=== PATIENT | male | born 1965 | race Caucasian/White ===

== ENCOUNTER 2019-03-25 23:20 | Inpatient (IN) | payer OTHER ==
--- OUTSIDE RECORDS SUMMARY | 2019-03-25 23:23 | XMS REPORT ---
:1965 [facility] Address [address] [place] [address] Care Team Providers Name Role Phone NIKITABRETTTO Unavailable Unavailable Problems This patient has no known problems. Allergies, Adverse Reactions, Alerts This patient has no known allergies or adverse reactions. Medications This patient has no known medications. Results Test Description Test Time Test Comments Text Results Atomic Results Result Comments BASIC METABOLIC PANEL 2019-03-04 06:15:00 Test Item Value Reference Range Comments SODIUM (BEAKER) (test 139 meq/L 136-145 mbna=944) POTASSIUM (BEAKER) (test 4.0 meq/L 3.5-5.1 idla=873) CHLORIDE (BEAKER) (test 107 meq/L 98-107 uigu=370) CO2 (BEAKER) (test afpk=569) 27 meq/L 22-29 BLOOD UREA NITROGEN (BEAKER) 16 mg/dL 7-21 (test jwnd=754) CREATININE (BEAKER) (test 1.06 mg/dL 0.57-1.25 jgjf=661) GLUCOSE RANDOM (BEAKER) 106 mg/dL 70-105 (test yzfc=329) CALCIUM (BEAKER) (test 8.8 mg/dL 8.4-10.2 wpfa=970) EGFR (BEAKER) (test 73 mL/min/1.73 sq m ESTIMATED GFR IS NOT dbsg=4644) ACCURATE CREATININE CLEARANCE IN PREDICTING GLOMERULAR FILTRATION RATE. ESTIMATED GFR IS NOT APPLICABLE FOR DIALYSIS PATIENTS. CBC (HEMOGRAM ONLY)2019-03-04 05:59:00 Test Item Value Reference Range Comments WHITE BLOOD CELL COUNT (BEAKER) (test hirh=461) 5.8 K/ L 3.5-10.5 RED BLOOD CELL COUNT (BEAKER) (test ruur=304) 4.18 M/ L 4.63-6.08 HEMOGLOBIN (BEAKER) (test mmgg=520) 13.3 GM/DL 13.7-17.5 HEMATOCRIT (BEAKER) (test mwbt=609) 40.3 % 40.1-51.0 MEAN CORPUSCULAR VOLUME (BEAKER) (test ksja=333) 96.4 fL 79.0-92.2 MEAN CORPUSCULAR HEMOGLOBIN (BEAKER) (test 31.8 pg 25.7-32.2 rlaa=148) MEAN CORPUSCULAR HEMOGLOBIN CONC (BEAKER) (test 33.0 GM/DL 32.3-36.5 pqen=928) RED CELL DISTRIBUTION WIDTH (BEAKER) (test 13.4 % 11.6-14.4 zxxy=018) PLATELET COUNT (BEAKER) (test bihh=079) 157 K/CU MM 150-450 MEAN PLATELET VOLUME (BEAKER) (test wljt=163) 11.6 fL 9.4-12.4 NUCLEATED RED BLOOD CELLS (BEAKER) (test 0 /100 WBC 0-0 vpqm=158)
[2019-03-26] MEDS ORDERED: MORPHINE 2 MG/ML SYR ONE (00:08)
[2019-03-26] MEDS ORDERED: FAMOTIDINE 20 MG/2 ML VIAL IV ONE (00:08)
[2019-03-26] MEDS ORDERED: ONDANSETRON 4 MG/2 ML VIAL ONE (00:08)
[2019-03-26 00:30] LABS: Basophils % 0.4 % (0-1.3); Hematocrit 46.6 % (39.6-49.0); Lymphocytes % 9.4 % (15.3-44.8); MPV 10.8 fL (7.6-11.3); Protime INR 1.06; RBC Red Blood Cell Count 4.97 M/uL (4.33-5.43)
[2019-03-26 00:35] LABS: ALT/SGPT 40 U/L (12-78); AST/SGOT 29 U/L (15-37); Albumin 4.6 g/dL (3.4-5.0); Alkaline Phosphatase 70 U/L (45-117); BUN Blood Urea Nitrogen 19 mg/dL (7-18); Bicarbonate 26 mmol/L (21-32); Bilirubin Direct 0.3 mg/dL (0-0.2); Bilirubin Total 1.1 mg/dL (0.2-1.0); Glucose Level 189 mg/dL (74-106); Lipase 69 U/L (73-393); Magnesium 1.9 mg/dL (1.8-2.4); NT PRO-BNP 503 pg/mL (<125); Potassium 3.7 mmol/L (3.5-5.1); Protein, Total 7.9 g/dL (6.4-8.2); Sodium Level 139 mmol/L (136-145); Troponin (Emerg Dept Use Only) < 0.02 ng/mL (0.0-0.045)
[2019-03-26] MEDS ORDERED: METRONIDAZOLE 500mg IVPB 500 MG/100 ML BAG IV ONE (01:08)
[2019-03-26] MEDS ORDERED: CEFTRIAXONE/SWI 1gm 1 GM/10 ML SYR ONE (01:08)
--- NOTE | 2019-03-26 01:25 | ER ---
Nurse's Notes [facility] Name: Terry Burns Age: 54 yrs Sex: Male : 1965 Arrival Date: 03/25/2019 Time: 23:25 Bed 8 Private MD: Diagnosis: Other intestinal obstruction-small bowel obstruction;Abdominal tenderness;Vomiting;Type 2 diabetes mellitus Presentation: 03/25 23:25 Presenting complaint: Patient states: N/V 2 hours after eating at [employer]. pt is the ak1 only one ill, pt is the only one who ate there. pt c/o lower left abd. pt was given 4 zofran IV in route. Transition of care: patient was not received from another setting of care. Onset of symptoms was March 25, 2019. Risk Assessment: Do you want to hurt yourself or someone else? Patient reports no desire to harm self or others. Initial Sepsis Screen: Does the patient meet any 2 criteria? No. Patient's initial sepsis screen is negative. Does the patient have a suspected source of infection? No. Patient's initial sepsis screen is negative. Care prior to arrival: None. 23:25 Method Of Arrival: EMS: [facility] 23:25 Acuity: NIRAJ 3 ak1 Triage Assessment: 23:28 General: Appears in no apparent distress. uncomfortable, well groomed, Behavior is ak1 calm, cooperative. Pain: Complains of pain in left lower quadrant. EENT: No signs and/or symptoms were reported regarding the EENT system. Neuro: Level of Consciousness is awake, alert, obeys commands, Oriented to person, place, time, situation, Moves all extremities. Speech is normal. Cardiovascular: Heart tones S1 S2 present. Respiratory: Airway is patent Respiratory effort is even, unlabored. GI: Abdomen is round Bowel sounds present X 4 quads. Reports lower abdominal pain, nausea, vomiting. : No signs and/or symptoms were reported regarding the genitourinary system. Derm: No signs and/or symptoms reported regarding the dermatologic system. Musculoskeletal: No signs and/or symptoms reported regarding the musculoskeletal system. Historical: - Allergies: 23:28 NKDA; ak1 - Home Meds: 23:37 allopurinol 100 mg Oral tab 1 tab once daily [Active]; [place] 10-325 mg Oral tab every 6 ak1 hours [Active]; Entresto 49-51 mg Oral tab 1 tab 2 times per day [Active]; carvedilol 25 mg oral tab 1 tab 2 times per day [Active]; amiodarone 200 mg Oral tab 1 tab once daily [Active]; levothyroxine 25 mcg tab 1 tab once daily [Active]; atorvastatin 10 mg oral tab 1 tab once daily [Active]; venlafaxine 150 mg oral tr24 1 tab twice daily [Active]; Lyrica 150mg Oral 1 cap 2 times per day [Active]; - PMHx: 23:28 arthralgias; CAD; CHF; CONSTIPATION - CHRONIC; Diabetes - NIDDM; Depression; Chronic ak1 pain; fatigue; Gout; Hyperlipidemia; Hypertension; Irregular heart rate; insomnia; muscle spasms; Pacemaker; wrist sprain; PERIPHERAL NEUROPATHY; low back pain; - PSHx: 23:28 Vasectomy; VSD repair; pacemaker/defibtrilator; back; neck; ak1 - Immunization history:: Adult Immunizations unknown. - Social history:: Smoking status: Patient/guardian denies using tobacco. - Ebola Screening: : No symptoms or risks identified at this time. - Family history:: not pertinent. Screenin:38 Abuse screen: Denies threats or abuse. Denies injuries from another. Nutritional ak1 screening: No deficits noted. Tuberculosis screening: No symptoms or risk factors identified. Fall Risk None identified. Assessment: 23:30 Reassessment: Patient appears in no apparent distress at this time. No changes from ak1 previously documented assessment. see triage assessment. no vomiting noted at this time. Vital Signs: 23:28 BP 164 / 86; Pulse 70; Resp 20; Temp 98.1; Pulse Ox 98% on R/A; Weight 95.25 kg (R); ak1 Height 6 ft. 0 in. (182.88 cm) (R); Pain 4/10; 03/26 01:22 BP 113 / 86; Pulse 69; Resp 18; Temp 98.1; Pulse Ox 96% on R/A; ak1 02:20 BP 119 / 57; Pulse 67; Resp 14; Temp 98.1; Pulse Ox 95% on R/A; ak1 03/25 23:28 Body Mass Index 28.48 (95.25 kg, 182.88 cm) ak1 ED Course: 03/25 23:25 Patient arrived in ED. ak1 23:26 Dov Gloria MD is Attending Physician. [facility] [place] 23:26 Triage completed. ak1 23:28 Arm band placed on Patient placed in an exam room, on a stretcher, on pulse oximetry, ak1 Patient notified of wait time. 23:30 Maintain EMS IV. Dressing intact. Site clean \T\ dry. Gauge \T\ site: 22g right AC. ak 1 23:34 Rose Bernardo, RN is Primary Nurse. ak1 23:38 Patient has correct armband on for positive identification. Bed in low position. Call ak1 light in reach. Side rails up X2. Pulse ox on. NIBP on. 03/26 00:16 CT Abd/Pelvis - Without Contrast In Process Unspecified. EDMS 00:34 XRAY Chest (1 view) In Process Unspecified. EDMS 01:21 NGT: inserted 12 Fr. via right nare. verified placement of air over stomach, verified ak1 return of gastric contents, to intermittent suction. Returned gastric contents. Patient tolerated well. 01:23 Augustin Arnold MD is Hospitalizing Provider. [facility] [place] 02:30 No provider procedures requiring assistance completed. Patient admitted, IV remains in ak1 place. Administered Medications: 00:18 Drug: NS 0.9% 250 ml Route: IV; Rate: bolus; Site: right antecubital; ak1 02:33 Follow up: IV Status: Completed infusion; IV Intake: 250ml ak1 00:18 Drug: NS 0.9% 1000 ml Route: IV; Rate: 125 ml/hr; Site: right antecubital; ak1 02:33 Follow up: IV Status: Infusion continued upon admission ak1 00:18 Drug: Zofran 4 mg Route: IVP; Site: right antecubital; ak1 00:57 Follow up: Response: No adverse reaction ak1 00:18 Drug: Pepcid 20 mg Route: IVP; Site: right antecubital; ak1 00:57 Follow up: Response: No adverse reaction ak1 00:19 Drug: morphine 2 mg Route: IVP; Site: right antecubital; ak1 02:36 Follow up: Response: No adverse reaction ak1 01:21 Drug: Rocephin 1 grams Route: IV; Rate: per protocol; Site: right antecubital; ak1 02:33 Follow up: IV Intake: 10ml ak1 02:34 Follow up: IV Status: Completed infusion ak1 01:21 Drug: Flagyl 500 mg Volume: 100 ml; Route: IVPB; Rate: 200 ml/hr; Infused Over: 30 ak1 mins; Site: right antecubital; 02:12 Follow up: IV Status: Completed infusion; IV Intake: 100ml lp1 02:33 Follow up: IV Status: Completed infusion ak1 Intake: 02:12 IV: 100ml; Total: 100ml. lp1 02:33 IV: 250ml; Total: 350ml. ak1 02:33 IV: 10ml; Total: 360ml. ak1 Outcome: 01:25 Decision to Hospitalize by Provider. aman 02:35 Admitted to Med/surg accompanied by tech, via stretcher, room 217, with chart, Report ak1 called to curt Montano 02:35 Condition: stable 02:35 Instructed on the need for admit. 03:10 Patient left the ED. lp1 Signatures: Dispatcher [employer] Dov Kenney MD MD cha Pena, Laura, RN RN lp1 Rose Bernardo, RN RN ak1
--- NOTE | 2019-03-26 01:26 | EDPHYS ---
Physician Documentation [facility] Name: Terry uBrns Age: 54 yrs Sex: Male : 1965 Arrival Date: 03/25/2019 Time: 23:25 Bed 8 Private MD: SANDRO Physician Dov Gloria HPI: 03/26 00:14 This 54 yrs old Male presents to ER via EMS with complaints of abdominal pain aman and vomiting. 00:14 The patient presents with abdominal pain in the upper abdomen, in the lower abdomen, aman abdominal distention in the upper abdomen, in the lower abdomen. Onset: The symptoms/episode began/occurred just prior to arrival. The patient presents to the emergency department with nausea, vomiting, abdominal pain, of the right upper quadrant and left upper quadrant. Onset: The symptoms/episode began/occurred just prior to arrival. Possible causes: unknown. The symptoms are aggravated by nothing. The symptoms are alleviated by nothing. Associated signs and symptoms: The patient has no apparent associated signs or symptoms. The symptoms do not radiate. Historical: - Allergies: 03/25 23:28 NKDA; ak1 - Home Meds: 23:37 allopurinol 100 mg Oral tab 1 tab once daily [Active]; [place] 10-325 mg Oral tab every 6 ak1 hours [Active]; Entresto 49-51 mg Oral tab 1 tab 2 times per day [Active]; carvedilol 25 mg oral tab 1 tab 2 times per day [Active]; amiodarone 200 mg Oral tab 1 tab once daily [Active]; levothyroxine 25 mcg tab 1 tab once daily [Active]; atorvastatin 10 mg oral tab 1 tab once daily [Active]; venlafaxine 150 mg oral tr24 1 tab twice daily [Active]; Lyrica 150mg Oral 1 cap 2 times per day [Active]; - PMHx: 23:28 arthralgias; CAD; CHF; CONSTIPATION - CHRONIC; Diabetes - NIDDM; Depression; Chronic ak1 pain; fatigue; Gout; Hyperlipidemia; Hypertension; Irregular heart rate; insomnia; muscle spasms; Pacemaker; wrist sprain; PERIPHERAL NEUROPATHY; low back pain; - PSHx: 23:28 Vasectomy; VSD repair; pacemaker/defibtrilator; back; neck; ak1 - Immunization history:: Adult Immunizations unknown. - Social history:: Smoking status: Patient/guardian denies using tobacco. - Ebola Screening: : No symptoms or risks identified at this time. - Family history:: not pertinent. ROS: 03/26 00:14 Constitutional: Negative for fever, chills, and weight loss, Eyes: Negative for injury, aman pain, redness, and discharge, ENT: Negative for injury, pain, and discharge, Neck: Negative for injury, pain, and swelling, Cardiovascular: Negative for chest pain, palpitations, and edema, Respiratory: Negative for shortness of breath, cough, wheezing, and pleuritic chest pain, Back: Negative for injury and pain, : Negative for injury, bleeding, discharge, and swelling, MS/Extremity: Negative for injury and deformity, Skin: Negative for injury, rash, and discoloration, Neuro: Negative for headache, weakness, numbness, tingling, and seizure, Psych: Negative for depression, anxiety, suicide ideation, homicidal ideation, and hallucinations, Allergy/Immunology: Negative for hives, rash, and allergies, Endocrine: Negative for neck swelling, polydipsia, polyuria, polyphagia, and marked weight changes, Hematologic/Lymphatic: Negative for swollen nodes, abnormal bleeding, and unusual bruising. Abdomen/GI: Positive for abdominal pain, nausea and vomiting, of the right upper quadrant, left upper quadrant, right lower quadrant and left lower quadrant. Exam: 00:14 Constitutional: This is a well developed, well nourished patient who is awake, alert, aman and in no acute distress. Head/Face: Normocephalic, atraumatic. Eyes: Pupils equal round and reactive to light, extra-ocular motions intact. Lids and lashes normal. Conjunctiva and sclera are non-icteric and not injected. Cornea within normal limits. Periorbital areas with no swelling, redness, or edema. ENT: Nares patent. No nasal discharge, no septal abnormalities noted. Tympanic membranes are normal and external auditory canals are clear. Oropharynx with no redness, swelling, or masses, exudates, or evidence of obstruction, uvula midline. Mucous membranes moist. Neck: Trachea midline, no thyromegaly or masses palpated, and no cervical lymphadenopathy. Supple, full range of motion without nuchal rigidity, or vertebral point tenderness. No Meningismus. Chest/axilla: Normal chest wall appearance and motion. Nontender with no deformity. No lesions are appreciated. Cardiovascular: Regular rate and rhythm with a normal S1 and S2. No gallops, murmurs, or rubs. Normal PMI, no JVD. No pulse deficits. Respiratory: Lungs have equal breath sounds bilaterally, clear to auscultation and percussion. No rales, rhonchi or wheezes noted. No increased work of breathing, no retractions or nasal flaring. Back: No spinal tenderness. No costovertebral tenderness. Full range of motion. Male : Normal genitalia with no discharge or lesions. Skin: Warm, dry with normal turgor. Normal color with no rashes, no lesions, and no evidence of cellulitis. MS/ Extremity: Pulses equal, no cyanosis. Neurovascular intact. Full, normal range of motion. Neuro: Awake and alert, GCS 15, oriented to person, place, time, and situation. Cranial nerves II-XII grossly intact. Motor strength 5/5 in all extremities. Sensory grossly intact. Cerebellar exam normal. Normal gait. Psych: Awake, alert, with orientation to person, place and time. Behavior, mood, and affect are within normal limits. 00:14 Abdomen/GI: Inspection: bruising, Bowel sounds: active, all quadrants, Palpation: mild abdominal tenderness, in the right upper quadrant and left upper quadrant. Vital Signs: 03/25 23:28 BP 164 / 86; Pulse 70; Resp 20; Temp 98.1; Pulse Ox 98% on R/A; Weight 95.25 kg (R); ak1 Height 6 ft. 0 in. (182.88 cm) (R); Pain 4/10; 03/26 01:22 BP 113 / 86; Pulse 69; Resp 18; Temp 98.1; Pulse Ox 96% on R/A; ak1 02:20 BP 119 / 57; Pulse 67; Resp 14; Temp 98.1; Pulse Ox 95% on R/A; ak1 03/25 23:28 Body Mass Index 28.48 (95.25 kg, 182.88 cm) ak1 MDM: 03/25 23:26 Patient medically screened. [facility] 03/26 00:14 Data reviewed: vital signs, nurses notes, lab test result(s), EKG, radiologic studies, [facility] CT scan, plain films. 03/25 23:51 Order name: Basic Metabolic Panel; Complete Time: 00:49 [facility] 03/25 23:51 Order name: CBC with Diff; Complete Time: 00:49 [facility] 03/25 23:51 Order name: LFT's; Complete Time: 00:49 [facility] 03/25 23:51 Order name: Magnesium; Complete Time: 00:49 [facility] 03/25 23:51 Order name: NT PRO-BNP; Complete Time: 00:49 [facility] 03/25 23:51 Order name: PT-INR; Complete Time: 00:49 [facility] 03/25 23:51 Order name: Troponin (emerg Dept Use Only); Complete Time: 00:49 [facility] 03/25 23:51 Order name: Lipase; Complete Time: 00:49 [facility] 03/25 23:53 Order name: Urine Culture [facility] 03/26 02:25 Order name: Lactate [facility] 03/26 02:25 Order name: Urinalysis [facility] 03/26 02:25 Order name: CBC with Automated Diff [facility] 03/26 02:25 Order name: CBC with Automated Diff [facility] 03/26 02:25 Order name: Comprehensive Metabolic Panel [facility] 03/25 23:51 Order name: XRAY Chest (1 view) [facility] 03/25 23:51 Order name: EKG; Complete Time: 23:52 [facility] 03/25 23:51 Order name: CT Abd/Pelvis - Without Contrast [facility] 03/26 02:25 Order name: CONS Physician Consult [facility] 03/26 02:25 Order name: Comprehensive Metabolic Panel [facility] 03/26 02:25 Order name: Magnesium [facility] 03/26 02:25 Order name: Magnesium [facility] 03/26 02:25 Order name: Phosphorus [facility] 03/26 02:25 Order name: Phosphorus [facility] 03/25 23:51 Order name: Cardiac monitoring; Complete Time: 00:19 [facility] 03/25 23:51 Order name: EKG - Nurse/Tech; Complete Time: 00:19 [facility] 03/25 23:51 Order name: IV Saline Lock; Complete Time: 23:52 [facility] 03/25 23:51 Order name: Labs collected and sent; Complete Time: 23:52 [facility] 03/25 23:51 Order name: O2 Per Protocol; Complete Time: 23:52 [facility] 03/25 23:51 Order name: O2 Sat Monitoring; Complete Time: 23:52 [facility] 03/26 00:51 Order name: NG Tube; Complete Time: 01:21 [facility] 03/26 02:13 Order name: NG Tube: low int suc; Complete Time: 02:17 [facility] 03/26 02:25 Order name: NPO EDMS Administered Medications: 00:18 Drug: NS 0.9% 250 ml Route: IV; Rate: bolus; Site: right antecubital; ak1 02:33 Follow up: IV Status: Completed infusion; IV Intake: 250ml ak1 00:18 Drug: NS 0.9% 1000 ml Route: IV; Rate: 125 ml/hr; Site: right antecubital; ak1 02:33 Follow up: IV Status: Infusion continued upon admission ak1 00:18 Drug: Zofran 4 mg Route: IVP; Site: right antecubital; ak1 00:57 Follow up: Response: No adverse reaction ak1 00:18 Drug: Pepcid 20 mg Route: IVP; Site: right antecubital; ak1 00:57 Follow up: Response: No adverse reaction ak1 00:19 Drug: morphine 2 mg Route: IVP; Site: right antecubital; ak1 02:36 Follow up: Response: No adverse reaction ak1 01:21 Drug: Rocephin 1 grams Route: IV; Rate: per protocol; Site: right antecubital; ak1 02:33 Follow up: IV Intake: 10ml ak1 02:34 Follow up: IV Status: Completed infusion ak1 01:21 Drug: Flagyl 500 mg Volume: 100 ml; Route: IVPB; Rate: 200 ml/hr; Infused Over: 30 ak1 mins; Site: right antecubital; 02:12 Follow up: IV Status: Completed infusion; IV Intake: 100ml lp1 02:33 Follow up: IV Status: Completed infusion ak1 Disposition: 03/26/19 01:25 Hospitalization ordered by Augustin Arnold for Inpatient Admission. Preliminary diagnosis are Other intestinal obstruction - small bowel obstruction, Abdominal tenderness, Vomiting, Type 2 diabetes mellitus. - Bed requested for Telemetry/MedSurg (Inpatient). - Status is Inpatient Admission. lp1 - Condition is Fair. - Problem is new. - Symptoms have improved. UTI on Admission? No Signatures: Dispatcher [employer] EDWA Sadie Hamilton RN RN mw Anderson, Corey, MD MD cha Pena, Laura, RN RN lp1 Rose Bernardo RN RN ak1 Corrections: (The following items were deleted from the chart) 01: 01:25 Hospitalization Ordered by Augustin Arnold MD for Inpatient Admission. Preliminary [facility] diagnosis is Other intestinal obstruction; Abdominal tenderness; Vomiting. Bed requested for Telemetry/MedSurg (Inpatient). Status is Inpatient Admission. Condition is Fair. Problem is new. Symptoms have improved. UTI on Admission? No. aman 01:25 01:25 03/26/2019 01:25 Hospitalization Ordered by Augustin Arnold MD for Inpatient aman Admission. Preliminary diagnosis is Other intestinal obstruction - small bowel obstruction; Abdominal tenderness; Vomiting. Bed requested for Telemetry/MedSurg (Inpatient). Status is Inpatient Admission. Condition is Fair. Problem is new. Symptoms have improved. UTI on Admission? No. aman 02:26 01:25 03/26/2019 01:25 Hospitalization Ordered by Augustin Arnold MD for Inpatient mw Admission. Preliminary diagnosis is Other intestinal obstruction - small bowel obstruction; Abdominal tenderness; Vomiting; Type 2 diabetes mellitus. Bed requested for Telemetry/MedSurg (Inpatient). Status is Inpatient Admission. Condition is Fair. Problem is new. Symptoms have improved. UTI on Admission? No. aman 02:28 02:26 03/26/2019 01:25 Hospitalization Ordered by Augustin Arnold MD for Inpatient mw Admission. Preliminary diagnosis is Other intestinal obstruction - small bowel obstruction; Abdominal tenderness; Vomiting; Type 2 diabetes mellitus. Bed requested for Telemetry/MedSurg (Inpatient). Status is Inpatient Admission. Condition is Fair. Problem is new. Symptoms have improved. UTI on Admission? No. 03:10 02:28 03/26/2019 01:25 Hospitalization Ordered by Augustin Arnold MD for Inpatient lp1 Admission. Preliminary diagnosis is Other intestinal obstruction - small bowel obstruction; Abdominal tenderness; Vomiting; Type 2 diabetes mellitus. Bed requested for Telemetry/MedSurg (Inpatient). Status is Inpatient Admission. Condition is Fair. Problem is new. Symptoms have improved. UTI on Admission? No. alma
[2019-03-26] MEDS ORDERED: ACETAMINOPHEN 650MG/RECT SUPP RECT PRN (02:18)
[2019-03-26] MEDS ORDERED: ONDANSETRON 4 MG/2 ML VIAL IV PRN ×2 (02:18→15:18)
--- NOTE | 2019-03-26 02:29 | P.HP ---
Certification for Inpatient Patient admitted to: Inpatient With expected LOS: >2 Midnights Patient will require the following post-hospital care: None Practitioner: I am a practitioner with admitting privileges, knowledge of patient current condition, hospital course, and medical plan of care. Services: Services provided to patient in accordance with Admission requirements found in Title 42 Section 412.3 of the Code of Federal Regulations Patient History Date of Service: 03/26/19 Reason for admission: SBO , Abdominal Pain History of Present Illness: 54-year-old male with past medical history of CAD, diabetes, hypertension, hyperlipidemia, CHF, status post defibrillator, peripheral neuropathy, admitted with abdominal distention and pain started today and has been progressively worsening. Started after having foot from outside and all of a sudden he felt abdominal pain and distention and has been progressively worsening since then associated with nausea. Denies any chest pain or shortness of breath No fever no chills Patient was assessed in the ER and a CT was consistent with SBO and was admitted for further management. He was also placed on an NG tube to low intermittent wall suction Allergies No Known Drug Allergies Allergy (Verified 03/26/19 03:22) Unknown Home medications list reviewed: Yes Home Medications: Amiodarone HCl [Cordarone*] 200 mg PO DAILY 08/27/15 Atorvastatin Calcium [Lipitor*] 20 mg PO BEDTIME 08/27/15 Hydrocodone 10/APAP 325 [[place] 10/325*] 1 tab PO Q6H PRN 08/27/15 Sacubitril/Valsartan [Entresto 49 mg-51 mg Tablet] 1 tab PO DAILY 08/27/15 Tizanidine [Zanaflex*] 4 mg PO BID 08/27/15 Torsemide [Demadex] 20 mg PO DAILY 08/27/15 allopurinoL [Zyloprim*] 100 mg PO DAILY 08/27/15 carvediloL [Coreg*] 25 mg PO BID 08/27/15 Lurasidone HCl [Latuda] 20 mg PO DAILY 6PM 10/07/15 Pregabalin [Lyrica] 150 mg PO BID 10/07/15 Venlafaxine HCl [Effexor Xr] 2 cap PO DAILY 10/07/15 Zolpidem Tartrate [Ambien Cr] 12.5 mg PO BEDTIME PRN PRN 10/07/15 clonazePAM [Klonopin*] 0.5 mg PO BID PRN 10/07/15 - Past Medical/Surgical History Diabetic: Yes Past Medical History: Reviewed- Non-Contributory -: CAD -: CHF -: Hyperlipidemia -: NIDDM -: gout -: HTN -: constipation -: insomnia -: peripheral neuropathy -: depression -: Chronic pain Past Surgical History: Reviewed- Non-Contributory -: vasectomy -: pacemaker/defibrillator -: VSD repair -: Back & neck surgery - Family History Family History: Reviewed- Non-Contributory - Family History Father -: Heart disease Mother Notes: Alzheimer's - Social History Smoking Status: Never smoker Alcohol use: No CD- Drugs: No Caffeine use: Yes Review of Systems 10-point ROS is otherwise unremarkable Physical Examination - Vital Signs Temperature: 98.3 F Blood Pressure: 140/82 Pulse: 76 Respirations: 18 - Physical Exam General: Alert, Oriented x3, Mild distress HEENT: Atraumatic, Normocephalic Neck: Supple, 2+ carotid pulse no bruit Respiratory: Clear to auscultation bilaterally, Normal air movement Cardiovascular: Regular rate/rhythm, Normal S1 S2 Capillary refill: <2 Seconds Gastrointestinal: W/out hepatosplenomegaly, No tenderness, No guarding, Absent bowel sounds, Distended Musculoskeletal: No clubbing, No swelling Integumentary: No rashes, No breakdown Neurological: Normal speech, Normal strength at 5/5 x4 extr Lymphatics: No axilla or inguinal lymphadenopathy Urinary: Other (No bladder distention) External genitalia: Deferred Rectal: Deferred - Studies Laboratory Data (last 24 hrs) 03/25/19 23:55: PT 12.5, INR 1.06 03/25/19 23:55: WBC 10.5, Hgb 15.5, Hct 46.6, Plt Count 226 03/25/19 23:55: Sodium 139, Potassium 3.7, BUN 19 H, Creatinine 1.27, Glucose 189 H, Magnesium 1.9, Total Bilirubin 1.1 H, AST 29, ALT 40, Alkaline Phosphatase 70, Lipase 69 L Assessment and Plan - Problems (Diagnosis) (1) Cardiomyopathy as manifestation of underlying disease Onset Date: 10/07/15 Current Visit: No Status: Acute (2) History of implantable cardioverter-defibrillator (ICD) placement Onset Date: 10/07/15 Current Visit: No Status: Acute (3) Diabetes Current Visit: Yes Status: Acute - Plan Small-bowel obstruction Diabetes hypertension hyperlipidemia CAD CHF status post AICD Peripheral neuropathy Plan Keep NPO IV fluids NG tube to low intermittent wall suction Pain control Surgical consult Insulin sliding scale Antihypertensives titrated Will get a small-bowel follow-through in the morning if okay with surgery Monitor closely under telemetry GI/DVT prophylaxis Discharge Plan: Home Plan to discharge in: 72 Hours - Advance Directives Does patient have a Living Will: No Does patient have a Durable POA for Healthcare: No Time Spent Managing Pts Care (In Minutes): 43
[2019-03-26] MEDS ORDERED: D50W 25 GM/50 ML SYRINGE/VIAL IV PRN (02:34)
[2019-03-26] MEDS ORDERED: GLUCAGON 1 MG/VIAL IM PRN (02:34)
[2019-03-26] MEDS: NA CHLORIDE 0.9% 1,000 ML IV SCH ×2 (03:51→15:58)
[2019-03-26] MEDS ORDERED: KCL 20 MEQ/100 mL IVPB 20 MEQ/100 ML BAG IV SCH (04:00)
[2019-03-26] MEDS ORDERED: SODIUM CHLORIDE 0.9% 10ML INJ IV PRN (04:06)
[2019-03-26 04:18] LABS: Urine Appearance CLEAR; Urine Bilirubin NEGATIVE (NEG); Urine Blood NEGATIVE (NEG); Urine Color YELLOW; Urine Glucose NEGATIVE (NEG); Urine Protein NEGATIVE (NEG); Urine Specific Gravity 1.015 (1.005-1.030); Urine Urobilinogen 0.2 mg/dL (0.2-1.0); Urine pH 7.5 (5.0-7.0)
[2019-03-26 04:23] VITALS: O2SAT 95
[2019-03-26 04:34] LABS: Urine Microscopic Reflex NO UMIC
[2019-03-26 04:41] VITALS: BMI 27.6
[2019-03-26] MEDS: PANTOPRAZOLE 40 MG INJ IVP SCH ×3 (04:57→21:17)
[2019-03-26] MEDS: MORPHINE 2 MG/ML SYR IV PRN ×4 (05:44→18:01)
[2019-03-26] MEDS ORDERED: INSULIN -REGULAR HUMAN 50 UNIT/0.5 ML ML SQ SCH ×2 (06:00→07:30)
--- NOTE | 2019-03-26 12:00 | RAD REPORT ---
EXAM DESCRIPTION: CT - Abdomen Pelvis Wo Contrast - 03/26/2019 12:35 am CLINICAL HISTORY: Generalized abdominal pain. COMPARISON: None Available. TECHNIQUE: CT of the abdomen and pelvis without IV contrast. Evaluation of the solid organs and vasc ulature is suboptimal due to lack of IV contrast. FINDINGS: Lung Bases: The visualized lung bases are clear. Prior median sternotomy. Pacemaker lead partially visualized. Bones: Degenerative disc height narrowing and endplate spondylosis at L5/S1. Abdomen: Liver: The liver has normal size and density. Gallbladder: No calcified gallstones. Spleen, Pancreas, and Adrenal Glands: The spleen, pancreas, and adrenal glands are unremarkable. Kidneys: The kidneys have normal size without evidence of hydronephrosis. No obstructing ureteral cedric culi. 2.2 cm cystic structure arising from the interpolar left kidney likely represents a cyst but is incompletely evaluated without IV contrast. Vasculature: Aortoiliac atherosclerosis. IVC is unremarkable. Stomach: The stomach and duodenum have normal course. Other: No free intraperitoneal air. No free fluid or lymphadenopathy. Pelvis: Bladder: Urinary bladder is unremarkable. Bowel: Dilated loops of small bowel with distally decompressed loops of small bowel. Transition to decompressed loops of bowel within the right side of the abdomen without well-defined transition poin t identified. Appendix: Normal appendix. Pelvis: Prostate is not enlarged. IMPRESSION: 1. Findings compatible with small bowel obstruction. Transition to decompressed distal s mall bowel is in the right abdomen however a definite transition point is not visualized on this stud y. This exam was performed according to our departmental dose-optimization program, which includes autom ated exposure control, adjustment of the mA and/or kV according to patient size and/or use of iterati ve reconstruction technique. Electronically signed by: Leonard Butler 03/26/2019 12:30 AM SOLUTION ANALYST Due to temporary technical issues with the PACS/Fluency reporting system, reports are being signed by the in house radiologist as a courtesy to ensure prompt reporting. The interpreting radiologist is f rgly responsible for the content of the report.
--- NOTE | 2019-03-26 13:12 | RAD REPORT ---
EXAM DESCRIPTION: RAD - Chest Single View - 03/26/2019 12:34 am CLINICAL HISTORY: ABDOMINAL DISTENTION Chest pain. COMPARISON: No comparisons FINDINGS: Portable technique limits examination quality. The lungs are grossly clear. The heart is moderately enlarged with multilead pacer/defibrillator stella ce. No displaced fractures.Sternotomy wires noted. Mild atherosclerosis IMPRESSION: No acute intrathoracic process suspected.
--- NOTE | 2019-03-26 14:25 | CON ---
Date of Consultation: 03/26/2019 Reason: Possible bowel obstruction. History Of Present Illness: Patient is a 54-year-old gentleman with a cardiac history, who comes in with acute onset of nausea and vomiting and some crampy abdominal pain. Had a bowel movement yesterd ay. Has not passed gas since. Had a CAT scan done, was suspicious for an ileus versus early small b owel obstruction. I was consulted. He is awake, alert, in no pain at this time. No blood in the st ool. No dysuria or hematuria. No sore throat, runny nose, cough, headaches, or dizziness. No chest pain. No fever or chills. Review of Systems: Otherwise unremarkable. Past Medical History: Significant for congestive heart failure. Past Surgical History: Significant for back surgery. Allergies: REVIEWED. Social History: Patient denies smoking or drinking currently. Family History: Noncontributory. Objective: Vital Signs: Stable. Afebrile. Head and Neck: No masses. Chest: Clear. Heart: S1, S2. General: He is awake, alert, and oriented x3. Abdomen: Soft. Minimal distention. No rebound, rigidity, or guarding. No tenderness. Hypoactive bowel sounds. Extremities: Adequately perfused. Nontender. Neuro: Nonfocal. Diagnostic Studies: CT scan and laboratory datawere reviewed. CT scan essentially shows enteritis, ileus. There is no transition point. There is slightly dilated small bowel up to the terminal ileum . Assessment: Enteritis, ileus, possible early bowel obstruction. Recommendations: Continue n.p.o., NG tube, IV fluid, IV antibiotic. Check abdominal x-ray, serial a bdominal exam. No need for any acute surgical intervention at this time. We will follow this patien t while in the hospital. /MODL Voice ID: [id number] Report ID: [id number]
--- NOTE | 2019-03-26 15:34 | PN ---
Date of Progress Note: 03/26/2019 Subjective: Patient seen and examined, chart reviewed and case discussed with RN and Dr. Beauchamp. Patient states he feels better. Has NG tube in place. Has not passed any gas. Abdominal pain is controlled. Medications: List reviewed. Physical Examination: Vital Signs: Temperature 97.1, heart rate 66, blood pressure 138/62, respirations 18, O2 95% on room air. General: Awake, alert, oriented x3. Some mild distress, ill-appearing male. CV: S1, S2. Regular rate and rhythm. Peripheral pulses present. Respiratory: Moving air well bilaterally. No wheezing or stridor. Gastrointestinal: Abdomen is distended. Mild tenderness to palpation. Absent bowel sounds. No guarding or rigidity. Extremities: No clubbing, cyanosis, or edema. Neurologic: Nonfocal. 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 Assessment: 54-year-old male with: 1. Small bowel obstruction. We will continue with NG tube placement and suctioning if repeat x-ray is improved. We will clamp the tube and start on clear liquids. Appreciate Dr. Beauchamp's input. Does not recommend any surgical intervention at this time. 2. Obesity. 3. Osteoarthritis. 4. Systolic congestive heart failure chronic will continue with entresto. Monitor fluid balance. 5. Status post ICD 6. Diabetes mellitus type 2 insulin-requiring. Continue sliding scale insulin and monitor blood glucose levels 7. Mixed hyperlipidemia Deep venous thrombosis prophylaxis, SCDs. 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 May advance diet if improving. Likely be discharged in the next 24 to 48 hours depending on clinical response. /NIYA Voice ID: [id number] Report ID: [id number] SILVA
--- NOTE | 2019-03-26 16:19 | RAD REPORT ---
EXAM DESCRIPTION: RAD - Abdomen Acute Series - 03/26/2019 2:43 pm CLINICAL HISTORY: abd pain, SBO COMPARISON: Chest Single View dated 03/26/2019 FINDINGS: Emphysematous changes are present. Enteric tube tip is in the stomach. The heart is mildly prominent with a multi lead pacer/defibrillator device. Sternotomy wires are present. No bowel obstruction is evident. No pneumoperitoneum seen. IMPRESSION: A bowel obstruction is not seen.
[2019-03-26] MEDS ORDERED: HYDROMORPHONE HCL 1 MG/ML INJ IV ONE (20:23)
[2019-03-26] MEDS ORDERED: HYDROMORPHONE HCL 1 MG/ML INJ ONE (21:14)
[2019-03-27] MEDS: HYDROMORPHONE HCL 1 MG/ML INJ IV PRN ×2 (01:03→05:20)
[2019-03-27] MEDS ORDERED: HYDROMORPHONE HCL 1 MG/ML INJ ONE ×2 (01:04→05:19)
[2019-03-27] MEDS: NA CHLORIDE 0.9% 1,000 ML IV SCH (05:20)
[2019-03-27 06:34] LABS: Absolute Lymphocytes (CBC) 2.1 K/uL (0.7-4.9); Basophils % 0.3 % (0-1.3); Hematocrit 40.9 % (39.6-49.0); Lymphocytes % 32.6 % (15.3-44.8); MPV 10.4 fL (7.6-11.3); RBC Red Blood Cell Count 4.28 M/uL (4.33-5.43)
[2019-03-27 06:52] LABS: Albumin 3.9 g/dL (3.4-5.0); Bilirubin Total 0.7 mg/dL (0.2-1.0); Magnesium 2.1 mg/dL (1.8-2.4); Phosphorus 2.1 mg/dL (2.5-4.9); Potassium 4.2 mmol/L (3.5-5.1)
[2019-03-27] MEDS ORDERED: allopurinoL 100 MG TAB PO SCH (09:00)
[2019-03-27] MEDS ORDERED: PREGABALIN 150 MG CAP PO SCH (09:00)
[2019-03-27] MEDS ORDERED: VENLAFAXINE HCL PO SCH (09:00)
[2019-03-27] MEDS ORDERED: carvediloL 25 MG TAB PO SCH (09:00)
[2019-03-27] MEDS ORDERED: AMIODARONE HCL 200 MG TAB PO SCH (09:00)
[2019-03-27] MEDS ORDERED: ATORVASTATIN 10 MG TAB PO SCH (09:00)
[2019-03-27] MEDS ORDERED: SACUBITRIL/VALSARTAN 49/51 MG TAB PO SCH (09:00)
[2019-03-27] MEDS: POTASS/SODIUM PHOSPHATE 1 PKT POWD.PACK PO SCH ×3 (09:49→12:42)
[2019-03-27] MEDS: PANTOPRAZOLE 40 MG INJ IVP SCH (09:53)
[2019-03-27] MEDS ORDERED: VENLAFAXINE HCL XR 75 MG CAP PO SCH (10:00)
--- NOTE | 2019-03-27 15:30 | DS ---
Consultants: Dr. Beauchamp with General Surgery. Admitting Diagnoses: 1.Small-bowel obstruction. 2.Diabetes mellitus type 2, insulin requiring with hyperglycemia. 3.Coronary artery disease, [place] artery, [place] heart, without angina. 4.Congestive heart failure, chronic, likely diastolic dysfunction. 5.Mixed hyperlipidemia. 6.Gout, stable. 7.Essential hypertension, stable. 8.Peripheral neuropathy. 9.Chronic pain syndrome. 10.Major depressive disorder. 11.Insomnia. Discharge Diagnoses: 1.Small-bowel obstruction, resolved. 2.Diabetes mellitus type 2 insulin requiring with hyperglycemia, stable. 3.Coronary artery disease, [place] artery, [place] heart, without angina, stable. 4.Congestive heart failure, systolic dysfunction. Last known ejection fraction is 40% to 45%. 5.Osteoarthritis. 6.Chronic pain syndrome, stable. 7.Overweight, BMI 27. 8.Mixed hyperlipidemia, on statin. 9.Gout, on allopurinol. 10.Essential hypertension, stable. 11.Insomnia. 12.Peripheral neuropathy, on Lyrica. 13.Major depressive disorder, on Effexor. 14.Generalized anxiety disorder, on Klonopin. Hospital Course: Patient is a 54-year-old male with multiple chronic medical conditions, who comes i n with small bowel obstruction and abdominal pain. Patient was found to have small-bowel obstruction on CAT scan and ileus. Patient had NG tube placed and was kept n.p.o. Patient had improvement in h is symptoms with conservative treatment. He was seen by Dr. Beauchamp with General Surgery, who did not recommend any surgical intervention at that time. Patient's NG tube was clamped after repeat abdomin al series showed improvement in his small-bowel obstruction. Patient was started on clear liquids an d tolerated well. Patient tolerated full liquids the following day and was advanced to GI soft diet. He did not have any further nausea and vomiting. NG tube was discontinued. He did have some mild hypophosphatemia, which was corrected. Overall, the patient did well. His symptoms resolved. He wa s then cleared for discharge from surgical standpoint. He was then discharged home in a stable condi tion. Activity: As tolerated. Medications: As per medication reconciliation list. Followup: Follow up with primary care physician in 2 to 3 days. Return to ER for worsening conditio n. Physical Examination: General: Awake, alert, oriented x3. No acute distress. CV: S1, S2. No murmurs. Respiratory: Moving air well bilaterally. No wheezing or stridor. Gastrointestinal: Abdomen is soft, nontender, nondistended. Positive bowel sounds. No guarding or rigidity. Extremities: No clubbing, cyanosis, or edema. Neurologic: Nonfocal. Total time spent discharging the patient was 34 minutes. [place] Voice ID: [id number] Report ID: [id number]
[2019-03-27] MEDS ORDERED: HYDROCODONE/APAP 10/325 TAB PO PRN (16:46)
[2019-03-27 18:56] VITALS: BP 114/65; TEMP 97.9
[2019-03-28] MEDS ORDERED: LEVOTHYROXINE SOD 0.025 MG TAB PO SCH (06:30)
--- NOTE | 2019-03-28 08:14 | EKG ---
Test Date: 2019-03-26 Test Time: 00:14:01 Mixing Engineer: MARIAELENA MEASUREMENT RESULTS: Intervals: Rate: 73 UT: 190 QRSD: 160 QT: 492 QTc: 542 [place]: P: 77 UT: 190 QRS: 250 T: 84 INTERPRETIVE STATEMENTS: Normal sinus rhythm Right bundle branch block T wave abnormality, consider lateral ischemia Abnormal ECG Compared to ECG 10/06/2015 17:55:20 No significant changes Electronically Signed On 03-28-19 08:10:48 POULTRY F[employer] by Errol Powers
== END 2019-03-27 18:27 | disposition home or self-care (01) | DRG 389 ==
LOC: ER 23:20 → 2ND 03-26 02:37
PROVIDERS: ADMIT Family Medicine; ATTEND Family Medicine
DX: K56.609 Unspecified intestinal obstruction, unspecified as to partial versus complete obstruction (principal); I42.9 Cardiomyopathy, unspecified; I50.22 Chronic systolic (congestive) heart failure; I11.0 Hypertensive heart disease with heart failure; I25.10 Atherosclerotic heart disease of native coronary artery without angina pectoris; E78.5 Hyperlipidemia, unspecified; E11.65 Type 2 diabetes mellitus with hyperglycemia; G62.9 Polyneuropathy, unspecified; M19.90 Unspecified osteoarthritis, unspecified site; E66.9 Obesity, unspecified; Z95.810 Presence of automatic (implantable) cardiac defibrillator
CPT/HCPCS: 36415; 71045; 74022; 74176; 80048; 80053; 80076; 81003; 82947; 83605; 83690; 83735; 83880; 84100; 84484; 85025; 85610; 93005; 96361; 96365; 96368; 96375; 99285; C9113; J0696; J1170; J2270; J2405; J7030

== ENCOUNTER 2020-06-23 06:31 | Inpatient (IN) | payer OTHER ==
--- OUTSIDE RECORDS SUMMARY | 2020-06-23 06:35 | XMS REPORT | Continuity of Care Document ---
:1965 Author Organization [facility] t Address [address] [place] [address] Care Team Providers Name Role Phone Ryan Brown MD Primary Care Physician Ryan Brown Attending Clinician [phone] MEKA Attending Clinician Unavailable DONALDO Attending Clinician Unavailable BENSON Attending Clinician Unavailable MAE Attending Clinician Unavailable NIKITA Attending Clinician Unavailable FRIDA Attending Clinician Unavailable NIKITA Admitting Clinician Unavailable Problems Condition Condition Condition Status Onset Resolution Last Treating Co mments Source Name Details Category Date Date Treatment Clinician Date TGV TGV Disease Active 2018-[address] [facility] (transposi (transposi 2-02 Renee kes - tion of tion of 00:00: Medical great great 00 [place] vessels) vessels) ICD ICD Disease Active 2018-[address] [facility] (implantab (implantab 2-02 Renee kes - le le 00:00: Medical cardiovert cardiovert 00 Ce nter er-defibri er-defibri llator) llator) battery battery depletion depletion Congenital Congenital Disease Active [facility] heart heart 12-25 [facility] - disease in disease in 00:00: Me dical adult adult 00 Center S/P S/P Disease Active [facility] Mustard Mustard 12-25 [facility] - operation operation 00:00: Medi cedric 00 Center CAD CAD Disease Active [facility] (coronary (coronary 12-25 [facility] - artery artery 00:00: Medical disease) disease) 00 Center Low back Low back Disease Active [facility] pain pain 9 [facility] - 00:00: Medical 00 Center Troponin Troponin Disease Active [facility] level level 9 [facility] - elevated elevated 00:00: Medica l 00 Center Polyarthri Polyarthri Problem Active U nivers tis of tis of ity of multiple multiple [place] sites sites Physici ans Low back Low back Problem Active Unive rs pain pain ity of [place] Physici ans Osteoarthr Osteoarthr Problem Active U nivers itis, itis, ity of multiple multiple [place] sites sites Physici ans Osteoarthr Osteoarthr Problem Active U nivers itis of itis [place] of hand, [place] Osteoarthr Osteoarthr Problem Active U nivers itis of itis of ity of hand, hand, [place] right right Physici ans Epicondyli Epicondyli Problem Active U nivers tis, tis, ity of lateral lateral [place] Physici ans Calcium Calcium Problem Active Univers pyrophosph pyrophosph it y of ate ate [place] arthropath arthropath Ph ysici y y ans Hypothyroi Hypothyroi Problem Active U nivers dism dism ity of [place] Physici ans 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 Family History Family Member Diagnosis Comments Start Date Stop Date Source Natural father Arthritis [facility] Natural mother Mental illness [facility] Social History Social Habit Start Date Stop Date Quantity Comments Source Alcohol Comment 1 beer every 6 [facility] months [facility] Sex Assigned At [facility] Tobacco use and 2019-03-05 2019-03-05 Never used [facility] - exposure 00:00:00 00:00:00 [facility] Alcohol intake 2019-03-05 2019-03-[address] [facility]00[facility]00 [facility] (finding) Smoking Status Start Date Stop Date Source Never smoker [facility] - edical [place] Medications Ordered Filled Start Stop Current Ordering Indication Dosage Frequency Signature Comments Components Source Medication Medication Date Date Medication? Clinician (SIG) Name Name Vitamin D Vitamin D 0 Yes COCO TAKE 1 Univers (Ergocalcif (Ergocalcif 8-25 DONALDO CAPSULE ity of mu) 1.25 mu) 1.25 00:00: M.D. TWICE [place] MG (27340 MG (43685 00 WEEKLY. Ph ysici [place]) Oral [place]) Oral ans Capsule Capsule Allopurinol Allopurinol 0 Yes COCO QD TAKE 1 Univers 300 MG Oral 300 MG Oral 8-17 DONALDO TABLET ity of Tablet Tablet 00:00: M.D. DAILY [place] 00 DIRECTED. Physici ans predniSONE predniSONE 2019-0 Yes COCO When you Univers 10 MG Oral 10 MG Oral 8-17 DONALDO have a ity of Tablet Tablet 00:00: M.D. flare, [place] 00 take 2 Physici tabs daily ans for 3 days, then take 1 tab daily for 3 days, then take 0.5 tabs daily for 3 days, then off. carvedilol 2018-04 Yes hypertensio 6.25mg Take 6.[address] (COREG) 2-02 n mg by Sam - 6.25 MG 20:38: mouth 2 Medical tablet 11 (two) Center times daily with breakfast and dinner. amiodarone 2018-04 Yes prevention 200mg QD Take [address] (PACERONE) 2-02 of mg by Sam - 200 MG 20:38: recurrent mouth Medic al tablet 11 atrial daily. [place] fibrillatio n venlafaxine 2018-04 Yes generalized 150mg QD Take [address] (EFFEXOR-XR 2-02 anxiety mg by Wilbert s - ) 150 MG 24 20:38: disorder mouth M edical hr capsule 11 daily. [place] HYDROcodone 2018-04 Yes pain 1{tbl} Take [address] -acetaminop 2-02 tablet by Tracey macdonald (LORTAB 20:38: mouth Medic al 10-500) 11 every 8 Center 10-500 mg (eight) per tablet hours as needed. zolpidem 2018-04 Yes 12.5mg Take 12.[address] (AMBIEN CR) 2-02 mg by [facility] - 12.5 MG CR 20:38: mouth Medica l tablet 11 every Center night as needed. sacubitril- 2018-04 Yes 1{tbl} Q.5D Take [address] valsartan 2-02 tablet by [facility] - (ENTRESTO) 20:38: mouth 2 Medi cedric 49-51 mg 11 (two) Center Tab times daily. atorvastati 2018-04 Yes 40mg QD Take [address] n (LIPITOR) 2-02 by mouth Luke s - 40 MG 20:38: daily. Medical tablet 11 [place] torsemide 2018-04 Yes 20mg QD Take [address] (DEMADEX) 2-02 by mouth [facility]ukes - 20 MG 20:38: daily. Medical tablet 11 [place] allopurinol 2018-04 Yes 100mg QD Take [address] (ZYLOPRIM) 2-02 mg by [facility] - 100 MG 20:38: mouth Medical tablet 11 daily. [place] levothyroxi 2018-04 Yes 100ug Take [address] ne 2-02 mcg by [facility]ukes - (SYNTHROID, 20:38: mouth Medic al LEVOTHROID) 11 Every Center 100 MCG morning on tablet an empty stomach. pregabalin 2018-04 Yes 100mg Q.5D Take [address] (LYRICA) 2-02 mg by [facility] - 100 MG 20:38: mouth 2 Medical capsule 11 (two) Center times daily. Pregabalin Pregabalin Yes Uni vers 150 MG Oral 150 MG Oral i ty of Capsule Capsule [place] Physici ans Carvedilol Carvedilol Yes Uni vers 25 MG Oral 25 MG Oral ity of Tablet Tablet [place] Physici ans Entresto Entresto Yes Univers 49-51 MG 49-51 MG ity of Oral Tablet Oral Tablet [place] Physici ans Amiodarone Amiodarone Yes Uni vers HCl - 200 HCl - 200 ity o f MG Oral MG Oral [place] Tablet Tablet Physici ans Torsemide Torsemide Yes Unive rs 20 MG Oral 20 MG Oral ity of Tablet Tablet [place] Physici ans L-Thyroxine L-Thyroxine Yes U nivers TABS TABS ity of [place] Physici ans Venlafaxine Venlafaxine Yes U nivers HCl ER 150 HCl ER 150 ity of MG Oral MG Oral [place] Tablet Tablet Physici Extended Extended ans Release 24 Release 24 Hour Hour Zolpidem Zolpidem Yes Univers Tartrate Tartrate ity of TABS TABS [place] Physici ans Vital Signs Vital Name Observation Time Observation Value Comments Source Systolic blood 2020-02-24 101 mm[Hg] Location: [facility]; [facility] 16:16:00 Position: [place] Physician s Sitting Diastolic blood 2020-02-24 66 mm[Hg] Location: [facility] 16:16:00 Position: [place] Physician s Sitting Weight 2020-02-24 198.5 [lb_av] [facility] 16:16:00 [place] Physician s Body mass index 2020-02-24 26.92 kg/m2 [place] o f (BMI) [Ratio] 16:16:00 [place] Physicia ns Heart Rate 2020-02-24 87 /min Location: R [facility] 16:16:00 Carotid; [place] Physician s Body temperature 2020-02-24 95.1 [degF] [facility] 16:16:00 [place] Physician s Systolic blood 2019-11-18 126 mm[Hg] Location: [facility] 12:32:00 Position: [place] Physician s Sitting Diastolic blood 2019-11-18 83 mm[Hg] Location: [facility] 12:32:00 Position: [place] Physician s Sitting Weight 2019-11-18 208.9 [lb_av] [facility] 12:32:00 [place] Physician s Body mass index 2019-11-18 28.33 kg/m2 [place] o f (BMI) [Ratio] 12:32:00 [place] Physicia ns Heart Rate 2019-11-18 73 /min Location: R [facility] 12:32:00 Carotid; [place] Physician s Body temperature 2019-11-18 96.4 [degF] Method: [facility] 12:32:00 Temporal [place] Physician s Systolic blood 2019-09-02 107 mm[Hg] Location: [facility]; [facility] 10:38:00 Position: [place] Physician s Sitting Diastolic blood 2019-09-02 72 mm[Hg] Location: [place]; [facility] 10:38:00 Position: [place] Physician s Sitting Body height 2019-09-02 72 [in_us] [facility] 10:38:00 [place] Physician s Weight 2019-09-02 202.4375 [lb_av] [facility] 10:38:00 [place] Physician s Body mass index 2019-09-02 27.46 kg/m2 [facility] (BMI) [Ratio] 10:38:00 [place] Physicia ns Body temperature 2019-09-02 97.9 [degF] Method: [facility] 10:38:00 Tympanic [place] Physician s Heart Rate 2019-09-02 78 /min [facility] 10:38: [place] Physician s Procedures Procedure Date / Time Performed Performing Clinician Sour e [QL] CBC (INCLUDES 2020-02-24 00:00:00 [facility] DIFF/PLT) Physicians [QL] CMP W/EGFR 2020-02-24 00:00:00 [facility] Physicians [QL] URIC ACID 2020-02-24 00:00:00 [facility] Physicians [QL] PHOSPHATE ( 2020-02-24 00:00:00 [facility] PHOSPHORUS) Physicians [QL] CALCIUM, IONIZED 2020-02-24 00:00:00 [facility] Physicians [QL] PTH, INTACT 2020-02-24 00:00:00 [facility] (WITHOUT CALCIUM) Physicians [QL] VITAMIN D, 2020-02-24 00:00:00 [facility] 25-HYDROXY, LC/MS/MS Physicians [QL] CREATINE KINASE, 2020-02-24 00:00:00 [facility] TOTAL Physicians [QL] CMP W/EGFR 2019-11-18 00:00:00 [facility] Physicians [QL] VITAMIN D, 2019-11-18 00:00:00 [facility] 25-HYDROXY, LC/MS/MS Physicians [QL] PTH, INTACT 2019-11-18 00:00:00 [facility] (WITHOUT CALCIUM) Physicians [QL] CALCIUM, IONIZED 2019-11-18 00:00:00 [facility] Physicians [QL] HLA-B27, DNA 2019-09-10 00:00:00 [facility] TYPING Physicians [QL] MAGNESIUM 2019-09-10 00:00:00 [facility] Physicians [QL] PHOSPHATE ( 2019-09-10 00:00:00 [facility] PHOSPHORUS) Physicians [QL] TSH, 3RD 2019-09-10 00:00:00 [facility] GENERATION W/REFLEX TO Physician s FT4 [Q] PTH, INTACT AND 2019-09-10 00:00:00 [facility] CALCIUM Physicians [Q] IRON, TIBC AND 2019-09-10 00:00:00 [facility] y [facility] FERRITIN PANEL Physicians [A] Xray HAND MIN. OF 2019-09-02 00:00:00 [facility] [place] 3 VIEWS Physicians [A] Xray WRIST 2 VIEWS 2019-09-02 00:00[facility] X[facility] ELBOW 2 VIEWS 2019-09-02 00:00[facility]00 [facility] [A] Xray FOOT 2 VIEWS 2019-09-02 00:00:00 [facility] [place] Physicians [A] Xray ANKLE 2 VIEWS 2019-09-02 00:00:00 [facility] [A] Xray SACROILIAC 2019-09-02 00:00:00 [facility] JOINTS 3 OR MORE VIEWS Physician s Plan of Care Planned Activity Planned Date Details Comments Source Future Scheduled 2019-12-03 INFLUENZA VACCINE (#1) [facility] 00:00:00 [code = INFLUENZA Medical Ce nter VACCINE (#1)] Future Scheduled 2017-05-[address] [facility] - Test 00:00:00 WELLNESS (YEAR 2 or Medical Center FIRST YEAR if no IPPE) [code = MEDICARE ANNUAL WELLNESS (YEAR 2 or FIRST YEAR if no IPPE)] Future Scheduled [address] [facility] - Test 00:00:00 (procedure) [code = Medical Center 55356866] Future Scheduled [address] [facility] - Test 00:00:00 0-64 YRS (1 of 1 - Medical C enter PPSV23) [code = PNEUMOCOCCAL VACCINE 0-64 YRS (1 of 1 - PPSV23)] Future Scheduled [address] [facility] - Test 00:00:00 malignant neoplasm of Medica l Center colon (procedure) [code = 261118461] Encounters Start End Encounter Admission Attending Care Care Encounter Source Date/Time Date/Time Type Type Clinicians Facility Department ID 2020-06-15 2020-06-[address] [facility] [id number] 00:00:00 00:00:00 Jim [id number] Ryan [id number] 2020-05-29 2020-05-29 [facility] [id number] 00:00:00 00:00:00 Jim [id number] Ryan [id number] 2020-04-16 2020-04-16 Appointmen [facility] [id number] Univers 08:00:00 08:00:00 t; JUDY ACKERMAN M.D. i ty of [place] KIM M.D. Physici ans 2020-04-14 2020-04-14 [facility] [id number] 00:00:00 00:00:00 Jim [id number] Ryan [id number] 2020-02-24 2020-02-24 Appointmen ELI FULTON Rheumatolog [id number] Univers 13:30:00 13:30:00 t; COCO FULTON y ity of LAUREN, M.D. [place] M.D. Physici ans 2019-11-18 2019-11-18 Appointmen ELI FULTON Rheumatolog [id number] Univers 10:30:00 10:30:00 t; COCO FULTON y ity of LAUREN, M.D. [place] M.D. Physici ans 2019-09-02 2019-09-02 Appointmen [facility] [id number] Univers 11:00:00 11:00:00 t; RANDOLPH KNOWLES ity of VISHNU, M.D. [place] M.D. Physici ans 2019-07-05 2019-07-05 AppointELI Hammer Rheumatolog [id number] Univers 09:00:00 09:00:00 t; Alisa ORLANDO M.D. [place] KATHERINE, Physi ci M.D. ans 2017-07-28 2017-07-28 Appointmen [facility] [id number] Univers 10:45:00 10:45:00 t; WOODY GALICIA ity of FAYYAZ, M.D. [place] M.D. Physici ans Results Test Description Test Time Test Comments Results Result Comments Source [QL] PHOSPHATE ( PHOSPHORUS) 2020-02-24 14:58:00 Test Item Value Reference Range Interpretation Comme nts PHOSPHATE ( PHOSPHORUS) (test code = PHOSPHATE ( 3.3 mg/dl 2 .5-4.5 N [address])) [facility] Physicians[QL] URIC [id number] 14:58:00 Test Item Value Reference Range Interpretation Comments URIC ACID; Normal 7.5 mg/dl 4.0-8.0 N Therapeuti c target for (test code = 3086-6) gout pa tients: <6.0 mg/dL [facility] Physicians[QL] CMP [id number] 14:58:00 Test Item Value Reference Range Interpretation Comments GLUCOSE; Above 122 mg/dl 65-99 Fasting refer ence High Threshold interval For someone (test code = without known 1547-9) diabetes, a glu cose valuebetween 10 0 and 125 mg/dL is consistent withprediabetes and should be confi rmed with afollow-up test. UREA NITROGEN 15 mg/dl 7-25 N (BUN) (test code = UREA NITROGEN (BUN)) CREATININE (test 1.11 mg/dl 0.70-1.33 N For patient s >49 years code = of age, the ref erence CREATININE) limitfor Creati nine is approximately 1 3% higher for peopleidentifie d as -Yanci n. eGFR NON-AFR. 74 {ML/MIN/1.7} > OR = 60 N LUXEMBOURGER (test code = eGFR NON-AFR. LUXEMBOURGER) eGFR 86 {ML/MIN/1.7} > OR = 60 N LUXEMBOURGER (test code = eGFR ) BUN/CREATININE NOT APPLICABLE 6-22 RATIO (test code = BUN/CREATININE RATIO) SODIUM (test code 141 mmol/L 135-146 N = SODIUM) POTASSIUM (test 4.6 mmol/L 3.5-5.3 N code = POTASSIUM) CHLORIDE (test 104 mmol/L 98-110 N code = CHLORIDE) CARBON DIOXIDE 30 mmol/L 20-32 N (test code = CARBON DIOXIDE) CALCIUM (test 9.7 mg/dl 8.6-10.3 N code = CALCIUM) PROTEIN, TOTAL 7.0 g/dl 6.1-8.1 N (test code = PROTEIN, TOTAL) ALBUMIN (test 4.5 g/dl 3.6-5.1 N code = ALBUMIN) GLOBULIN (test 2.5 {G/DL CALC} 1.9-3.7 N code = GLOBULIN) ALBUMIN/GLOBULIN 1.8 {CALC} 1.0-2.5 N RATIO (test code = ALBUMIN/GLOBULIN RATIO) BILIRUBIN, TOTAL; 0.7 mg/dl 0.2-1.2 N Normal (test code = 53359-3) ALKALINE 61 u/l 35-144 N PHOSPHATASE (test code = ALKALINE PHOSPHATASE) AST; Normal (test 26 u/l 10-35 N code = 1916-6) ALT; Normal (test 31 u/l 9-46 N code = 1742-6) [facility] Physicians[QL] CREATINE KINASE, [id number] 14:58:00 Test Item Value Reference Range Interpretation Comments CREATINE KINASE, TOTAL (test code = 107 u/l 44-196 N CREATINE KINASE, TOTAL) [facility][QL] CBC (INCLUDES DIFF/PLT)2020-02-24 14:58:00 Test Item Value Reference Range Interpretation Comments WHITE BLOOD CELL COUNT 7.1 {Thousand/u} 3.8-10.8 N (test code = WHITE BLOOD CELL COUNT) RED BLOOD CELL COUNT (test 4.97 {Million/uL} 4.20-5.80 N code = RED BLOOD CELL COUNT) HEMOGLOBIN; Normal (test 15.7 g/dl 13.2-17.1 N code = 92311-4) HEMATOCRIT; Normal (test 46.8 % 38.5-50.0 N code = 4544-3) MCV; Normal (test code = 94.2 fL 80.0-100.0 N 787-2) MCHC; Normal (test code = 33.5 g/dl 32.0-36.0 N 49828-9) RDW; Normal (test code = 12.1 % 11.0-15.0 N 788-0) PLATELET COUNT; Normal 201 {Thousand/u} 140-400 N (test code = 777-3) MPV; Normal (test code = 12.3 fL 7.5-12.5 N 78627-7) ABSOLUTE NEUTROPHILS (test 4487 {cells/uL} 8463-3520 N code = ABSOLUTE NEUTROPHILS) ABSOLUTE LYMPHOCYTES (test 1825 {cells/uL} 850-3900 N code = ABSOLUTE LYMPHOCYTES) ABSOLUTE MONOCYTES (test 717 {cells/uL} 200-950 N code = ABSOLUTE MONOCYTES) ABSOLUTE EOSINOPHILS (test 50 {cells/uL} 15-500 N code = ABSOLUTE EOSINOPHILS) ABSOLUTE BASOPHILS (test 21 {cells/uL} 0-200 N code = ABSOLUTE BASOPHILS) NEUTROPHILS (test code = 63.2 % N NEUTROPHILS) LYMPHOCYTES (test code = 25.7 % N LYMPHOCYTES) MONOCYTES; Normal (test 10.1 % N code = 59680-7) EOSINOPHILS; Normal (test 0.7 % N code = 34260-5) BASOPHILS; Normal (test 0.3 % N code = 61268-8) [facility] [place] [facility] Physicians[QL] PTH, INTACT (WITHOUT CALCIUM)2020-02-24 14:58:00 Test Item Value Reference Interpretation Comments Range PARATHYROID 101 pg/ml Interpretive Gu alvaro Intact HORMONE, INTACT PTH (test code = Calcium-------- PARATHYROID HORMONE, INTACT) -------Norm al Parathyroid Normal NormalHypoparat hyroidism Low or Low Norm al LowHyperparathy roidism Primary Normal or High High Secondary High Normal or Low Tertiary High HighNon-Parathy roid Hypercalcemia Low or Low Normal High [facility] Physicians[QL] VITAMIN D, 25-HYDROXY, [id number]/[id number] 14:58:00 Test Item Value Reference Range Interpretation Comments VITAMIN 26 ng/ml 30-100 Vitamin D Statu s D,25-OH,TOTAL,IA 25-OH Vitam in D: (test code = VITAMIN Deficie ncy: D,25-OH,TOTAL,IA) <20 ng/mLInsufficie ncy: 20 - 29 ng/mLOptimal: > or = 30 n g/mL For 25-OH Vitamin D testing on patients on D2-supplementat ion and patients for wh om quantitation of D2 and D3 fractions is re quired, the [employer] Impressions D(TM)25-OH VIT D, (D2,D3), LC/MS/MS is recommended: order code 20441 (pat ients >2yrs).See Note 1 Note 1 For additional information, pl ease refer to http://educatio n.[employer]Cloudsnap/fa q/LOB075 (This link is b eing provided for informational/e ducational purposes only.) [facility][QL] CALCIUM, [id number] 14:58:00 Test Item Value Reference Range Interpretation Comments CALCIUM, IONIZED (test code = 5.2 mg/dl 4.8-5.6 N CALCIUM, IONIZED) [facility] [place] [facility] Physicians[QL] CMP [id number] 12:17:00 Test Item Value Reference Range Interpretation Comments GLUCOSE; Above 148 mg/dl 65-99 Fasting refer ence High Threshold interval For someone (test code = without known 1547-9) diabetes, a glucosevalue >1 25 mg/dL indicates that they may havedi abetes and this should be confirmed with afollow-up test . UREA NITROGEN 25 mg/dl 7-25 N (BUN) (test code = UREA NITROGEN (BUN)) CREATININE (test 1.03 mg/dl 0.70-1.33 N For patient s >49 years code = of age, the ref erence CREATININE) limitfor [facility] nine is approximately 1 3% higher for peopleidentifie d as -Yanci n. eGFR NON-AFR. 81 {ML/MIN/1.7} > OR = 60 N LUXEMBOURGER (test code = eGFR NON-AFR. LUXEMBOURGER) eGFR 94 {ML/MIN/1.7} > OR = 60 N LUXEMBOURGER (test code = eGFR ) BUN/CREATININE NOT APPLICABLE 6-22 RATIO (test code = BUN/CREATININE RATIO) SODIUM (test code 139 mmol/L 135-146 N = SODIUM) POTASSIUM (test 4.9 mmol/L 3.5-5.3 N code = POTASSIUM) CHLORIDE (test 102 mmol/L 98-110 N code = CHLORIDE) CARBON DIOXIDE 29 mmol/L 20-32 N (test code = CARBON DIOXIDE) CALCIUM (test 9.5 mg/dl 8.6-10.3 N code = CALCIUM) PROTEIN, TOTAL 7.1 g/dl 6.1-8.1 N (test code = PROTEIN, TOTAL) ALBUMIN (test 4.5 g/dl 3.6-5.1 N code = ALBUMIN) GLOBULIN (test 2.6 {G/DL CALC} 1.9-3.7 N code = GLOBULIN) ALBUMIN/GLOBULIN 1.7 {CALC} 1.0-2.5 N RATIO (test code = ALBUMIN/GLOBULIN RATIO) BILIRUBIN, TOTAL; 0.5 mg/dl 0.2-1.2 N Normal (test code = 42774-1) ALKALINE 71 u/l 35-144 N PHOSPHATASE (test code = ALKALINE PHOSPHATASE) AST; Normal (test 15 u/l 10-35 N code = 1916-6) ALT; Normal (test 18 u/l 9-46 N code = 1742-6) [facility][QL] PTH, INTACT (WITHOUT CALCIUM)2019-11-18 12:17:00 Test Item Value Reference Range Interpretation Comments PARATHYROID 74 pg/ml 14-64 Interpretive Gu alvaro Intact HORMONE, INTACT PTH (test code = Calcium-------- PARATHYROID HORMONE, INTACT) -------Norm al Parathyroid Normal NormalHypoparat hyroidism Low or Low Norm al LowHyperparathy roidism Primary Normal or High High Secondary High Normal or Low Tertiary High HighNon-Parathy roid Hypercalcemia Low or Low Normal High [facility][QL] VITAMIN D, 25-HYDROXY, LC/MS/[id number] 12:17:00 Test Item Value Reference Range Interpretation Comments VITAMIN 12 ng/ml 30-100 Vitamin D Statu s D,25-OH,TOTAL,IA 25-OH Vitam in D: (test code = VITAMIN Deficie ncy: D,25-OH,TOTAL,IA) <20 ng/mLInsufficie ncy: 20 - 29 ng/mLOptimal: > or = 30 n g/mL For 25-OH Vitamin D testing on patients on D2-supplementat ion and patients for wh om quantitation of D2 and D3 fractions is re quired, the [employer] D(TM)25-OH VIT D, (D2,D3), LC/MS/MS is recommended: order code 86619 (pat ients >2yrs).See Note 1 Note 1 For additional information, pl ease refer to http://educatio nBackchat/fa q/ICH741 (This link is b eing provided for informational/e ducational purposes only.) [facility][QL] CALCIUM, [id number] 12:17:00 Test Item Value Reference Range Interpretation Comments CALCIUM, IONIZED (test code = 5.0 mg/dl 4.8-5.6 N CALCIUM, IONIZED) [facility][Q] IRON, TIBC AND FERRITIN [id number] 08:59:00 Test Item Value Reference Range Interpretation Comments IRON, TOTAL (test code = 58 {mcg/dl} 50-180 N IRON, TOTAL) IRON BINDING CAPACITY (test 342 {mcg/dL ca} 250-425 N code = IRON BINDING CAPACITY) % SATURATION (test code = % 17 {% CALC} 20-48 SATURATION) FERRITIN (test code = 237 ng/ml 38-380 N FERR[address]) [facility][Q] PTH, INTACT AND [id number] 08:59:00 Test Item Value Reference Interpretation Comments Range CALCIUM (test 9.9 mg/dl 8.6-10.3 N code = CALCIUM) PARATHYROID 122 pg/ml 14-64 Interpretive Gu alvaro Intact HORMONE, INTACT PTH (test code = Calcium-------- PARATHYROID HORMONE, INTACT) -------Norm al Parathyroid Normal NormalHypoparat hyroidism Low or Low Norm al LowHyperparathy roidism Primary Normal or High High Secondary High Normal or Low Tertiary High HighNon-Parathy roid Hypercalcemia Low or Low Normal High [facility][QL] [id number] 08:59:00 Test Item Value Reference Range Interpretation Comments MAGNESIUM (test code = MAGNESIUM) 2.2 mg/dl 1.5-2.5 N [facility][QL] PHOSPHATE ( PHOSPHORUS)2019-09-19 08:59:00 Test Item Value Reference Range Interpretation Comments PHOSPHATE ( PHOSPHORUS) (test 4.2 mg/dl 2.5-4.5 N code = PHOSPHATE ( PHOSPHORUS)) [facility][QL] TSH, 3RD GENERATION W/REFLEX TO [id number] 08:59:00 Test Item Value Reference Range Interpretation Comments TSH, 3RD GENERATION W/REFLEX TO 6.25 {MIU/L} 0.40-4.50 FT4 (test code = TSH, 3RD GENERATION W/REFLEX TO FT4) [facility][QL] T4, [id number] 08:59:00 Test Item Value Reference Range Interpretation Comments T4, FREE (test code = T4, FREE) 1.3 ng/dl 0.8-1.[address] [facility][QL] HLA-B27, DNA [id number] 08:59:00 Test Item Value Reference Range Interpretation Comments HLA-B27 (test code Negative Negative = HLA-B27) RESULTS REVIEWED see note Kayla wells, BY: (test code = Ph.D., FACM GTechnical RESULTS REVIEWED Director, Octaviano noland BY:) Oncology The B2 7 allele group of the HL A-B locus is presentin 2 to 9% of the general populat ion. About 20% ofHLA-B27 c arriers develop autoimm une disordersinclud ing Ankylosing Spon dylitis (), ReactiveA rthritis, Psoriatic Arthr itis, Undifferentiate dOligoarthri tis, Uveitis, o r Inflammatory Evan welDisease. The highest ass ociation is with , wherea pproximately 95% of patie nts are HLA-B27 positiv e.Genetic counseling as n eeded. Typing performe d by PCR and hybridization w ith sequencespecifi c oligonucleotide probes (SSO) using the FDA-cleared LABType(R) SSO Kit. 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 Line narrowing ofall DIP joints are pres ent in both hands. No central or peripheral e rosions areidentified.T he remainder of th e joints in the hand and wrist are within norm al limits. Noperio stitis or erosive changes present.Minimal soft tissue swelling at the DIP joints of b ilateral hands.IMPRESSIO N: Primary osteoar thritis of bilateral martines nds without significanteros jr changes.--Read by: Sammy Ramirez MDDictated Date /time: 09/02/19 16:39Electronic ally Signed by: Kristen Chavez MD 6:49FINAL REPORT [facility] Hand AP lateral oblique Bilateral [id number] 2019-09-02 14:44:00 Test Item Value Reference Range Interpretation Comments Hand AP lateral SEE NOTESSEE Addendum:Sub sequent oblique NOTES clinical discus sury, a Bilateral (test secondary re view code = Hand AP demonstrates minimal lateral oblique verysubtle Bilateral) chondrocalcinos is along the proximal ca rpal joint capsular region.Appearan bg are concerning for CPPD/gout.The c linical team is aware.- -Read by: Kyle Ramirez MDDictated Date /time: 09/04/19 08:15Electronic ally Signed by: Kristen Chavez MD 8:16FINAL REPORTEXAM: XR BILATERAL HAND 3 VIEWSEXA M: X-RAY BILATERAL WRIST 3 VIEWSDATE: 2019 14:37 CDTINDICA TION: - M13.0 Polyart hritis, unspecified painCOMPARISON: NoneTECHNIQUE: PA, lateral and obl ique radiographs of the bilateral hands.FINDINGS: No acute fracture or mal alignment is identified. Line narrowing ofall DIP joints are pres ent in both hands. No central or peripheral e rosions areidentified.T he remainder of th e joints in the hand and wrist are within norm al limits. Noperio stitis or erosive changes present.Minimal soft tissue swelling at the DIP joints of b ilateral hands.IMPRESSIO N: Primary osteoar thritis of bilateral martines nds without significanteros jr changes.--Read by: Sammy Ramirez MDDictated Date /time: 09/02/19 16:39Electronic ally Signed by: Kristen Chavez MD 6:49FINAL REPORT [facility] Sacroiliac joints series [id number] 14:44:00 Test Item Value Reference Range Interpretation Comments Sacroiliac joints SEE NOTESSEE Addendum:S ubsequent series (test code NOTES clinical d iscussion, = Sacroiliac it is likely th at joints series) the small foc al area ofsclerotic aman nges of the left mid sacral joint ar e concerning for CPPD/gout.The clinical team i s aware.--Read by : Sammy Ramirez MDDictated Date/time: 06/20 08:16Electronic ally Signed by: Sammy Ramirez MD 09/04/2007:18F INAL REPORTEXAM: XR SACROILIAC JOIN T 3 VIEWSDATE: 2019 14:39 CDTINDICA TION: - M13.0 Polyarthritis, unspecifiedCOMP ARISO N: NoneTECHNIQU E: AP, RPO and LPO radiographs of the sacroiliac jointsFINDINGS: The sacroiliac join t widths are well preserved. No sclerotic aquino eseen involving the l eft sacroiliac join t and the mid third region.No erosi ve disease is identified. No soft tissue abnormal ity is identified.IMPR ESSIO N: No acute abnormality. Th e most focal area of sclerosis seeninvolving t he left mid third region of the s acral joint. No erosi ve changes arepresent..--R ead by: Kristen Ramirez MDDict ated Date/time: 04/22 17:01Electronic ally Signed by: Sammy Ramirez MD 09/01/2016:06F INAL REPORT [facility] Elbow AP and Lat Bilateral [id number] 14:44:00EXAM: XR BILATERAL ELBOW 2 VIEWSDATE: 09/02/2019 14:38 CDTINDICATION: - M13.0 Polyarthritis, unspecifiedCOMPARISON: None availableTECHNIQUE: AP and lateral radiographs of the elbowLaterality: BilateralFINDINGS: No acute fracture or malalignment is identified.Suture anchor is seen in the lateral epic ondyle.There is diffuse soft tissue thickening along the lateral aspect of the jointline with small ill-defined soft tissue calcification is present. There is noexcessive joint fluid. Alignment joint space and normal limits.Small enthesophyte at the olecranon attachment.IMPRESSION: * Calcification atthe common extensor origin likely represents old lateralepicondylitis.* Soft tissue swelling with some calcification along the lateral jointline:This is likely to represent postoperative soft tissue calcification and lesslikely to represent CPPD/gout. No classic symptoms of gout identified. Nosignificant olecranon bursitis..* Suture anchor in the lateral epicondyle.--Read by: Kristen Ramirez MDDictated Date/time: 09/02/19 16:49Electronically Signed by: Kristen Ramirez MD 09/02/2015:53FINAL REPORTSt. [facility] Foot 2 Views Bilateral [id number] 14:44:00EXAM: XR BILATERAL ANKLE 2 VIEWSEXAM: X-RAY BILATERAL FEET 3 VIEWS.DATE: 09/02/2019 14:39 CDTINDICATION: - M13.0 Polyarthritis, unspecifiedCOMPARISON: None availableTECHNIQUE: AP and lateral radiographs of the bilateral ankles and bilateralfeetFINDINGS: Prior lateral malleolar fixation of the left ankle is identified.Evidence of surgery to the right hallux is also noted.No erosive disease is identified.There is minimal joint space reduction of the intertarsal joints. No acutefracture or malalignment is identified.No soft tissue abnormality is identified.IMPRESSION: No acute abnormality. No radiographic evidence of polyarticularinflammatory arthropathy. Minimal intertarsal and tarsometatarsal degenerativechanges.--Read by: Kristen Ramirez MDDictated Date/time: 09/02/19 16:53Electronically Signed by: Kristen Ramirez MD 09/02/2015:57FINAL REPORT [facility] Ankle 2 views bilateral [id number] 14:44:00EXAM: XR BILATERAL ANKLE 2 VIEWSEXAM: X-RAY BILATERAL FEET 3 VIEWS.DATE: 09/02/2019 14:39 CDTINDICATION: - M13.0 Polyarthritis, unspecifiedCOMPARISON: None availableTECHNIQUE: AP and lateral radiographs of the bilateral ankles and bilateralfeetFINDINGS: Prior lateral malleolar fixation of the left ankle is identified.Evidence of surgery to the right hallux is also noted.No erosive disease is identified.There is minimal joint space reduction of the intertarsal joints. No acutefracture or malalignment is identified.No soft tissue abnormality is identified.IMPRESSION: No acute abnormality. No radiographic evidence of polyarticularinflammatory arthropathy. Minimal intertarsal and tarsometatarsal degenerativechanges.--Read by: Kristen Ramirez MDDictated Date/time: 09/02/19 16:53ElectronicallySigned by: Kristen Ramirez MD 09/02/2015:57FINAL REPORTUnHigh[facility] Spine lumbar AP lateral [id number] 14:44:00EXAM: XR Spine lumbar 2 or 3 views DXDATE: 09/02/2019 14:39 CDTINDICATION: - M13.0 Polyarthritis, unspecified Pain.COMPARISON: None availableTECHNIQUE: Two-view projections of lumbar spine.DISCUSSION: Degenerative changes are seen at the L5/S1 levels with significantloss of disc space. Multilevel facet hypertrophic changes are present. Nosoft tissue abnormality is identified..IMPRESSION:* Noacute abnormality. * Disc degenerative changes at L5/S1.* Facet hypertrophic changes.* No radiographic evidence of polyarticular inflammatory arthropathy. Noevidence of enthesitis.--Read by: Kristen Ramirez MDDictated Date/time: 09/02/19 16:58Electronically Signed by: Kristen Ramirez MD 09/01/2016:01FINAL REPORTUnHighland Ridge Hospital [facility][QL] URIC [id number] 12:39:00 Test Item Value Reference Range Interpretation Comments URIC ACID; Normal 7.2 mg/dl 4.0-8.0 N Therapeuti c target for (test code = 3086-6) gout pa tients: <6.0 mg/dL [facility][QL] CMP [id number] 12:39:00 Test Item Value Reference Range Interpretation Comments GLUCOSE; Normal 105 mg/dl 65-139 N Non-fasting reference (test code = interval 1547-9) UREA NITROGEN 14 mg/dl 7-25 N (BUN) (test code = UREA NITROGEN (BUN)) CREATININE (test 1.11 mg/dl 0.70-1.33 N For patient s >49 years code = of age, the ref erence CREATININE) limitfor Creati nine is approximately 1 3% higher for peopleidentifie d as -Yanci n. eGFR NON-AFR. 74 {ML/MIN/1.7} > OR = 60 N LUXEMBOURGER (test code = eGFR NON-AFR. LUXEMBOURGER) eGFR 86 {ML/MIN/1.7} > OR = 60 N LUXEMBOURGER (test code = eGFR ) BUN/CREATININE NOT APPLICABLE 6-22 RATIO (test code = BUN/CREATININE RATIO) SODIUM (test code 143 mmol/L 135-146 N = SODIUM) POTASSIUM (test 4.1 mmol/L 3.5-5.3 N code = POTASSIUM) CHLORIDE (test 101 mmol/L 98-110 N code = CHLORIDE) CARBON DIOXIDE 34 mmol/L 20-32 (test code = CARBON DIOXIDE) CALCIUM (test 9.3 mg/dl 8.6-10.3 N code = CALCIUM) PROTEIN, TOTAL 6.9 g/dl 6.1-8.1 N (test code = PROTEIN, TOTAL) ALBUMIN (test 4.2 g/dl 3.6-5.1 N code = ALBUMIN) GLOBULIN (test 2.7 {G/DL CALC} 1.9-3.7 N code = GLOBULIN) ALBUMIN/GLOBULIN 1.6 {CALC} 1.0-2.5 N RATIO (test code = ALBUMIN/GLOBULIN RATIO) BILIRUBIN, TOTAL; 0.5 mg/dl 0.2-1.2 N Normal (test code = 47953-5) ALKALINE 57 u/l 35-144 N PHOSPHATASE (test code = ALKALINE PHOSPHATASE) AST; Normal (test 18 u/l 10-35 N code = 1916-6) ALT; Normal (test 18 u/l 9-46 N code = 1742-6) [facility][QL] SED RATE BY MODIFIED [id number] 12:39:00 Test Item Value Reference Range Interpretation Comments SED RATE BY ROSETTA DICKENS (test 2 mm/h < OR = 20 N code = SED RATE BY ROSETTA DICKENS) [facility][QL] CBC (INCLUDES DIFF/PLT)2019-09-02 12:39:00 Test Item Value Reference Range Interpretation Comments WHITE BLOOD CELL COUNT 5.6 {Thousand/u} 3.8-10.8 N (test code = WHITE BLOOD CELL COUNT) RED BLOOD CELL COUNT (test 4.71 {Million/uL} 4.20-5.80 N code = RED BLOOD CELL COUNT) HEMOGLOBIN; Normal (test 15.0 g/dl 13.2-17.1 N code = 01615-9) HEMATOCRIT; Normal (test 44.3 % 38.5-50.0 N code = 4544-3) MCV; Normal (test code = 94.1 fL 80.0-100.0 N 787-2) MCHC; Normal (test code = 33.9 g/dl 32.0-36.0 N 05196-4) RDW; Normal (test code = 12.5 % 11.0-15.0 N 788-0) PLATELET COUNT; Normal 178 {Thousand/u} 140-400 N (test code = 777-3) MPV; Normal (test code = 12.0 fL 7.5-12.5 N 55933-5) ABSOLUTE NEUTROPHILS (test 3282 {cells/uL} 1397-4928 N code = ABSOLUTE NEUTROPHILS) ABSOLUTE LYMPHOCYTES (test 1607 {cells/uL} 850-3900 N code = ABSOLUTE LYMPHOCYTES) ABSOLUTE MONOCYTES (test 622 {cells/uL} 200-950 N code = ABSOLUTE MONOCYTES) ABSOLUTE EOSINOPHILS (test 62 {cells/uL} 15-500 N code = ABSOLUTE EOSINOPHILS) ABSOLUTE BASOPHILS (test 28 {cells/uL} 0-200 N code = ABSOLUTE BASOPHILS) NEUTROPHILS (test code = 58.6 % N NEUTROPHILS) LYMPHOCYTES (test code = 28.7 % N LYMPHOCYTES) MONOCYTES; Normal (test 11.1 % N code = 85882-3) EOSINOPHILS; Normal (test 1.1 % N code = 56849-6) BASOPHILS; Normal (test 0.5 % N code = 06757-0) [facility][Q] CYCLIC CITRULLINATED PEPTIDE (CCP) AB (IGG) 2019-09-02 12:39:00 Test Item Value Reference Range Interpretation Comments CYCLIC CITRULLINATED <16 N Referen ce PEPTIDE (CCP) AB (IGG) Range Negative: (test code = CYCLIC <20We ak Positive: CITRULLINATED PEPTIDE 20 -39Moderate (CCP) AB (IGG)) Positive: 40-59Strong Pos itive: >59 [facility][QL] RHEUMATOID [id number] 12:39:00 Test Item Value Reference Range Interpretation Comments RHEUMATOID FACTOR (test code = <14 <14 N RHEUMATOID FACTOR) [facility][QL] C-REACTIVE [id number] 12:39:00 Test Item Value Reference Range Interpretation Comments C-REACTIVE PROTEIN (test code = 2.6 mg/L <8.0 N C-REACTIVE PROTEIN) [facility] [id number] 06:15:00 Test Item Value Reference Range Interpretation Comments SODIUM (BEAKER) 139 meq/L 136-145 (test code = 381) POTASSIUM (BEAKER) 4.0 meq/L 3.5-5.1 (test code = 379) CHLORIDE (BEAKER) 107 meq/L 98-107 (test code = 382) CO2 (BEAKER) (test 27 meq/L 22-29 code = 355) BLOOD UREA NITROGEN 16 mg/dL 7-21 (BEAKER) (test code = 354) CREATININE (BEAKER) 1.06 mg/dL 0.57-1.25 (test code = 358) GLUCOSE RANDOM 106 mg/dL 70-105 H (BEAKER) (test code = 652) CALCIUM (BEAKER) 8.8 mg/dL 8.4-10.2 (test code = 697) EGFR (BEAKER) (test 73 mL/min/1.73 ESTIMA MARCEL GFR IS code = 1092) sq m NOT ACCURATE CREATININE CLEARANCE IN PREDICTING GLOMERULAR FILTRATION RATE . ESTIMATED GFR I S NOT APPLICABLE FOR DIALYSIS PATIEN TS. CBC (HEMOGRAM ONLY)2019-03-04 05:59:00 Test Item Value Reference Range Interpretation Comments WHITE BLOOD CELL COUNT (BEAKER) 5.8 K/ L 3.5-10.5 (test code = 775) RED BLOOD CELL COUNT (BEAKER) 4.18 M/ L 4.63-6.08 L (test code = 761) HEMOGLOBIN (BEAKER) (test code = 13.3 GM/DL 13.7-17.5 L 410) HEMATOCRIT (BEAKER) (test code = 40.3 % 40.1-51.0 411) MEAN CORPUSCULAR VOLUME (BEAKER) 96.4 fL 79.0-92.2 H (test code = 753) MEAN CORPUSCULAR HEMOGLOBIN 31.8 pg 25.7-32.2 (BEAKER) (test code = 751) MEAN CORPUSCULAR HEMOGLOBIN CONC 33.0 GM/DL 32.3-36.5 (BEAKER) (test code = 752) RED CELL DISTRIBUTION WIDTH 13.4 % 11.6-14.4 (BEAKER) (test code = 412) PLATELET COUNT (BEAKER) (test 157 K/CU MM 150-450 code = 756) MEAN PLATELET VOLUME (BEAKER) 11.6 fL 9.4-12.4 (test code = 754) NUCLEATED RED BLOOD CELLS 0 /100 WBC 0-0 (BEAKER) (test code = 413)
[2020-06-23] MEDS ORDERED: AZITHROMYCIN 500 MG INJ IVPB ONE (07:05)
[2020-06-23] MEDS ORDERED: NA CHLORIDE 0.9% 250 ML ONE (07:05)
[2020-06-23] MEDS ORDERED: NA CHLORIDE 0.9% 1,000 ML ONE (07:06)
[2020-06-23 07:19] LABS: Absolute Lymphocytes (CBC) 0.7 K/uL (0.7-4.9); Basophils % 0.2 % (0-1.3); Hematocrit 51.3 % (39.6-49.0); Lymphocytes % 3.5 % (15.3-44.8); MPV 11.5 fL (7.6-11.3); RBC Red Blood Cell Count 5.47 M/uL (4.33-5.43)
[2020-06-23 07:35] LABS: Albumin 3.2 g/dL (3.4-5.0); Bilirubin Direct 0.3 mg/dL (0-0.2); Bilirubin Total 0.9 mg/dL (0.2-1.0); Potassium 5.2 mmol/L (3.5-5.1); Protein, Total 7.6 g/dL (6.4-8.2); Troponin (Emerg Dept Use Only) 0.19 ng/mL (0.0-0.045)
--- NOTE | 2020-06-23 08:09 | RAD REPORT ---
EXAM DESCRIPTION: RAD - Chest Single View - 06/23/2020 7:51 am CLINICAL HISTORY: CONGESTION, positive COVID test recently performed COMPARISON: Chest view March 26, 2019 TECHNIQUE: AP portable chest image was obtained 06/23/2020 7:51 am . FINDINGS: Focal infiltrates seen lateral right lung base. Hazy opacification retrocardiac left base could be additional infiltrate. Pattern is nonspecific. COVID-19 pneumonia is possible given the hist ory ; however, non COVID pneumonia can have an identical presentation. No failure or volume overload. Defibrillator is in place. Heart and vasculature are normal. No measur able pleural effusion and no pneumothorax. No acute bony abnormality seen. No acute aortic findings s uspected. IMPRESSION: Lateral right base small infiltrate with questionable retrocardiac left base infiltrate. This is a pneumonia pattern but nonspecific for COVID or non COVID pneumonia.
[2020-06-23] MEDS ORDERED: INSULIN -REGULAR HUMAN 50 UNIT/0.5 ML ML ONE ×3 (08:14→17:05)
[2020-06-23 08:19] LABS: Protime INR 1.19
--- NOTE | 2020-06-23 08:41 | ER ---
Nurse's Notes [facility] Name: Terry Burns Age: 55 yrs Sex: Male : 1965 Arrival Date: 06/23/2020 Time: 06:34 Bed 8 Private MD: Diagnosis: Coronavirus infection, unspecified;Pneumonia, unspecified organism-Bilateral;Hypoxemia Presentation: 06/23 06:35 Chief complaint: EMS states: Pt was positive for Covid a week ago. Pt C/O SOB, chest wh tightness when breathing and back pain. Coronavirus screen: Client denies travel out of the [place] in the last 14 days. difficulty breathing, shortness of breath, Client presents with at least one sign or symptom that may indicate coronavirus-19. Client reports previous positive COVID test result. Ebola Screen: Patient negative for fever greater than or equal to 101.5 degrees Fahrenheit, and additional compatible Ebola Virus Disease symptoms Patient denies exposure to infectious person. Initial Sepsis Screen: Does the patient meet any 2 criteria? RR > 20 per min. HR > 90 bpm. Does the patient have a suspected source of infection? Yes: Other: Covid. Risk Assessment: Do you want to hurt yourself or someone else? Patient reports no desire to harm self or others. Onset of symptoms was June 23, 2020. Care prior to arrival: Medication(s) given: Tylenol, 1000 mg, Solu Medrol 125mg IV initiated. 20 GA, in the right forearm, Oxygen administered. via a non-rebreather mask. 06:35 Method Of Arrival: EMS: [facility] 06:35 Acuity: NIRAJ 3 Triage Assessment: 06:44 Respiratory: Onset: The symptoms/episode began/occurred gradually, the patient has mild shortness of breath. Historical: - Allergies: 06:41 NKDA; - PMHx: 06:41 arthralgias; CAD; CHF; Chronic pain; CONSTIPATION - CHRONIC; Depression; Diabetes - NIDDM; fatigue; Gout; Hyperlipidemia; Hypertension; insomnia; Irregular heart rate; low back pain; muscle spasms; Pacemaker; PERIPHERAL NEUROPATHY; wrist sprain; ADD/ADHD; - PSHx: 11:01 Vasectomy; VSD repair; pacemaker/defibtrilator; back; neck; tw2 - Immunization history:: Adult Immunizations not up to date. - Social history:: Smoking status: Patient/guardian denies using. - Family history:: not pertinent. Screenin:43 Abuse screen: Denies threats or abuse. Denies injuries from another. Nutritional wh screening: No deficits noted. Tuberculosis screening: No symptoms or risk factors identified. Fall Risk None identified. Assessment: 06:43 General: Appears distressed, Behavior is calm, cooperative, appropriate for age. Pain: wh Complains of pain in back. Neuro: Level of Consciousness is awake, alert, obeys commands, Oriented to person, place, time, situation, Appropriate for age. Cardiovascular: Heart tones S1 S2 Rhythm is regular. Respiratory: Reports shortness of breath labored breathing Airway is patent Respiratory effort is labored, Respiratory pattern is tachypnea Breath sounds with wheezes. GI: Abdomen is flat, non-distended. : No signs and/or symptoms were reported regarding the genitourinary system. EENT: No signs and/or symptoms were reported regarding the EENT system. Derm: Skin is intact, is healthy with good turgor, Skin is pink, warm \T\ dry. normal. Musculoskeletal: Circulation, motion, and sensation intact. 07:45 Reassessment: Patient appears in no apparent distress at this time. Patient and/or tw2 family updated on plan of care and expected duration. Pain level reassessed. Patient is alert, oriented x 3, equal unlabored respirations, skin warm/dry/pink. 08:45 Reassessment: Patient appears in no apparent distress at this time. Patient and/or tw2 family updated on plan of care and expected duration. Pain level reassessed. Patient is alert, oriented x 3, equal unlabored respirations, skin warm/dry/pink. 09:45 Reassessment: Patient appears in no apparent distress at this time. Patient and/or tw2 family updated on plan of care and expected duration. Pain level reassessed. Patient is alert, oriented x 3, equal unlabored respirations, skin warm/dry/pink. Vital Signs: 06:35 BP 145 / 96; Pulse 97; Resp 24; Temp 99.8; Pulse Ox 98% on 15% Non-rebreather mask; wh Weight 89.81 kg; Height 6 ft. 0 in. (182.88 cm); 07:30 BP 115 / 79; Pulse 70; Resp 21; Pulse Ox 94% on BiPAP; tw2 08:30 BP 105 / 79; Pulse 79; Resp 22; Pulse Ox 98% on BiPAP; tw2 09:25 BP 141 / 101; Pulse 72; Resp 21; Pulse Ox 92% on 98% BiPAP; tw2 06:35 Body Mass Index 26.85 (89.81 kg, 182.88 cm) ED Course: 06:34 Patient arrived in ED. wh 06:40 Triage completed. wh 06:40 Vita Watkins MD is Attending Physician. ma2 06:44 Arm band placed on right wrist. wh 06:44 Patient has correct armband on for positive identification. Placed in gown. Bed in low wh position. Call light in reach. Side rails up X 1. threat monitoring analyst on. Pulse ox on. NIBP on. 06:47 Ricky Uribe, BEVERLY is Primary Nurse. mg2 07:23 Attending Physician role handed off by Vita Watkins MD rn 07:23 Scooter De La Torre MD is Attending Physician. rn 07:24 Primary Nurse role handed off by Ricky Uribe, BEVERLY tw2 07:24 Marlene Galvez, BEVERLY is Primary Nurse. tw2 07:49 Chest Single View XRAY In Process Unspecified. EDMS 08:40 Toribio Israel is Hospitalizing Provider. rn 09:00 No provider procedures requiring assistance completed. Patient admitted, IV remains in sv place. intact. 10:26 BIPAP Sent. sv 10:26 Amylase, Serum Sent. sv 10:26 Basic Metabolic Panel Sent. sv 10:26 Blood Culture Adult (2) Sent. sv 10:26 CBC with Diff Sent. sv 10:26 Ckmb Sent. sv 10:26 CPK Sent. sv 10:26 Lactate Sent. sv 10:26 LFT's Sent. sv 10:26 Lipase Sent. sv 10:27 Procalcitonin Sent. sv 10:27 Protime (+inr) Sent. sv Administered Medications: 06:56 Drug: AZITHromycin 500 mg Route: IVPB; Infused Over: 1 hrs; Site: left forearm; 07:56 Follow up: Response: No adverse reaction; IV Status: Completed infusion; IV Intake: tw2 250ml 06:56 Not Given (Physician Discretion): SOLU-Medrol 125 mg IVP once 06:57 Not Given (Physician Discretion): NS 0.9% 1000 ml IV at 125 ml/hr continuous 06:57 Drug: NS 0.9% 1000 ml Route: IV; Rate: 50 ml/hr; Site: left forearm; 16:38 Follow up: Response: No adverse reaction; IV Status: Infusion continued upon admission tw2 08:00 Drug: Insulin Regular Human 10 units {Co-Signature: sv (Rosalie Wilhelm RN).} Route: tw2 Sub-Q; Site: right upper arm; 15:48 Follow up: Response: No adverse reaction; Blood sugar is lowered; Blood sugar is tw2 lowered, see [facility] 10:06 Drug: Tylenol 1000 mg Route: PO; tw2 15:48 Follow up: Response: No adverse reaction tw2 Intake: 07:56 IV: 250ml; Total: 250ml. tw2 Outcome: 08:40 Decision to Hospitalize by Provider. rn 09:00 Admitted to ER Hold. Please see [facility] for further documentation. sv 09:00 Condition: stable 09:00 Instructed on the need for admit. 09:26 Patient left the ED. tw2 17:44 Patient left the ED. tw2 Signatures: Dispatcher [employer] Rosalie Cramer RN RN sv Nieto, Roman, MD MD rn Wise, Tara, RN RN 2 Natalee Reilly RN RN wh Alzahri, Mohammad, MD MD [facility] Ricky Uribe RN RN [facility] Rosalie frankel Corrections: (The following items were deleted from the chart) 16:40 10:09 Reassessment: Patient appears in no apparent distress at this time. Patient tw2 and/or family updated on plan of care and expected duration. Pain level reassessed. Patient is alert, oriented x 3, equal unlabored respirations, skin warm/dry/pink. Patient states feeling better. tw2
--- NOTE | 2020-06-23 08:41 | EDPHYS ---
Physician Documentation [facility] Name: Terry Burns Age: 55 yrs Sex: Male : 1965 Arrival Date: 06/23/2020 Time: 06:34 Bed 8 Private MD: ED Physician Scooter De La Torre HPI: 06/23 06:41 This 55 yrs old Male presents to ER via EMS with complaints of Shortness Of ma2 Breath. 06:41 The patient has shortness of breath with light activity. Onset: The symptoms/episode ma2 began/occurred gradually, 1 week(s) ago. Associated signs and symptoms: Pertinent negatives: non-productive cough, dizziness, loss of consciousness, numbness in extremities. Severity of symptoms: At their worst the symptoms were moderate in the emergency department the symptoms are unchanged. The patient has not experienced similar symptoms in the past. Historical: - Allergies: 06:41 NKDA; wh - PMHx: 06:41 arthralgias; CAD; CHF; Chronic pain; CONSTIPATION - CHRONIC; Depression; Diabetes - NIDDM; fatigue; Gout; Hyperlipidemia; Hypertension; insomnia; Irregular heart rate; low back pain; muscle spasms; Pacemaker; PERIPHERAL NEUROPATHY; wrist sprain; ADD/ADHD; - PSHx: 11:01 Vasectomy; VSD repair; pacemaker/defibtrilator; back; neck; tw2 - Immunization history:: Adult Immunizations not up to date. - Social history:: Smoking status: Patient/guardian denies using. - Family history:: not pertinent. ROS: 06:41 Constitutional: Negative for fever, chills, and weight loss. ma2 06:41 All other systems are negative. Exam: 06:41 Constitutional: This is a well developed, well nourished patient who is awake, alert, ma2 and in no acute distress. ENT: Nares patent. No nasal discharge, no septal abnormalities noted. Tympanic membranes are normal and external auditory canals are clear. Oropharynx with no redness, swelling, or masses, exudates, or evidence of obstruction, uvula midline. Mucous membranes moist. Neck: Trachea midline, no thyromegaly or masses palpated, and no cervical lymphadenopathy. Supple, full range of motion without nuchal rigidity, or vertebral point tenderness. No Meningismus. Chest/axilla: Normal chest wall appearance and motion. Nontender with no deformity. No lesions are appreciated. Cardiovascular: Regular rate and rhythm with a normal S1 and S2. No gallops, murmurs, or rubs. Normal PMI, no JVD. No pulse deficits. Respiratory: Lungs have equal breath sounds bilaterally, clear to auscultation and percussion. No rales, rhonchi or wheezes noted. No increased work of breathing, no retractions or nasal flaring. Abdomen/GI: Soft, non-tender, with normal bowel sounds. No distension or tympany. No guarding or rebound. No evidence of tenderness throughout. Back: No spinal tenderness. No costovertebral tenderness. Full range of motion. Skin: Warm, dry with normal turgor. Normal color with no rashes, no lesions, and no evidence of cellulitis. MS/ Extremity: Pulses equal, no cyanosis. Neurovascular intact. Full, normal range of motion. Neuro: Awake and alert, GCS 15, oriented to person, place, time, and situation. Cranial nerves II-XII grossly intact. Motor strength 5/5 in all extremities. Sensory grossly intact. Cerebellar exam normal. Normal gait. Vital Signs: 06:35 BP 145 / 96; Pulse 97; Resp 24; Temp 99.8; Pulse Ox 98% on 15% Non-rebreather mask; Weight 89.81 kg; Height 6 ft. 0 in. (182.88 cm); 07:30 BP 115 / 79; Pulse 70; Resp 21; Pulse Ox 94% on BiPAP; tw2 08:30 BP 105 / 79; Pulse 79; Resp 22; Pulse Ox 98% on BiPAP; tw2 09:25 BP 141 / 101; Pulse 72; Resp 21; Pulse Ox 92% on 98% BiPAP; tw2 06:35 Body Mass Index 26.85 (89.81 kg, 182.88 cm) wh MDM: 06:40 Patient medically screened. ma2 06:41 Differential diagnosis: Anemia asthma, Bronchitis pneumonia, reactive airway disease. ma2 07:23 ED course: Signed out ot me by Dr. Watkins, pending likely admission for worsening rn COVID pneumonia. Improved on bipap. . 08:39 Data reviewed: vital signs, nurses notes, lab test result(s), EKG, radiologic studies, rn plain films, and as a result, I will admit patient. Counseling: I had a detailed discussion with the patient and/or guardian regarding: the historical points, exam findings, and any diagnostic results supporting the discharge/admit diagnosis, lab results, radiology results, the need for further work-up and treatment in the hospital. Admission orders: after a detailed discussion of the patient's condition and case, the admit orders are written by me. 06/23 06:41 Order name: Amylase, Serum [facility] 06/23 06:41 Order name: Basic Metabolic Panel [facility] 06/23 06:41 Order name: Blood Culture Adult (2) [facility] 06/23 06:41 Order name: CBC with Diff [facility] 06/23 06:41 Order name: Ckmb [facility] 06/23 06:41 Order name: CPK [facility] 06/23 06:41 Order name: Lactate [facility] 06/23 06:41 Order name: LFT's [facility] 06/23 06:41 Order name: Lipase [facility] 06/23 06:41 Order name: Procalcitonin [facility] 06/23 06:41 Order name: Protime (+inr) [facility] 06/23 06:41 Order name: Ptt, Activated; Complete Time: 08:46 [facility] 06/23 06:41 Order name: Troponin (emerg Dept Use Only); Complete Time: 07:44 [facility] 06/23 06:41 Order name: Urine Microscopic Only ak06/23 06:42 Order name: Amylase; Complete Time: 07:44 EDMS 06/23 06:42 Order name: Basic Metabolic Panel; Complete Time: 07:44 EDMS 06/23 06:42 Order name: Blood Culture [facility] 06/23 06:42 Order name: CBC with Automated Diff; Complete Time: 07:44 06/23 06:42 Order name: CKMB Creatine Kinase MB; Complete Time: 07:44 EDMS 06/23 06:42 Order name: Creatine Phosphokinase; Complete Time: 07:44 EDMS 06/23 06:42 Order name: Lactate; Complete Time: 08:46 MS 06/23 06:42 Order name: Liver (Hepatic) Function; Complete Time: 07:44 MS 06/23 06:42 Order name: Lipase; Complete Time: 07:44 EDMS 06/23 06:42 Order name: Procalcitonin; Complete Time: 07:48 EDMS 06/23 06:42 Order name: Protime (+INR); Complete Time: 08:46 EDMS 06/23 07:04 Order name: Glucose, Ancillary Testing; Complete Time: 07:16 EDID 06/23 12:03 Order name: Glucose, Ancillary Testing [facility] 06/23 13:02 Order name: Lactate Sepsis 2 HR Follow-up EDID 06/23 16:04 Order name: Urine Dipstick--Ancillary (enter results) hb 06/23 16:13 Order name: Urinalysis EDID 06/23 06:41 Order name: Chest Single View XRAY; Complete Time: 08:46 ma2 06/23 06:41 Order name: Accucheck; Complete Time: 06:58 ma2 06/23 06:41 Order name: Cardiac monitoring; Complete Time: 06:58 ak2 06/23 06:41 Order name: EKG - Nurse/Tech; Complete Time: 06:58 ak2 06/23 06:41 Order name: IV Saline Lock - Large Bore; Complete Time: 06:58 ak2 06/23 06:41 Order name: Labs collected and sent; Complete Time: 06:58 ak2 06/23 06:41 Order name: O2 Per Protocol; Complete Time: 06:58 ma2 06/23 06:41 Order name: O2 Sat Monitoring; Complete Time: 06:58 ma2 06/23 06:41 Order name: Urine Dipstick-Ancillary (obtain specimen); Complete Time: 16:39 ma2 06/23 07:04 Order name: BIPAP [facility] 06/23 07:05 Order name: Labs - recollect needed: recollect lactate,specimen to old.; Complete Time: bd 07:24 06/23 07:41 Order name: Labs - recollect needed: recollect blue top, was clotted; Complete Time: bd 08:03 06/23 09:48 Order name: CONS Physician Consult EDID 06/23 16:16 Order name: Urine Dipstick-Ancillary [facility] 06/23 16:58 Order name: Glucose, Ancillary Testing EDID Administered Medications: 06:56 Drug: AZITHromycin 500 mg Route: IVPB; Infused Over: 1 hrs; Site: left forearm; 07:56 Follow up: Response: No adverse reaction; IV Status: Completed infusion; IV Intake: tw2 250ml 06:56 Not Given (Physician Discretion): SOLU-Medrol 125 mg IVP once 06:57 Not Given (Physician Discretion): NS 0.9% 1000 ml IV at 125 ml/hr continuous 06:57 Drug: NS 0.9% 1000 ml Route: IV; Rate: 50 ml/hr; Site: left forearm; 16:38 Follow up: Response: No adverse reaction; IV Status: Infusion continued upon admission tw2 08:00 Drug: Insulin Regular Human 10 units {Co-Signature: jostin (Rosalie Wilhelm RN).} Route: tw2 Sub-Q; Site: right upper arm; 15:48 Follow up: Response: No adverse reaction; Blood sugar is lowered; Blood sugar is tw2 lowered, see meditech 10:06 Drug: Tylenol 1000 mg Route: PO; tw2 15:48 Follow up: Response: No adverse reaction tw2 Disposition: 08:39 Critical Care:. rn Disposition: 06/23/20 08:40 Hospitalization ordered by Toribio Israel for Inpatient Admission. Preliminary diagnosis are Coronavirus infection, unspecified, Pneumonia, unspecified organism - Bilateral, Hypoxemia. - Bed requested for Telemetry/MedSurg (Inpatient). - Status is Inpatient Admission. tw2 - Condition is Stable. - Problem is new. - Symptoms have improved. Critical care time excluding procedures: 08:39 Critical care time: Bedside Care: 25 minutes, Consultation: 5 minutes. Total time: 30 rn minutes Signatures: Dispatcher [employer] EDLisa Schroeder Stephanie, RN RN sv Nieto, Roman, MD MD rn Wise, Tara, RN RN [facility] Natalee Reilly RN RN wh Alzahri, Mohammad, MD MD [facility] Rosalie frankel Corrections: (The following items were deleted from the chart) 09:26 08:40 Hospitalization Ordered by Toribio Israel for Inpatient Admission. Preliminary tw2 diagnosis is Coronavirus infection, unspecified; Pneumonia, unspecified organism - Bilateral; Hypoxemia. Bed requested for Telemetry/MedSurg (Inpatient). Status is Inpatient Admission. Condition is Stable. Problem is new. Symptoms have improved. rn 10:18 09:26 06/23/2020 08:40 Hospitalization Ordered by Toribio Israel for Inpatient Admission. Preliminary diagnosis is Coronavirus infection, unspecified; Pneumonia, unspecified organism - Bilateral; Hypoxemia. Bed requested for Telemetry/MedSurg (Inpatient). Status is Inpatient Admission. Condition is Stable. Problem is new. Symptoms have improved. tw2 15:35 10:18 06/23/2020 08:40 Hospitalization Ordered by Toribio Israel for Inpatient bd Admission. Preliminary diagnosis is Coronavirus infection, unspecified; Pneumonia, unspecified organism - Bilateral; Hypoxemia. Bed requested for [facility] ER HOLD. Status is Inpatient Admission. Condition is Stable. Problem is new. Symptoms have improved. sv 17:44 15:35 06/23/2020 08:40 Hospitalization Ordered by Toribio Israel for Inpatient tw2 Admission. Preliminary diagnosis is Coronavirus infection, unspecified; Pneumonia, unspecified organism - Bilateral; Hypoxemia. Bed requested for Telemetry/MedSurg (Inpatient). Status is Inpatient Admission. Condition is Stable. Problem is new. Symptoms have improved. bd
[2020-06-23] MEDS ORDERED: ONDANSETRON 4 MG/2 ML VIAL IV PRN (10:08)
[2020-06-23] MEDS ORDERED: ACETAMINOPHEN 500 MG TAB PO PRN (10:08)
[2020-06-23] MEDS ORDERED: ACETAMINOPHEN 500 MG TAB ONE (10:12)
[2020-06-23] MEDS ORDERED: INFLUENZA VACCINE (for 3y+) 0.5 ML DOSE IMVAC ONE (11:00)
[2020-06-23] MEDS: INSULIN -REGULAR HUMAN 50 UNIT/0.5 ML ML SQ SCH ×3 (11:30→21:21)
[2020-06-23] MEDS ORDERED: HYDROCODONE/APAP 7.5/325 MG TAB PO ONE (12:43)
[2020-06-23] MEDS ORDERED: HYDROCODONE/APAP 7.5/325 MG TAB ONE (12:53)
--- NOTE | 2020-06-23 16:06 | P.HP ---
Certification for Inpatient Patient admitted to: Inpatient With expected LOS: >2 Midnights Practitioner: I am a practitioner with admitting privileges, knowledge of patient current condition, hospital course, and medical plan of care. Services: Services provided to patient in accordance with Admission requirements found in Title 42 Section 412.3 of the Code of Federal Regulations Patient History Date of Service: 06/23/20 Reason for admission: Shortness of breath History of Present Illness: 55-year-old gentleman with a history of diabetes mellitus type 2, hypertension presented emergency department with increased shortness of breath, cough and general malaise. Patient stated he was diagnosed with COVID 19 infection about 4-5 days ago. He was hypoxic on room air in respiratory distress on arrival to the ED. Patient was placed on BiPAP therapy. Chest x-ray demonstrated bilateral infiltrates. Patient given Solu-Medrol prior to arrival to the ED. Was also given a dose of IV Zithromax. Patient is hospitalized for further management. Allergies No Known Drug Allergies Allergy (Verified 03/26/19 03:22) Unknown Home Medications: Amiodarone HCl [Cordarone*] 200 mg PO DAILY 08/27/15 allopurinoL [Zyloprim*] 300 mg PO DAILY 08/27/15 carvediloL [Coreg*] 25 mg PO BID 08/27/15 Pregabalin [Lyrica*] 150 mg PO BID 10/07/15 Venlafaxine HCl [Effexor Xr] 1 cap PO BID 10/07/15 Atorvastatin Calcium 2 tab PO DAILY 03/26/19 Sacubitril/Valsartan [Entresto 49 mg-51 mg Tablet] 1 tab PO BID 03/26/19 Hydrocodone Bit/Acetaminophen [Hydrocodon-Acetaminoph 7.5-325] 1 each PO Q6HP PRN 06/23/20 Levothyroxine [Synthroid] 50 mcg PO [id number] 06/23/20 Spironolactone [Aldactone] 25 mg PO DAILY 06/23/20 Torsemide [Demadex] 20 mg PO DAILY 06/23/20 hydrOXYzine HCL [Atarax] 25 mg PO QID 06/23/20 - Past Medical/Surgical History Diabetic: Yes -: CAD -: CHF -: Hyperlipidemia -: NIDDM -: gout -: HTN -: constipation -: insomnia -: peripheral neuropathy -: depression -: Chronic pain -: ADD/ADHD -: vasectomy -: pacemaker/defibrillator -: VSD repair -: Back & neck surgery - Family History Father -: Heart disease Mother Notes: Alzheimer's - Social History Smoking Status: Unknown if ever smoked Alcohol use: No CD- Drugs: No Caffeine use: Yes Review of Systems Other: Except as documented, all other systems reviewed and negative. Physical Examination - Vital Signs Blood Pressure: 135/86 Pulse: 67 Respirations: 24 Pulse Ox (%): 96 - Physical Exam General: Alert, Oriented x3, Mild distress HEENT: PERRLA, Mucous membr. moist/pink, Sclerae nonicteric Neck: Supple, JVD not distended Respiratory: Clear to auscultation bilaterally, Normal air movement Cardiovascular: No edema, Regular rate/rhythm, Normal S1 S2 Gastrointestinal: Normal bowel sounds, Soft and benign, Non-distended, No tenderness Musculoskeletal: No swelling, No tenderness Integumentary: No rashes, No erythema Neurological: Normal speech, Normal strength at 5/5 x4 extr, Cranial nerves 3-12 intact - Studies Laboratory Data (last 24 hrs) 06/23/20 08:00: PT 13.7 H, INR 1.19, APTT 20.7 L 06/23/20 06:30: WBC 18.60 H, Hgb 17.1, Hct 51.3 H, Plt Count 231 06/23/20 06:30: Sodium 129 L, Potassium 5.2 H, BUN 39 H, Creatinine 1.62 H, Glucose 453 H*, Total Bilirubin 0.9, AST 34, ALT 57, Alkaline Phosphatase 84, Amylase 48, Lipase 120 Assessment and Plan - Problems (Diagnosis) (1) Pneumonia due to COVID-19 virus Current Visit: Yes Status: Acute (2) Acute respiratory failure with hypoxia Current Visit: Yes Status: Acute (3) Chronic systolic (congestive) heart failure Current Visit: Yes Status: Chronic (4) Diabetes Current Visit: No Status: Chronic - Plan Admit to the medical floor. Continue BiPAP and wean off as tolerated. Treat with IV Solu-Medrol, vitamin supplementation, zinc supplementation. Will give a dose of Ivermectin. Eliquis for thromboembolism prophylaxis. Will also treat with intermittent Lasix as needed for vascular congestion. Insulin sliding scale and Lantus insulin glucose management. Titrate Lantus insulin to cover a steroid induced hyperglycemia. Pharmacy to evaluate for Remdesivir therapy. Pulmonary consult. Monitor inflammatory markers. - Advance Directives Does patient have a Living Will: No Does patient have a Durable POA for Healthcare: No
[2020-06-23 16:07] LABS: Urine Appearance CLEAR; Urine Bilirubin NEGATIVE (NEG); Urine Blood NEGATIVE (NEG); Urine Color YELLOW; Urine Glucose 3+ (NEG); Urine Protein TRACE (NEG); Urine Specific Gravity >=1.030 (1.005-1.030); Urine pH 5.5 (5.0-7.0)
[2020-06-23 16:12] LABS: Urine Microscopic Reflex NO UMIC
[2020-06-23 16:16] LABS: Urine Blood NEGATIVE (NEG); Urine Glucose 2+ (NEG); Urine Protein 1+ (NEG); Urine pH 5.5 (5.0-7.0)
[2020-06-23] MEDS ORDERED: Remdesivir 200 MG in NA CHLORIDE 0.9% 250 ML IV ONE (18:30)
[2020-06-23] MEDS ORDERED: IVERMECTIN 3 MG TABLET PO ONE (19:00)
[2020-06-23] MEDS ORDERED: LORazepam 2 MG/ML VIAL IV PRN (19:50)
[2020-06-23] MEDS: HYDROCODONE/APAP 7.5/325 MG TAB PO PRN (19:59)
[2020-06-23] MEDS ORDERED: APIXABAN 5 MG TABLET PO SCH (21:00)
[2020-06-23] MEDS: PREGABALIN 75 MG CAP PO SCH (21:20)
[2020-06-24] MEDS: HYDROCODONE/APAP 7.5/325 MG TAB PO PRN ×4 (01:52→20:47)
[2020-06-24 02:48] LABS: Arterial Blood Carboxyhemoglob 0.5 % (0-1.5); Blood Gas Oxyhemoglobin 93.3 % (94-97); Blood O2 Saturation 94.6 % (92-98.5)
[2020-06-24 04:15] LABS: Absolute Lymphocytes (CBC) 0.6 K/uL (0.7-4.9); Basophils % 0.1 % (0-1.3); Hematocrit 48.6 % (39.6-49.0); MPV 10.8 fL (7.6-11.3); RBC Red Blood Cell Count 5.29 M/uL (4.33-5.43)
[2020-06-24 04:40] LABS: Bilirubin Total 0.7 mg/dL (0.2-1.0); Ferritin 2553.9 ng/mL (26-388); Magnesium 2.4 mg/dL (1.8-2.4); Potassium 4.6 mmol/L (3.5-5.1); Protein, Total 7.3 g/dL (6.4-8.2)
[2020-06-24] MEDS ORDERED: HEPARIN/D5W 25,000 UNIT/500 ML BAG IV SCH (05:00)
[2020-06-24 05:10] LABS: Blood Morphology Comment NOT SEEN (NOT SEEN); Platelet Estimate ADEQ
[2020-06-24] MEDS ORDERED: NOREPINEPHRINE 4mg/D5W 250mL 4 MG/250 ML BAG IV ONE (05:29)
[2020-06-24] MEDS ORDERED: HEPARIN/D5W 25,000 UNIT/500 ML BAG IV ONE (05:30)
[2020-06-24] MEDS: NOREPINEPHRINE 4 MG in D5W 250 ML IV PRN ×2 (05:35→13:45)
[2020-06-24] MEDS ORDERED: LIDOCAINE 1% MPF 5 ML VIAL ONE (05:41)
[2020-06-24] MEDS: hydrOXYzine HCL 25 MG TAB PO PRN (06:08)
[2020-06-24] MEDS ORDERED: D50W 25 GM/50 ML SYRINGE IV PRN (07:09)
[2020-06-24 07:16] LABS: Protime INR 1.64
[2020-06-24] MEDS: INSULIN -REGULAR HUMAN 50 UNIT/0.5 ML ML SQ SCH ×5 (07:30→20:48)
[2020-06-24] MEDS ORDERED: D50W 50 ML IV ONE (07:31)
[2020-06-24] MEDS: PREGABALIN 75 MG CAP PO SCH ×2 (07:38→20:46)
[2020-06-24] MEDS ORDERED: VANCOMYCIN/NS 1 gm 1 GM/250 ML BAG IVPB SCH (08:30)
[2020-06-24] MEDS: Remdesivir 100 MG in NA CHLORIDE 0.9% 250 ML IV SCH (08:42)
--- NOTE | 2020-06-24 08:56 | P.CNS ---
Date of Consult: 06/24/20 Reason for Consult: Shock Chief Complaint: Shortness of breath History of Present Illness: Patient is 55 years of age with history of diabetes hypertension admitted from the emergency room with shortness of breath cough amylase diagnosed with calloway virus 5 days ago patient developed hypertension was transferred to the ICU is currently on vasopressors History of congestive heart failed Allergies No Known Drug Allergies Allergy (Verified 03/26/19 03:22) Unknown Home Medications: Amiodarone HCl [Cordarone*] 200 mg PO DAILY 08/27/15 allopurinoL [Zyloprim*] 300 mg PO DAILY 08/27/15 carvediloL [Coreg*] 25 mg PO BID 08/27/15 Pregabalin [Lyrica*] 150 mg PO BID 10/07/15 Venlafaxine HCl [Effexor Xr] 1 cap PO BID 10/07/15 Atorvastatin Calcium 2 tab PO DAILY 03/26/19 Sacubitril/Valsartan [Entresto 49 mg-51 mg Tablet] 1 tab PO BID 03/26/19 Hydrocodone Bit/Acetaminophen [Hydrocodon-Acetaminoph 7.5-325] 1 each PO Q6HP PRN 06/23/20 Levothyroxine [Synthroid] 50 mcg PO [id number] 06/23/20 Spironolactone [Aldactone] 25 mg PO DAILY 06/23/20 Torsemide [Demadex] 20 mg PO DAILY 06/23/20 hydrOXYzine HCL [Atarax] 25 mg PO QID 06/23/20 - Past Medical/Surgical History Diabetic: Yes -: CAD -: CHF -: Hyperlipidemia -: NIDDM -: gout -: HTN -: constipation -: insomnia -: peripheral neuropathy -: depression -: Chronic pain -: ADD/ADHD -: vasectomy -: pacemaker/defibrillator -: VSD repair -: Back & neck surgery - Family History Father Medical History: Heart disease Mother Notes: Alzheimer's - Social History Smoking Status: Never smoker Alcohol use: No CD- Drugs: No Caffeine use: Yes Review of Systems is unable to be obtained Physical Examination Temp Pulse Resp BP Pulse Ox 97.1 F 77 30 H 101/64 90 L 06/24/20 04:58 06/24/20 06:30 06/24/20 08:38 06/24/20 06:30 06/24/20 08:38 General: Unresponsive Respiratory: Clear to auscultation bilaterally, Diminished Cardiovascular: No edema, Normal S1 S2 - Problems (1) Shock Current Visit: Yes Status: Acute Plan: Patient is 55 years of age admitted with shock presumed septic chest x-ray appears to be clear minimal bilateral infiltrate agree with full anticoagulation in use dose adjusted Lovenox IV fluid boluses broad-spectrum antibiotic renal function is also worse start on IV steroid patient has a formal liver function ultrasound of the liver and kidneys
[2020-06-24] MEDS ORDERED: D5 0.9 NS 500 ML IV SCH (09:00)
[2020-06-24] MEDS ORDERED: CEFTRIAXONE 1 GM/NS 50 ML 1 GM/50 ML BAG IV SCH (09:00)
[2020-06-24] MEDS ORDERED: hydrOXYzine HCL 25 MG TAB PO SCH (09:00)
[2020-06-24] MEDS: METHYLPREDNISOLONE 125 MG INJ IV SCH ×2 (09:13→20:47)
[2020-06-24] MEDS: CEFTRIAXONE/SWI 1gm 1 GM/10 ML SYR IV SCH ×2 (09:14→20:48)
[2020-06-24] MEDS ORDERED: IVERMECTIN 3 MG TABLET PO ONE (09:15)
[2020-06-24 09:32] LABS: Arterial Blood Carboxyhemoglob 0.5 % (0-1.5); Blood Gas Oxyhemoglobin 89.2 % (94-97); Blood O2 Saturation 90.5 % (92-98.5)
[2020-06-24] MEDS: VANCOMYCIN 1.75 GM in NA CHLORIDE 0.9% 500 ML IVPB SCH (10:00)
--- NOTE | 2020-06-24 10:16 | RAD REPORT ---
EXAM DESCRIPTION: US - Abdomen Exam Complete - 06/24/2020 9:54 am CLINICAL HISTORY: Renal failure/abnormal liver function COMPARISON: none FINDINGS: The liver has a mildly increased echotexture. A gallstone is not seen. The gallbladder wall is not thickened. The biliary tree is normal caliber. Limited evaluation of pancreas secondary to overlying bowel gas without visualization of a gross abno rmality. The right kidney measures 10 centimeters with a normal echotexture. The left kidney measures 10 centimeters with a normal echotexture. A 2.8 centimeters cyst No hydronephrosis The spleen measures 10 centimeters. The abdominal aorta and inferior vena cava appear unremarkable IMPRESSION: Mildly increased hepatic echotexture may indicate mild fatty infiltration
[2020-06-24] MEDS: ENOXAPARIN 100 MG/ML SYR SQ SCH ×2 (10:46→20:46)
[2020-06-24] MEDS: VENLAFAXINE HCL XR 75 MG CAP PO SCH ×2 (10:47→20:47)
--- NOTE | 2020-06-24 11:14 | RAD REPORT ---
EXAM DESCRIPTION: Naomi Single View06/24/2020 11:07 am CLINICAL HISTORY: Pneumonia COMPARISON: June 23, 2020 FINDINGS: Mild bibasilar lung opacities are minimally worsened. Heart is mildly enlarged. Post surgical changes involve the chest. Pacemaker leads in place IMPRESSION: Minimal worsening in mild bibasilar lung opacities probably pneumonia
--- NOTE | 2020-06-24 18:43 | P.PN ---
Subjective Date of Service: 06/24/20 Chief Complaint: Shortness of breath Patient developed hypotension and respiratory distress and hypoxia on the BiPAP last night. FiO2 was increased to 100%. Patient was transferred to the ICU for close monitor and started on vasopressors for hypotension. He was on low-dose vasopressor this morning. SaO2 90% on 100% FiO2 BiPAP. He is awake and communicative. Physical Examination - Vital Signs Temperature: 97.1 F Blood Pressure: 110/64 Pulse: 78 Respirations: 28 Pulse Ox (%): 84 - Physical Exam General: Moderate distress, Other (Awake) HEENT: Other (BIPAP) Neck: JVD not distended Respiratory: Other (Breathing is mildly labored) Cardiovascular: No edema, Regular rate/rhythm, Normal S1 S2 Gastrointestinal: Soft and benign, Non-distended Musculoskeletal: No swelling Integumentary: No rashes Neurological: Normal strength at 5/5 x4 extr, Cranial nerves 3-12 intact Assessment And Plan - Current Problems (Diagnosis) (1) Pneumonia due to COVID-19 virus Current Visit: Yes Status: Acute (2) Acute respiratory failure with hypoxia Current Visit: Yes Status: Acute (3) Chronic systolic (congestive) heart failure Current Visit: Yes Status: Chronic (4) Diabetes Current Visit: No Status: Chronic - Plan Pulmonary input appreciated Continue BiPAP. Continue IV Solu-Medrol, vitamin supplementation, zinc supplementation. Status post Ivermectin. Will start IV antibiotics Status post normal saline bolus. Continue Eliquis for thromboembolism prophylaxis. Insulin sliding scale and Lantus insulin glucose management. Titrate Lantus insulin to cover a steroid induced hyperglycemia. Patient also started on Remdesivir therapy. Monitor inflammatory markers.
[2020-06-25] MEDS: HYDROCODONE/APAP 7.5/325 MG TAB PO PRN ×4 (02:21→22:02)
[2020-06-25 05:53] LABS: Albumin 2.2 g/dL (3.4-5.0); Bilirubin Total 0.8 mg/dL (0.2-1.0); Potassium 4.4 mmol/L (3.5-5.1); Protein, Total 6.2 g/dL (6.4-8.2)
[2020-06-25 06:11] LABS: Absolute Lymphocytes (CBC) 0.4 K/uL (0.7-4.9); Hematocrit 44.1 % (39.6-49.0); Lymphocytes % 2.5 % (15.3-44.8); MPV 11.9 fL (7.6-11.3)
--- NOTE | 2020-06-25 07:22 | EKG ---
Test Date: 2020-06-23 Test Time: 05:35:30 Finance Attorney: LUCIANO MEASUREMENT RESULTS: Intervals: Rate: 100 NJ: 208 QRSD: 158 QT: 402 QTc: 518 [place]: P: 61 NJ: 208 QRS: 188 T: 44 INTERPRETIVE STATEMENTS: Normal sinus rhythm Right bundle branch block Abnormal ECG Compared to ECG 03/26/2019 00:14:01 T-wave abnormality no longer present Possible ischemia no longer present Electronically Signed On 06-25-20 07:19:09 CDT by Errol Powers
[2020-06-25] MEDS: INSULIN -REGULAR HUMAN 50 UNIT/0.5 ML ML SQ SCH ×4 (08:21→20:11)
[2020-06-25] MEDS: METHYLPREDNISOLONE 125 MG INJ IV SCH ×2 (08:22→20:11)
[2020-06-25] MEDS: ENOXAPARIN 100 MG/ML SYR SQ SCH (08:24)
[2020-06-25] MEDS: CEFTRIAXONE/SWI 1gm 1 GM/10 ML SYR IV SCH ×2 (08:24→20:11)
[2020-06-25] MEDS: VENLAFAXINE HCL XR 75 MG CAP PO SCH ×2 (08:24→20:11)
[2020-06-25] MEDS: PREGABALIN 75 MG CAP PO SCH ×2 (08:24→20:11)
[2020-06-25] MEDS: VANCOMYCIN 1.75 GM in NA CHLORIDE 0.9% 500 ML IVPB SCH (08:25)
--- NOTE | 2020-06-25 08:33 | RAD REPORT ---
EXAM DESCRIPTION: Naomi Single View06/25/2020 6:15 am CLINICAL HISTORY: Pneumonia COMPARISON: June 24, 2020 FINDINGS: No significant change in the bibasilar lung opacities. Upper lobes are clear. Heart remains enlarged. Unchanged pacemaker leads. IMPRESSION: No change in bibasilar pulmonary opacities probably pneumonia
[2020-06-25 08:45] LABS: Blood Morphology Comment NOT SEEN (NOT SEEN); Platelet Estimate DECR; White Blood Cell Scan OK (OK)
--- NOTE | 2020-06-25 09:03 | ECHO ---
HEIGHT: 6 ft 0 in WEIGHT: 209 lb 15.845 oz DATE OF STUDY: 06/24/[address]: Thaddeus Ayoub MD 2-DIMENSIONAL: YES M.MODE: YES DOPPLER: YES COLOR FLOW: YES TDS: YES PORTABLE: YES DEFINITY: NO BUBBLE STUDY: NO DIAGNOSIS: SHOCK, HISTORY OF CONGESTIVE HEART FAILURE CARDIAC HISTORY: CATHERIZATION: YES SURGERY: YES PROSTHETIC VALVE: NO PACEMAKER: MEASUREMENTS (cm) DIASTOLIC (NORMALS) SYSTOLIC (NORMALS) IVSd 0.7 (0.6-1.2) LA Diam 2.9 (1.9-4.0) LVEF 82% LVIDd 2.9 (3.5-5.7) LVIDs 1.5 (2.0-3.5) %FS 49% LVPWd 0.7 (0.6-1.2) Ao Diam 2.1 (2.0-3.7) 2 DIMENSIONAL ASSESSMENT: RIGHT ATRIUM: NORMAL LEFT ATRIUM: RIGHT VENTRICLE: NORMAL LEFT VENTRICLE: TRICUSPID VALVE: NORMAL MITRAL VALVE: MITRAL ANNULAR CALCIFICATION PULMONIC VALVE: NORMAL AORTIC VALVE: PERICARDIAL EFFUSION: NONE AORTIC ROOT: LEFT VENTRICULAR WALL MOTION: DECREASED LEFT VENTRICULAR COMPLIANCE. DOPPLER/COLOR FLOW: MILD TRICUSPID AND MITRAL REGURGITATION. SEVERE PULMONARY HYPERTENSION. RIGHT VENTRICULAR SYSTOLIC PRESSURE 88 mmHg. COMMENTS: VERY TECHNICALLY DIFFICULT STUDY. GROSSLY NORMAL LEFT VENTRICULAR EJECTION FRACTION AND LEFT VENTRICLE SIZE. MILD TRICUSPID AND MITRAL REGURGITATION. MITRAL ANNULAR CALCIFICATION. SEVERE PULMONARY HYPERTENSION. RIGHT VENTRICULAR SYSTOLIC PRESSURE 88 mmHg. DECREASED LEFT VENTRICULAR COMPLIANCE. TECHNOLOGIST: Clif REN
[2020-06-25] MEDS: Remdesivir 100 MG in NA CHLORIDE 0.9% 250 ML IV SCH (09:19)
--- NOTE | 2020-06-25 13:23 | P.PN ---
Subjective Date of Service: 06/25/20 Chief Complaint: Shortness of breath Patient is doing better today. He is now tolerating high-flow oxygen. He is off pressors. Physical Examination - Vital Signs Temperature: 96.5 F Blood Pressure: 104/66 Pulse: 109 Respirations: 21 Pulse Ox (%): 85 - Physical Exam General: Alert, In no apparent distress HEENT: Mucous membr. moist/pink Neck: Supple, JVD not distended Respiratory: Other (Nonlabored breathing) Cardiovascular: No edema, Regular rate/rhythm Gastrointestinal: Soft and benign, Non-distended Musculoskeletal: No swelling Integumentary: No rashes Neurological: Normal strength at 5/5 x4 extr, Cranial nerves 3-12 intact Assessment And Plan - Current Problems (Diagnosis) (1) Pneumonia due to COVID-19 virus Current Visit: Yes Status: Acute (2) Acute respiratory failure with hypoxia Current Visit: Yes Status: Acute (3) Chronic systolic (congestive) heart failure Current Visit: Yes Status: Chronic (4) Diabetes Current Visit: No Status: Chronic - Plan Continue high-flow oxygen. Intermittent BiPAP as needed. Continue IV Solu-Medrol, vitamin supplementation, zinc supplementation. Status post Ivermectin. Continue IV antibiotics Continue Eliquis for thromboembolism prophylaxis. Insulin sliding scale and Lantus insulin glucose management. Titrate Lantus insulin to cover a steroid induced hyperglycemia. Continue Remdesivir therapy. Monitor inflammatory markers. Pulmonary to follow.
[2020-06-25] MEDS ORDERED: NA CHLORIDE 0.9% 1,000 ML with POTASSIUM CL 10 MEQ IV SCH ×2 (14:00)
--- NOTE | 2020-06-25 14:25 | RAD REPORT ---
EXAM DESCRIPTION: CT - Chest For Pe Angio - 06/25/2020 2:02 pm CLINICAL HISTORY: Rule out PE, pneumonia, shortness breath, COVID positive, decreased O2 saturation COMPARISON: [facility]ANGIO CHEST FOR PE dated 04/21/2010; Chest Single View dated 06/25/2020 TECHNIQUE: Dynamically enhanced 3 mm thick images of the chest were obtained during administration o f approximately 150mL Isovue 370 IV contrast. Coronal and oblique MIP reconstruction images were gene rated and reviewed. Exam utilizes a protocol to evaluate the pulmonary arterial tree. All CT scans are performed using dose optimization technique as appropriate and may include automated exposure control or mA/KV adjustment according to patient size. FINDINGS: No pulmonary emboli are identified. The aorta as imaged shows no acute or suspicious finding. Cardiomegaly is present with prominent righ t ventricle and right atrial enlargement. No pericardial effusion. Right upper lobe is spared any significant disease. Patient has interstitial and alveolar opacificati on in the lingula of an otherwise unremarkable left upper lobe. Dense airspace opacification is prese nt with air bronchogram formation filling much of the mid and lower aspect left lower lobe. Significa nt right base airspace opacification seen in the right middle lobe and right lower lobe. Air-filled c ystic cavities are present in the right lung base opacities. A few punctate air space cavities are pr esent within the consolidated left lower lobe parenchyma. No mediastinal or hilar suspicious masses. No chest wall masses or abnormal axillary lymphadenopathy. IMPRESSION: No pulmonary emboli identified. Extensive bilateral primarily lung base pneumonia pattern. This would be consistent with a COVID-19 p neumonia given the collective history. Multiple cystic air-filled cavities have developed within the areas of pneumonia.The cystic cavities are most likely areas of necrotic change related to the COVID-19 infection rather than necrotic bacte rial infection.
[2020-06-25] MEDS: APIXABAN 5 MG TABLET PO SCH (20:11)
[2020-06-26] MEDS: HYDROCODONE/APAP 7.5/325 MG TAB PO PRN ×4 (03:49→22:10)
[2020-06-26 05:02] LABS: Absolute Lymphocytes (CBC) 0.3 K/uL (0.7-4.9); Basophils % 0.1 % (0-1.3); Hematocrit 47.6 % (39.6-49.0); MPV 11.9 fL (7.6-11.3); RBC Red Blood Cell Count 5.06 M/uL (4.33-5.43)
[2020-06-26 06:35] LABS: Albumin 2.2 g/dL (3.4-5.0); Bilirubin Total 0.7 mg/dL (0.2-1.0); Ferritin 2602.1 ng/mL (26-388); Potassium 4.8 mmol/L (3.5-5.1)
[2020-06-26] MEDS: INSULIN -REGULAR HUMAN 50 UNIT/0.5 ML ML SQ SCH ×4 (07:43→20:56)
[2020-06-26] MEDS: VENLAFAXINE HCL XR 75 MG CAP PO SCH ×2 (07:44→20:52)
[2020-06-26] MEDS: CEFTRIAXONE/SWI 1gm 1 GM/10 ML SYR IV SCH ×2 (07:44→20:52)
[2020-06-26] MEDS: PREGABALIN 75 MG CAP PO SCH ×2 (07:44→20:52)
[2020-06-26] MEDS: APIXABAN 5 MG TABLET PO SCH ×2 (07:44→20:52)
[2020-06-26] MEDS: METHYLPREDNISOLONE 125 MG INJ IV SCH ×2 (07:44→20:52)
[2020-06-26] MEDS: VANCOMYCIN 1.75 GM in NA CHLORIDE 0.9% 500 ML IVPB SCH (08:30)
[2020-06-26] MEDS: Remdesivir 100 MG in NA CHLORIDE 0.9% 250 ML IV SCH (09:00)
--- NOTE | 2020-06-26 11:42 | P.PN ---
Subjective Date of Service: 06/26/20 Chief Complaint: Respiratory failure Subjective: Improving (Patient is improving he is more alert responsive cooperative hemodynamically stable) Review of Systems General: Weakness Respiratory: Cough, Shortness of Breath Physical Examination - Vital Signs Temperature: 97.0 F Blood Pressure: 121/87 Pulse: 112 Respirations: 20 Pulse Ox (%): 89 - Physical Exam General: Alert, Oriented x3, Mild distress Respiratory: Crackles/rales (Right worse than the left) Cardiovascular: No edema, Normal S1 S2 Assessment & Plan - Problems (Diagnosis) (1) Pneumonia due to COVID-19 virus Current Visit: Yes Status: Acute Plan: Patient has bilateral consolidation little atypical for [place] virus pneumonia continue with steroids antibiotics sputum culture is positive is still very hypoxic on high-flow blood pressure is stable blood sugar is little elevated white count is declining continue with Rocephin and vancomycin
--- NOTE | 2020-06-26 18:44 | P.PN ---
Subjective Date of Service: 06/26/20 Chief Complaint: Respiratory failure No changes from yesterday. He is now tolerating high-flow oxygen. Physical Examination - Vital Signs Temperature: 96.9 F Blood Pressure: 128/96 Pulse: 114 Respirations: 24 Pulse Ox (%): 85 - Physical Exam General: Alert, In no apparent distress Respiratory: Other (No labored breathing) Cardiovascular: No edema, Regular rate/rhythm Gastrointestinal: Soft and benign, Non-distended Musculoskeletal: No swelling Integumentary: No rashes Neurological: Normal strength at 5/5 x4 extr Assessment And Plan - Current Problems (Diagnosis) (1) Pneumonia due to COVID-19 virus Current Visit: Yes Status: Acute (2) Acute respiratory failure with hypoxia Current Visit: Yes Status: Acute (3) Chronic systolic (congestive) heart failure Current Visit: Yes Status: Chronic (4) Diabetes Current Visit: No Status: Chronic - Plan Continue high-flow oxygen. Intermittent BiPAP as needed. Continue IV Solu-Medrol, vitamin supplementation, zinc supplementation. Status post Ivermectin. Continue IV antibiotics Continue Eliquis for thromboembolism prophylaxis. Insulin sliding scale and Lantus insulin glucose management. Continue Remdesivir therapy. Monitor inflammatory markers. Pulmonary is following and assisting with management.
[2020-06-26] MEDS: AMIODARONE HCL 200 MG TAB PO SCH (20:51)
[2020-06-26] MEDS: SPIRONOLACTONE 25 MG TABLET PO SCH (20:54)
[2020-06-26] MEDS: BENZONATATE 100 MG CAP PO PRN (20:54)
[2020-06-26] MEDS ORDERED: AMIODARONE HCL 200 MG TAB ONE (21:08)
[2020-06-27] MEDS: BENZONATATE 100 MG CAP PO PRN (02:57)
[2020-06-27] MEDS ORDERED: VANCOMYCIN 1.75 GM in NA CHLORIDE 0.9% 500 ML IVPB SCH (03:00)
[2020-06-27] MEDS: HYDROCODONE/APAP 7.5/325 MG TAB PO PRN ×4 (04:26→21:44)
[2020-06-27 05:29] LABS: Absolute Lymphocytes (CBC) 0.5 K/uL (0.7-4.9); Basophils % 0.1 % (0-1.3); Hematocrit 48.4 % (39.6-49.0); MPV 11.7 fL (7.6-11.3)
[2020-06-27 05:42] LABS: Magnesium 2.8 mg/dL (1.8-2.4); Phosphorus 3.6 mg/dL (2.5-4.9); Potassium 4.8 mmol/L (3.5-5.1)
[2020-06-27] MEDS: METHYLPREDNISOLONE 125 MG INJ IV SCH ×2 (08:02→20:24)
[2020-06-27] MEDS: SPIRONOLACTONE 25 MG TABLET PO SCH ×2 (08:02→20:21)
[2020-06-27] MEDS: VENLAFAXINE HCL XR 75 MG CAP PO SCH ×2 (08:03→20:22)
[2020-06-27] MEDS: AMIODARONE HCL 200 MG TAB PO SCH (08:03)
[2020-06-27] MEDS: APIXABAN 5 MG TABLET PO SCH ×2 (08:04→20:22)
[2020-06-27] MEDS: INSULIN -REGULAR HUMAN 50 UNIT/0.5 ML ML SQ SCH ×4 (08:07→20:22)
[2020-06-27] MEDS: CEFTRIAXONE/SWI 1gm 1 GM/10 ML SYR IV SCH (08:07)
[2020-06-27 08:10] LABS: Ferritin 2313.6 ng/mL (26-388)
[2020-06-27] MEDS: PREGABALIN 150 MG CAP PO SCH ×2 (09:00→20:22)
[2020-06-27] MEDS: Remdesivir 100 MG in NA CHLORIDE 0.9% 250 ML IV SCH (09:06)
[2020-06-27] MEDS ORDERED: PREGABALIN 75 MG CAP PO ONE (10:00)
--- NOTE | 2020-06-27 11:40 | P.PN ---
Subjective Date of Service: 06/27/20 Chief Complaint: Respiratory failure Patient seen sitting on the edge of the bed. He is now tolerating high-flow oxygen. Physical Examination - Vital Signs Temperature: 96.5 F Blood Pressure: 121/92 Pulse: 115 Respirations: 20 Pulse Ox (%): 87 - Physical Exam General: Alert, In no apparent distress Respiratory: Other (Nonlabored breathing) Cardiovascular: No edema, Regular rate/rhythm Gastrointestinal: Soft and benign, Non-distended Musculoskeletal: No swelling Integumentary: No rashes Neurological: Normal strength at 5/5 x4 extr Assessment And Plan - Current Problems (Diagnosis) (1) Pneumonia due to COVID-19 virus Current Visit: Yes Status: Acute (2) Acute respiratory failure with hypoxia Current Visit: Yes Status: Acute (3) Chronic systolic (congestive) heart failure Current Visit: Yes Status: Chronic (4) Diabetes Current Visit: No Status: Chronic - Plan Continue high-flow oxygen. Continue IV Solu-Medrol, vitamin supplementation, zinc supplementation. Status post Ivermectin. Blood pressure is stable. Sputum culture is growing pansensitive Staph aureus. Continue oral Levaquin. Discontinue vancomycin. Continue Eliquis for thromboembolism prophylaxis. Insulin sliding scale and Lantus insulin glucose management. Patient completed Remdesivir therapy. Monitor inflammatory markers. Pulmonary is following and assisting with management.
[2020-06-27] MEDS: levoFLOXacin 750 MG TAB PO SCH (13:23)
[2020-06-27] MEDS: carvediloL 12.5 MG TAB PO SCH (17:54)
[2020-06-27] MEDS: ASPIRIN 81 MG CHEWABLE TABLET PO SCH (20:21)
[2020-06-28] MEDS: HYDROCODONE/APAP 7.5/325 MG TAB PO PRN ×4 (03:13→21:56)
[2020-06-28] MEDS: carvediloL 12.5 MG TAB PO SCH ×2 (05:25→16:47)
[2020-06-28] MEDS: AMIODARONE HCL 200 MG TAB PO SCH (08:01)
[2020-06-28] MEDS: APIXABAN 5 MG TABLET PO SCH ×2 (08:01→20:44)
[2020-06-28] MEDS: VENLAFAXINE HCL XR 75 MG CAP PO SCH ×2 (08:01→20:45)
[2020-06-28] MEDS: PREGABALIN 150 MG CAP PO SCH ×2 (08:01→20:44)
[2020-06-28] MEDS: INSULIN -REGULAR HUMAN 50 UNIT/0.5 ML ML SQ SCH ×4 (08:01→20:46)
[2020-06-28] MEDS: SPIRONOLACTONE 25 MG TABLET PO SCH (08:02)
[2020-06-28] MEDS: METHYLPREDNISOLONE 125 MG INJ IV SCH ×2 (08:03→20:44)
[2020-06-28] MEDS ORDERED: GLUCAGON 1 MG/VIAL IM PRN (08:04)
[2020-06-28] MEDS: INSULIN GLARGINE 100 UNITS/ML SQ SCH ×2 (09:00→20:45)
[2020-06-28] MEDS: levoFLOXacin 750 MG TAB PO SCH (09:41)
--- NOTE | 2020-06-28 10:09 | P.PN ---
Subjective Date of Service: 06/28/20 Chief Complaint: Respiratory failure Patient's oxygen saturation reading is better today and high-flow oxygen. Patient sitting by the edge of the bed. He is tolerating his meals. Physical Examination - Vital Signs Temperature: 96.5 F Blood Pressure: 115/80 Pulse: 80 Respirations: 16 Pulse Ox (%): 93 - Physical Exam General: Alert, In no apparent distress Neck: JVD not distended Respiratory: Other (Nonlabored breathing) Cardiovascular: No edema, Regular rate/rhythm Gastrointestinal: Non-distended Musculoskeletal: No swelling Integumentary: No rashes Neurological: Normal strength at 5/5 x4 extr - Studies Microbiology Data (last 24 hrs): 06/23/20 06:45 Blood - Blood Aerobic Blood Culture - Final No growth in 5 days. 06/23/20 06:45 Blood - Blood Anaerobic Blood Culture - Final No growth in 5 days. 06/23/20 06:30 Blood - Blood Aerobic Blood Culture - Final No growth in 5 days. 06/23/20 06:30 Blood - Blood Anaerobic Blood Culture - Final No growth in 5 days. Assessment And Plan - Current Problems (Diagnosis) (1) Pneumonia due to COVID-19 virus Current Visit: Yes Status: Acute (2) Acute respiratory failure with hypoxia Current Visit: Yes Status: Acute (3) Chronic systolic (congestive) heart failure Current Visit: Yes Status: Chronic (4) Diabetes Current Visit: No Status: Chronic - Plan Continue high-flow oxygen. On IV Solu-Medrol, vitamin supplementation, zinc supplementation. Status post Ivermectin. Blood pressure is stable. Sputum culture is growing pansensitive Staph aureus. This is being treated with oral Levaquin Continue Eliquis for thromboembolism prophylaxis. Insulin sliding scale and Lantus insulin for glucose management. Patient completed Remdesivir therapy. Monitor inflammatory markers. Pulmonary is following and assisting with management.
[2020-06-28] MEDS: NYSTATIN 500,000 UNIT/5 ML UDC PO SCH (20:44)
[2020-06-29] MEDS: HYDROCODONE/APAP 7.5/325 MG TAB PO PRN ×4 (04:18→22:40)
[2020-06-29] MEDS: carvediloL 12.5 MG TAB PO SCH ×2 (06:18→17:01)
[2020-06-29] MEDS: LEVOTHYROXINE SOD 0.05 MG TABLET PO SCH (06:18)
[2020-06-29] MEDS: NYSTATIN 500,000 UNIT/5 ML UDC PO SCH ×3 (06:19→20:02)
[2020-06-29 06:37] LABS: Absolute Lymphocytes (CBC) 0.4 K/uL (0.7-4.9); Hematocrit 43.4 % (39.6-49.0); Lymphocytes % 2.8 % (15.3-44.8); MPV 10.6 fL (7.6-11.3); RBC Red Blood Cell Count 4.64 M/uL (4.33-5.43)
[2020-06-29 07:03] LABS: Albumin 1.9 g/dL (3.4-5.0); Bilirubin Total 1.1 mg/dL (0.2-1.0); Ferritin 1744.1 ng/mL (26-388); Potassium 4.9 mmol/L (3.5-5.1); Protein, Total 5.6 g/dL (6.4-8.2)
[2020-06-29] MEDS: ASPIRIN 81 MG CHEWABLE TABLET PO SCH (07:38)
[2020-06-29] MEDS: ATORVASTATIN 20 MG TAB PO SCH (07:38)
[2020-06-29] MEDS: SPIRONOLACTONE 25 MG TABLET PO SCH (07:39)
[2020-06-29] MEDS: VENLAFAXINE HCL XR 75 MG CAP PO SCH ×2 (07:40→20:00)
[2020-06-29] MEDS: AMIODARONE HCL 200 MG TAB PO SCH (07:40)
[2020-06-29] MEDS: APIXABAN 5 MG TABLET PO SCH ×2 (07:40→20:00)
[2020-06-29] MEDS: METHYLPREDNISOLONE 125 MG INJ IV SCH ×2 (07:40→20:00)
[2020-06-29] MEDS: PREGABALIN 150 MG CAP PO SCH ×2 (07:40→20:01)
[2020-06-29] MEDS: levoFLOXacin 750 MG TAB PO SCH (07:40)
[2020-06-29] MEDS: INSULIN -REGULAR HUMAN 50 UNIT/0.5 ML ML SQ SCH ×4 (07:42→20:01)
[2020-06-29] MEDS: TORSEMIDE 20 MG TAB PO SCH (07:42)
[2020-06-29] MEDS: allopurinoL 100 MG TAB PO SCH (07:43)
--- NOTE | 2020-06-29 10:38 | P.PN ---
Subjective Date of Service: 06/29/20 Chief Complaint: Respiratory failure Patient states he is doing better. FiO2 was weaned down to 85% overnight. Patient seen sitting by the edge of the bed. Physical Examination - Vital Signs Temperature: 96.2 F Blood Pressure: 115/64 Pulse: 60 Respirations: 20 Pulse Ox (%): 93 - Physical Exam General: Alert, In no apparent distress, Oriented x3 Neck: Supple, JVD not distended Respiratory: Other (Nonlabored breathing) Cardiovascular: No edema, Regular rate/rhythm, Normal S1 S2 Gastrointestinal: Soft and benign, Non-distended Musculoskeletal: No swelling Integumentary: No rashes Neurological: Normal strength at 5/5 x4 extr, Cranial nerves 3-12 intact - Studies Microbiology Data (last 24 hrs): 06/23/20 06:45 Blood - Blood Aerobic Blood Culture - Final No growth in 5 days. 06/23/20 06:45 Blood - Blood Anaerobic Blood Culture - Final No growth in 5 days. 06/23/20 06:30 Blood - Blood Aerobic Blood Culture - Final No growth in 5 days. 06/23/20 06:30 Blood - Blood Anaerobic Blood Culture - Final No growth in 5 days. Assessment And Plan - Current Problems (Diagnosis) (1) Pneumonia due to COVID-19 virus Current Visit: Yes Status: Acute (2) Acute respiratory failure with hypoxia Current Visit: Yes Status: Acute (3) Chronic systolic (congestive) heart failure Current Visit: Yes Status: Chronic (4) Diabetes Current Visit: No Status: Chronic - Plan Continue high-flow oxygen. On IV Solu-Medrol, vitamin supplementation, zinc supplementation. Status post Ivermectin. Blood pressure is stable. Sputum culture is growing pansensitive Staph aureus. This is being treated with oral Levaquin Continue Eliquis for thromboembolism prophylaxis. Insulin sliding scale and Lantus insulin for glucose management. Status post Remdesivir therapy. Monitor inflammatory markers. Pulmonary is following and assisting with management. Increase activity as tolerated.
[2020-06-29 10:54] LABS: Blood Morphology Comment NOT SEEN (NOT SEEN); Platelet Estimate ADEQ
--- NOTE | 2020-06-29 11:47 | P.PN ---
Subjective Date of Service: 06/29/20 Chief Complaint: Respiratory failure Subjective: Improving (Improving subjectively feeling better oxygen requirements of also been declining) Review of Systems General: Weakness Respiratory: Shortness of Breath Physical Examination - Vital Signs Temperature: 96.2 F Blood Pressure: 115/64 Pulse: 60 Respirations: 20 Pulse Ox (%): 87 - Studies Microbiology Data (last 24 hrs): 06/23/20 06:45 Blood - Blood Aerobic Blood Culture - Final No growth in 5 days. 06/23/20 06:45 Blood - Blood Anaerobic Blood Culture - Final No growth in 5 days. 06/23/20 06:30 Blood - Blood Aerobic Blood Culture - Final No growth in 5 days. 06/23/20 06:30 Blood - Blood Anaerobic Blood Culture - Final No growth in 5 days. Assessment & Plan - Problems (Diagnosis) (1) Pneumonia due to COVID-19 virus Current Visit: Yes Status: Acute Plan: Patient's condition is improving continue with present medication including antibiotic chemistries reviewed med list reviewed patient is in atrial flutter changed to doxycycline as patient is on amiodarone continue with low-dose spironolactone
[2020-06-29] MEDS: DOXYCYCLINE 100 MG CAP PO SCH (20:00)
[2020-06-29] MEDS: INSULIN GLARGINE 100 UNITS/ML SQ SCH (20:01)
[2020-06-30] MEDS: HYDROCODONE/APAP 7.5/325 MG TAB PO PRN ×4 (04:34→22:02)
[2020-06-30 05:52] LABS: C-Reactive Protein 41.6 mg/L (<3.00); Ferritin 1759.4 ng/mL (26-388); Potassium 4.9 mmol/L (3.5-5.1)
[2020-06-30] MEDS: carvediloL 12.5 MG TAB PO SCH ×2 (06:07→17:00)
[2020-06-30] MEDS: LEVOTHYROXINE SOD 0.05 MG TABLET PO SCH (06:07)
[2020-06-30] MEDS: INSULIN -REGULAR HUMAN 50 UNIT/0.5 ML ML SQ SCH ×4 (07:30→20:08)
[2020-06-30] MEDS: VENLAFAXINE HCL XR 75 MG CAP PO SCH ×2 (07:52→20:07)
[2020-06-30] MEDS: ATORVASTATIN 20 MG TAB PO SCH (07:52)
[2020-06-30] MEDS: AMIODARONE HCL 200 MG TAB PO SCH (07:53)
[2020-06-30] MEDS: PREGABALIN 150 MG CAP PO SCH ×2 (07:53→20:07)
[2020-06-30] MEDS: SPIRONOLACTONE 25 MG TABLET PO SCH (07:53)
[2020-06-30] MEDS: ASPIRIN 81 MG CHEWABLE TABLET PO SCH (07:53)
[2020-06-30] MEDS: APIXABAN 5 MG TABLET PO SCH ×2 (07:53→20:07)
[2020-06-30] MEDS: allopurinoL 100 MG TAB PO SCH (07:54)
[2020-06-30] MEDS: METHYLPREDNISOLONE 125 MG INJ IV SCH ×2 (07:54→20:08)
[2020-06-30] MEDS: NYSTATIN 500,000 UNIT/5 ML UDC PO SCH ×3 (07:54→20:07)
[2020-06-30] MEDS: TORSEMIDE 20 MG TAB PO SCH (07:56)
[2020-06-30] MEDS: DOXYCYCLINE 100 MG CAP PO SCH ×2 (07:57→20:07)
--- NOTE | 2020-06-30 08:35 | P.PN ---
Subjective Date of Service: 06/30/20 Chief Complaint: Respiratory failure Subjective: Improving (feels slightly better this morning. on 85% FiO2. BP stable. eating ok, voiding ok, reports last BM was 1-2 days ago and small. occasional coughing fits. mouth/throat feeling better) Review of Systems 10-point ROS is otherwise unremarkable Physical Examination - Vital Signs Temperature: 96.9 F Blood Pressure: 126/90 Pulse: 70 Respirations: 17 Pulse Ox (%): 92 Assessment & Plan Physician Review Additional Text: Physical Exam General: Alert, In no apparent distress, Oriented x3 HEENT: Normal conjunctiva, sclerae anicteric Pulm: nonlabored respirations on 85% FIo2 - HFNC CV: irregular rhythm, no edema Abd: soft, non-tender, non-distended Integumentary: No rashes Neurolo: normal affect, moves all extremities Problem List: acute respiratory failure with hypoxia secondary to COVID-19 pneumonia Chronic Diastolic CHF DM2, non-insulin dependent Congenital Heart Defect, s/p VSD repair, pacemaker/defibrillator h/o Afib/Aflutter Hypothyroidism -wean O2 as tolerated, currently on HFNC. Pulmonary is following / assisting with management -continue IV Solu-medrol, vitamin supplementation. s/p ivermectin, remdesevir -requried levophed briefly last week, BP stable -Sputum culture is growing pansensitive Staph aureus. Was on levaquin but switched to Doxy on 06/29 given aflutter / pt on amiodarone -continue Eliquis for thromboembolism prophylaxis. -Insulin sliding scale and Lantus insulin for glucose management. - glc better this morning, will adjust as needed -continue home medications -ferritin remains elevated, CRP improving -overall seems to be improving slowly -stool softener ordered VTE: Eliquis Code: full Dispo: anticipate dc home in several days, will likely need home O2 Time Spent Managing Pts Care (In Minutes): 40
--- NOTE | 2020-06-30 12:35 | P.PN ---
Subjective Date of Service: 06/30/20 Chief Complaint: Respiratory failure Subjective: Improving (Gradually improving oxygen requirements are declining) Review of Systems General: Weakness Respiratory: Shortness of Breath Physical Examination - Vital Signs Temperature: 96.9 F Blood Pressure: 108/75 Pulse: 61 Respirations: 13 Pulse Ox (%): 93 Assessment & Plan - Problems (Diagnosis) (1) Pneumonia due to COVID-19 virus Current Visit: Yes Status: Acute Plan: Patient is improving oxygen requirements are declining no change continue with present treatment DC torsemide continue with spironolactone normal left ventricular function severe diastolic dysfunction labs reviewed
[2020-06-30] MEDS: DOCUSATE NA 100 MG CAP PO PRN (17:00)
[2020-06-30] MEDS: BENZONATATE 100 MG CAP PO PRN (20:07)
[2020-06-30] MEDS: INSULIN GLARGINE 100 UNITS/ML SQ SCH (20:09)
[2020-07-01] MEDS: HYDROCODONE/APAP 7.5/325 MG TAB PO PRN ×4 (04:36→22:01)
[2020-07-01] MEDS: LEVOTHYROXINE SOD 0.05 MG TABLET PO SCH (05:17)
[2020-07-01] MEDS: carvediloL 12.5 MG TAB PO SCH ×2 (05:17→17:25)
[2020-07-01 05:47] LABS: C-Reactive Protein 25.2 mg/L (<3.00); Ferritin 1397.7 ng/mL (26-388); Potassium 4.8 mmol/L (3.5-5.1)
[2020-07-01] MEDS: INSULIN -REGULAR HUMAN 50 UNIT/0.5 ML ML SQ SCH ×4 (07:30→20:16)
[2020-07-01] MEDS: SPIRONOLACTONE 25 MG TABLET PO SCH (08:17)
[2020-07-01] MEDS: VENLAFAXINE HCL XR 75 MG CAP PO SCH ×2 (08:17→20:14)
[2020-07-01] MEDS: ASPIRIN 81 MG CHEWABLE TABLET PO SCH (08:17)
[2020-07-01] MEDS: NYSTATIN 500,000 UNIT/5 ML UDC PO SCH ×3 (08:17→20:14)
[2020-07-01] MEDS: DOXYCYCLINE 100 MG CAP PO SCH ×2 (08:17→20:14)
[2020-07-01] MEDS: ATORVASTATIN 20 MG TAB PO SCH (08:18)
[2020-07-01] MEDS: APIXABAN 5 MG TABLET PO SCH ×2 (08:18→20:14)
[2020-07-01] MEDS: AMIODARONE HCL 200 MG TAB PO SCH (08:18)
[2020-07-01] MEDS: METHYLPREDNISOLONE 125 MG INJ IV SCH ×2 (08:19→20:14)
[2020-07-01] MEDS: allopurinoL 100 MG TAB PO SCH (08:19)
[2020-07-01] MEDS: PREGABALIN 150 MG CAP PO SCH ×2 (08:19→20:14)
--- NOTE | 2020-07-01 12:29 | P.PN ---
Subjective Date of Service: 07/01/20 Chief Complaint: Respiratory failure Subjective: Improving (Patient is improving oxygen requirements are declining) Review of Systems General: Weakness Respiratory: Shortness of Breath Physical Examination - Vital Signs Temperature: 98.2 F Blood Pressure: 112/60 Pulse: 81 Respirations: 14 Pulse Ox (%): 95 Assessment & Plan - Problems (Diagnosis) (1) Pneumonia due to COVID-19 virus Current Visit: Yes Status: Acute Plan: Respiratory failure oxygen requirements a steadily declining white count is lower chemistries reviewed no change in present medication
--- NOTE | 2020-07-01 14:10 | P.PN ---
Subjective Date of Service: 07/01/20 Chief Complaint: Respiratory failure Subjective: Improving (Feeling better, breathing more comfortably, reports general weakness from lying in bed. Passing flatus, no BM overnight. No nausea/vomiting. down to 80% FIo2) Review of Systems 10-point ROS is otherwise unremarkable Physical Examination - Vital Signs Temperature: 98.2 F Blood Pressure: 112/60 Pulse: 81 Respirations: 14 Pulse Ox (%): 95 Assessment & Plan Physician Review Additional Text: Physical Exam General: Alert, In no apparent distress, Oriented x3 HEENT: Normal conjunctiva, sclerae anicteric Pulm: nonlabored respirations on 80% FIo2 - HFNC CV: irregular rhythm, no edema Abd: soft, non-tender, non-distended Integumentary: No rashes Neuro: normal affect, moves all extremities Problem List: acute respiratory failure with hypoxia secondary to COVID-19 pneumonia Chronic Diastolic CHF DM2, non-insulin dependent Congenital Heart Defect, s/p VSD repair, pacemaker/defibrillator h/o Afib/Aflutter Hypothyroidism -wean O2 as tolerated, currently on HFNC. Pulmonary is following / assisting with management -continue IV Solu-medrol, vitamin supplementation. s/p ivermectin, remdesevir -requried levophed briefly last week, BP stable -Sputum culture: pansensitive Staph aureus. Was on levaquin but switched to Doxy on 06/29 given aflutter / pt on amiodarone -continue Eliquis for thromboembolism prophylaxis. -Insulin sliding scale and Lantus insulin for glucose management. - glc better, adjust as needed -continue home medications -ferritin and CRP improving -overall seems to be improving slowly -continue stool softener VTE: Eliquis Code: full Dispo: anticipate dc home in several days, will likely need home O2 Time Spent Managing Pts Care (In Minutes): 35
[2020-07-01] MEDS: BENZONATATE 100 MG CAP PO PRN (14:35)
[2020-07-01] MEDS: DOCUSATE NA 100 MG CAP PO PRN (20:14)
[2020-07-01] MEDS: INSULIN GLARGINE 100 UNITS/ML SQ SCH (20:15)
[2020-07-02] MEDS: HYDROCODONE/APAP 7.5/325 MG TAB PO PRN ×4 (04:44→22:16)
[2020-07-02] MEDS: carvediloL 12.5 MG TAB PO SCH ×2 (05:41→17:11)
[2020-07-02] MEDS: LEVOTHYROXINE SOD 0.05 MG TABLET PO SCH (05:41)
[2020-07-02 05:47] LABS: Absolute Lymphocytes (CBC) 0.5 K/uL (0.7-4.9); Basophils % 0.4 % (0-1.3); Hematocrit 48.3 % (39.6-49.0); Lymphocytes % 3.5 % (15.3-44.8); MPV 11.9 fL (7.6-11.3); RBC Red Blood Cell Count 5.09 M/uL (4.33-5.43)
[2020-07-02 06:01] LABS: C-Reactive Protein 19.6 mg/L (<3.00); Magnesium 2.4 mg/dL (1.8-2.4); Potassium 5.1 mmol/L (3.5-5.1)
[2020-07-02 06:29] VITALS: BMI 25.4
[2020-07-02] MEDS: ASPIRIN 81 MG CHEWABLE TABLET PO SCH (07:38)
[2020-07-02] MEDS: allopurinoL 100 MG TAB PO SCH (07:38)
[2020-07-02] MEDS: ATORVASTATIN 20 MG TAB PO SCH (07:39)
[2020-07-02] MEDS: SPIRONOLACTONE 25 MG TABLET PO SCH (07:39)
[2020-07-02] MEDS: DOXYCYCLINE 100 MG CAP PO SCH ×2 (07:39→20:17)
[2020-07-02] MEDS: VENLAFAXINE HCL XR 75 MG CAP PO SCH ×2 (07:39→20:17)
[2020-07-02] MEDS: APIXABAN 5 MG TABLET PO SCH ×2 (07:39→20:17)
[2020-07-02] MEDS: AMIODARONE HCL 200 MG TAB PO SCH (07:40)
[2020-07-02] MEDS: PREGABALIN 150 MG CAP PO SCH ×2 (07:40→20:17)
[2020-07-02] MEDS: NYSTATIN 500,000 UNIT/5 ML UDC PO SCH ×3 (07:41→20:17)
[2020-07-02] MEDS: METHYLPREDNISOLONE 125 MG INJ IV SCH ×2 (07:41→20:16)
--- NOTE | 2020-07-02 07:44 | RAD REPORT ---
EXAM DESCRIPTION: [facility] Single View07/02/2020 6:20 am CLINICAL HISTORY: Chest pain COMPARISON: June 25 FINDINGS: Improvement in the right basilar opacities. Left basilar opacities are mostly obscured by the heart but there may also have been some improvement . The heart is mildly enlarged. Pacemaker leads in place IMPRESSION: Improvement in the right and probable improvement in the left basilar lung opacities lik rahul pneumonia
[2020-07-02] MEDS: INSULIN -REGULAR HUMAN 50 UNIT/0.5 ML ML SQ SCH ×4 (08:19→20:18)
[2020-07-02 09:59] LABS: Blood Morphology Comment NOT SEEN (NOT SEEN); Platelet Estimate ADEQ; White Blood Cell Scan OK (OK)
--- NOTE | 2020-07-02 11:29 | P.PN ---
Subjective Date of Service: 07/02/20 Chief Complaint: Respiratory failure Subjective: Improving (Slowly improving, FiO2 down the 75% this morning. Without any new complaints. Generalized weakness, tolerating food, passing flatus, no bowel movements, doesn't feel bloated/abdominal distension.) Review of Systems 10-point ROS is otherwise unremarkable Physical Examination - Vital Signs Temperature: 96.9 F Blood Pressure: 117/77 Pulse: 65 Respirations: 12 Pulse Ox (%): 94 Assessment & Plan Physician Review Additional Text: Physical Exam General: Alert, In no apparent distress, Oriented x3 HEENT: Normal conjunctiva, sclerae anicteric Pulm: nonlabored respirations on 75% FIo2 - HFNC CV: irregular rhythm, rate controlled, no edema Abd: soft, non-tender, non-distended Integumentary: No rashes Ext: b/l legs raised, slightly cool to touch Neuro: normal affect, moves all extremities Problem List: acute respiratory failure with hypoxia secondary to COVID-19 pneumonia Chronic Diastolic CHF DM2, non-insulin dependent Congenital Heart Defect, s/p VSD repair, pacemaker/defibrillator h/o Afib/Aflutter Hypothyroidism -wean O2 as tolerated, currently on HFNC. Pulmonary is following / assisting with management -continue IV Solu-medrol, vitamin supplementation. s/p ivermectin, remdesevir -requried levophed briefly last week, BP stable -Sputum culture: pansensitive Staph aureus. Was on levaquin but switched to Doxy on 06/29 given aflutter / pt on amiodarone -continue Eliquis for thromboembolism prophylaxis. -Insulin sliding scale and Lantus insulin for glucose management. - glc better, adjust as needed -continue home medications -ferritin and CRP improving, improving slowly -CXR this morning improved -continue stool softener VTE: Eliquis Code: full Dispo: anticipate dc home in several days, will likely need home O2 Time Spent Managing Pts Care (In Minutes): 35
--- NOTE | 2020-07-02 13:20 | P.PN ---
Subjective Date of Service: 07/02/20 Chief Complaint: Respiratory failure Subjective: Improving (Patient is gradually improving oxygen requirement setup declining is feeling better) Review of Systems General: Weakness Respiratory: Shortness of Breath Physical Examination - Vital Signs Temperature: 97.8 F Blood Pressure: 125/72 Pulse: 79 Respirations: 15 Pulse Ox (%): 93 Assessment & Plan - Problems (Diagnosis) (1) Pneumonia due to COVID-19 virus Current Visit: Yes Status: Acute Plan: Patient is gradually improving labs reviewed white count is mildly elevated once is below 50% can decrease his Solu-Medrol to 40 b.i.d.
[2020-07-02] MEDS: BENZONATATE 100 MG CAP PO PRN (20:16)
[2020-07-02] MEDS: DOCUSATE NA 100 MG CAP PO PRN (20:17)
[2020-07-02] MEDS: INSULIN GLARGINE 100 UNITS/ML SQ SCH (20:17)
[2020-07-02] MEDS: hydrOXYzine HCL 25 MG TAB PO PRN (23:07)
[2020-07-03] MEDS: HYDROCODONE/APAP 7.5/325 MG TAB PO PRN ×4 (03:58→21:50)
[2020-07-03 04:32] LABS: C-Reactive Protein 13.9 mg/L (<3.00); Ferritin 1307.8 ng/mL (26-388); Magnesium 2.3 mg/dL (1.8-2.4); Phosphorus 3.5 mg/dL (2.5-4.9); Potassium 5.1 mmol/L (3.5-5.1)
[2020-07-03] MEDS: carvediloL 12.5 MG TAB PO SCH ×2 (05:45→16:41)
[2020-07-03] MEDS: LEVOTHYROXINE SOD 0.05 MG TABLET PO SCH (05:45)
[2020-07-03] MEDS: INSULIN -REGULAR HUMAN 50 UNIT/0.5 ML ML SQ SCH ×4 (07:30→20:20)
[2020-07-03] MEDS: allopurinoL 100 MG TAB PO SCH (09:00)
[2020-07-03] MEDS: APIXABAN 5 MG TABLET PO SCH ×2 (09:28→20:17)
[2020-07-03] MEDS: DOXYCYCLINE 100 MG CAP PO SCH ×2 (09:28→20:16)
[2020-07-03] MEDS: ASPIRIN 81 MG CHEWABLE TABLET PO SCH (09:29)
[2020-07-03] MEDS: PREGABALIN 150 MG CAP PO SCH ×2 (09:29→20:31)
[2020-07-03] MEDS: SPIRONOLACTONE 25 MG TABLET PO SCH (09:30)
[2020-07-03] MEDS: NYSTATIN 500,000 UNIT/5 ML UDC PO SCH ×3 (09:30→20:16)
[2020-07-03] MEDS: VENLAFAXINE HCL XR 75 MG CAP PO SCH ×2 (09:31→20:16)
[2020-07-03] MEDS: ATORVASTATIN 20 MG TAB PO SCH (09:34)
[2020-07-03] MEDS: METHYLPREDNISOLONE 125 MG INJ IV SCH (09:34)
[2020-07-03] MEDS: AMIODARONE HCL 200 MG TAB PO SCH (09:34)
--- NOTE | 2020-07-03 12:58 | P.PN ---
Subjective Date of Service: 07/03/20 Chief Complaint: Respiratory failure Subjective: Improving (improving, FiO2 down to 60%, feeling better) Review of Systems 10-point ROS is otherwise unremarkable Physical Examination - Vital Signs Temperature: 97 F Blood Pressure: 114/57 Pulse: 59 Respirations: 20 Pulse Ox (%): 89 Assessment & Plan Physician Review Additional Text: Physical Exam General: Alert, In no apparent distress, Oriented x3 HEENT: Normal conjunctiva, sclerae anicteric Pulm: nonlabored respirations on 60% FIo2 - HFNC CV: paced, no edema Abd: soft, non-tender, non-distended Integumentary: No rashes Ext: b/l legs warm Neuro: normal affect, moves all extremities Problem List: acute respiratory failure with hypoxia secondary to COVID-19 pneumonia Chronic Diastolic CHF DM2, non-insulin dependent Congenital Heart Defect, s/p VSD repair, pacemaker/defibrillator h/o Afib/Aflutter Hypothyroidism -wean O2 as tolerated, currently on HFNC. Pulmonary is following / assisting with management -continue IV Solu-medrol, vitamin supplementation. s/p ivermectin, remdesevir -requried levophed briefly last week, BP stable -Sputum culture: pansensitive Staph aureus. Was on levaquin but switched to Doxy on 06/29 given aflutter / pt on amiodarone -continue Eliquis for thromboembolism prophylaxis. -Insulin sliding scale and Lantus insulin for glucose management. - glc better, adjust as needed -continue home medications -ferritin and CRP improving, improving slowly -continue stool softener VTE: Eliquis Code: full Dispo: anticipate dc home in ~48hrs, will likely need home O2 Time Spent Managing Pts Care (In Minutes): 35
--- NOTE | 2020-07-03 13:23 | P.PN ---
Subjective Date of Service: 07/03/20 Chief Complaint: Respiratory failure Subjective: Improving ( improving oxygen requirements are declining still short of breath) Review of Systems General: Weakness Respiratory: Shortness of Breath Physical Examination - Vital Signs Temperature: 97 F Blood Pressure: 114/57 Pulse: 59 Respirations: 20 Pulse Ox (%): 89 Assessment & Plan - Problems (Diagnosis) (1) Pneumonia due to COVID-19 virus Current Visit: Yes Status: Acute Plan: patient is improving currently on 60% FiO2 will try 4-6 L of nasal cannula oxygen chemistries reviewed white count is mildly elevated home oxygen ordered reduce dose of Solu-Medrol blood sugars elevated
[2020-07-03] MEDS: METHYLPREDNISOLONE 40 MG INJ IV SCH (20:17)
[2020-07-03] MEDS: INSULIN GLARGINE 100 UNITS/ML SQ SCH (20:31)
[2020-07-04] MEDS: DOCUSATE NA 100 MG CAP PO PRN (00:48)
[2020-07-04] MEDS: HYDROCODONE/APAP 7.5/325 MG TAB PO PRN ×4 (04:00→22:51)
[2020-07-04 05:08] LABS: Absolute Lymphocytes (CBC) 0.3 K/uL (0.7-4.9); Hematocrit 49.2 % (39.6-49.0); Lymphocytes % 2.2 % (15.3-44.8); MPV 12.4 fL (7.6-11.3); RBC Red Blood Cell Count 5.15 M/uL (4.33-5.43)
[2020-07-04 05:46] LABS: Albumin 1.8 g/dL (3.4-5.0); Bilirubin Total 0.9 mg/dL (0.2-1.0); C-Reactive Protein 13.5 mg/L (<3.00); Ferritin 1462.1 ng/mL (26-388); Protein, Total 5.2 g/dL (6.4-8.2)
[2020-07-04 05:49] LABS: Potassium 5.8 mmol/L (3.5-5.1)
[2020-07-04] MEDS: carvediloL 12.5 MG TAB PO SCH ×2 (06:17→17:07)
[2020-07-04] MEDS: LEVOTHYROXINE SOD 0.05 MG TABLET PO SCH (06:18)
[2020-07-04] MEDS ORDERED: SOD POLYSTYREN SUL 15 GM/60 ML UCUP PO ONE ×2 (06:19→16:54)
[2020-07-04] MEDS: INSULIN -REGULAR HUMAN 50 UNIT/0.5 ML ML SQ SCH ×4 (08:57→20:59)
[2020-07-04] MEDS: ASPIRIN 81 MG CHEWABLE TABLET PO SCH (08:58)
[2020-07-04] MEDS: VENLAFAXINE HCL XR 75 MG CAP PO SCH ×2 (08:58→20:58)
[2020-07-04] MEDS: NYSTATIN 500,000 UNIT/5 ML UDC PO SCH ×3 (08:58→20:58)
[2020-07-04] MEDS: DOXYCYCLINE 100 MG CAP PO SCH ×2 (08:59→20:58)
[2020-07-04] MEDS: allopurinoL 100 MG TAB PO SCH (08:59)
[2020-07-04] MEDS: AMIODARONE HCL 200 MG TAB PO SCH (08:59)
[2020-07-04] MEDS: APIXABAN 5 MG TABLET PO SCH ×2 (08:59→20:58)
[2020-07-04] MEDS: ATORVASTATIN 20 MG TAB PO SCH (09:00)
[2020-07-04] MEDS: PREGABALIN 150 MG CAP PO SCH ×2 (09:00→21:03)
[2020-07-04] MEDS: METHYLPREDNISOLONE 40 MG INJ IV SCH ×2 (09:00→20:58)
--- NOTE | 2020-07-04 09:20 | P.PN ---
Subjective Date of Service: 07/04/20 Chief Complaint: Respiratory failure Subjective: Improving (No acute events overnight, patient was weaned to 12-13 L NC yesterday. Reports he feels continued improvement slowly. Tolerating diet, still no BM several days, urinating without issue. Right femoral central line removed yesterday) Review of Systems 10-point ROS is otherwise unremarkable Physical Examination - Vital Signs Temperature: 96.8 F Blood Pressure: 122/56 Pulse: 77 Respirations: 18 Pulse Ox (%): 93 Assessment & Plan Physician Review Additional Text: Physical Exam General: Alert, In no apparent distress HEENT: Normal conjunctiva, sclerae anicteric Pulm: nonlabored respirations on 13 LNC CV: paced, Trace edema at ankles Abd: soft, non-tender, non-distended Integumentary: No rashes Problem List: acute respiratory failure with hypoxia secondary to COVID-19 pneumonia Chronic Diastolic CHF DM2, non-insulin dependent Congenital Heart Defect, s/p VSD repair, pacemaker/defibrillator h/o Afib/Aflutter Hypothyroidism hyperkalemia -wean O2 as tolerated. Pulmonary is following / assisting with management -continue IV Solu-medrol (down to 40 BID on 07/03), vitamin supplementation. s/p ivermectin, remdesevir -requried levophed briefly last week, BP stable. R femoral central line removed 07/03 -Sputum culture: pansensitive Staph aureus. Was on levaquin but switched to Doxy on 06/29 given aflutter / pt on amiodarone -continue Eliquis for thromboembolism prophylaxis. -Insulin sliding scale and Lantus insulin for glucose management. -adjust as needed -continue home medications -continue stool softener -hyperkalemia - stop pt's spironolactone, will give kayexalate x1 - pt without BM in several days, recheck at noon VTE: Eliquis Code: full Dispo: anticipate dc home in ~48-72hrs, will need home O2 Time Spent Managing Pts Care (In Minutes): 35
[2020-07-04 13:02] LABS: Potassium 5.6 mmol/L (3.5-5.1)
[2020-07-04] MEDS ORDERED: D50W 25 GM/50 ML SYRINGE IV PRN (16:52)
[2020-07-04] MEDS ORDERED: INSULIN -REGULAR HUMAN 50 UNIT/0.5 ML ML IV ONE (17:00)
[2020-07-04] MEDS: INSULIN GLARGINE 100 UNITS/ML SQ SCH (21:00)
[2020-07-05] MEDS: LEVOTHYROXINE SOD 0.05 MG TABLET PO SCH (05:03)
[2020-07-05] MEDS: carvediloL 12.5 MG TAB PO SCH ×2 (05:03→17:11)
[2020-07-05] MEDS: HYDROCODONE/APAP 7.5/325 MG TAB PO PRN ×4 (05:04→22:57)
[2020-07-05 05:15] LABS: BUN Blood Urea Nitrogen 30 mg/dL (7-18); Bicarbonate 32 mmol/L (21-32); Glucose Level 60 mg/dL (74-106); Potassium 4.7 mmol/L (3.5-5.1); Sodium Level 137 mmol/L (136-145)
[2020-07-05] MEDS: hydrOXYzine HCL 25 MG TAB PO PRN (06:38)
[2020-07-05] MEDS: INSULIN -REGULAR HUMAN 50 UNIT/0.5 ML ML SQ SCH ×4 (07:30→21:36)
[2020-07-05] MEDS: allopurinoL 100 MG TAB PO SCH (09:00)
[2020-07-05] MEDS: VENLAFAXINE HCL XR 75 MG CAP PO SCH ×2 (09:21→21:34)
[2020-07-05] MEDS: PREGABALIN 150 MG CAP PO SCH ×2 (09:21→21:35)
[2020-07-05] MEDS: APIXABAN 5 MG TABLET PO SCH ×2 (09:21→21:34)
[2020-07-05] MEDS: ASPIRIN 81 MG CHEWABLE TABLET PO SCH (09:22)
[2020-07-05] MEDS: DOXYCYCLINE 100 MG CAP PO SCH ×2 (09:22→21:34)
[2020-07-05] MEDS: ATORVASTATIN 20 MG TAB PO SCH (09:22)
[2020-07-05] MEDS: NYSTATIN 500,000 UNIT/5 ML UDC PO SCH (09:22)
[2020-07-05] MEDS: AMIODARONE HCL 200 MG TAB PO SCH (09:23)
[2020-07-05] MEDS: METHYLPREDNISOLONE 40 MG INJ IV SCH ×2 (09:23→21:35)
--- NOTE | 2020-07-05 14:09 | P.PN ---
Subjective Date of Service: 07/05/20 Chief Complaint: Respiratory failure Subjective: Improving (feeling ok, continues with generalized weakness, no BM yes, lots of flatus, no nausea/vomiting) Review of Systems 10-point ROS is otherwise unremarkable Physical Examination - Vital Signs Temperature: 96.9 F Blood Pressure: 96/51 Pulse: 59 Respirations: 17 Pulse Ox (%): 95 Assessment & Plan Physician Review Additional Text: Physical Exam General: Alert, In no apparent distress HEENT: Normal conjunctiva, sclerae anicteric Pulm: nonlabored respirations on 12 LNC CV: paced, Trace edema at ankles Abd: soft, non-tender, non-distended, +BS Integumentary: No rashes Neuro: 4+/5 str bilaterally in upper/lower extremities, slightly more weak against resistance in lower legs bilaterally, intact sensation Problem List: acute respiratory failure with hypoxia secondary to COVID-19 pneumonia Chronic Diastolic CHF DM2, non-insulin dependent Congenital Heart Defect, s/p VSD repair, pacemaker/defibrillator h/o Afib/Aflutter Hypothyroidism hyperkalemia -wean O2 as tolerated. Pulmonary is following / assisting with management -continue IV Solu-medrol (down to 40 BID on 07/03), vitamin supplementation. s/p ivermectin, remdesevir -requried levophed briefly last week, BP stable. R femoral central line removed 07/03 -Sputum culture: pansensitive Staph aureus. Was on levaquin but switched to Doxy on 06/29 given aflutter / pt on amiodarone -continue Eliquis for thromboembolism prophylaxis. -Insulin sliding scale and Lantus insulin for glucose management. -adjust as needed -continue home medications -continue stool softener -hyperkalemia improved - stopped spironolactone, received kayexalate x2 on 07/04 -PT/OT consulted VTE: Eliquis Code: full Dispo: anticipate dc home in ~48-72hrs, will need home O2 Time Spent Managing Pts Care (In Minutes): 35
[2020-07-05] MEDS: INSULIN GLARGINE 100 UNITS/ML SQ SCH (21:35)
[2020-07-06 04:58] LABS: Absolute Lymphocytes (CBC) 0.4 K/uL (0.7-4.9); Basophils % 0.1 % (0-1.3); Hematocrit 51.5 % (39.6-49.0); MPV 12.1 fL (7.6-11.3); RBC Red Blood Cell Count 5.48 M/uL (4.33-5.43)
[2020-07-06] MEDS: LEVOTHYROXINE SOD 0.05 MG TABLET PO SCH (05:18)
[2020-07-06] MEDS: carvediloL 12.5 MG TAB PO SCH ×2 (05:18→19:41)
[2020-07-06] MEDS: HYDROCODONE/APAP 7.5/325 MG TAB PO PRN ×3 (05:19→18:31)
[2020-07-06 05:23] LABS: ALT/SGPT 36 U/L (12-78); AST/SGOT 24 U/L (15-37); Albumin 2.3 g/dL (3.4-5.0); Alkaline Phosphatase 109 U/L (45-117); BUN Blood Urea Nitrogen 27 mg/dL (7-18); Bicarbonate 31 mmol/L (21-32); Bilirubin Total 0.9 mg/dL (0.2-1.0); Glucose Level 124 mg/dL (74-106); Protein, Total 6.7 g/dL (6.4-8.2); Sodium Level 136 mmol/L (136-145)
[2020-07-06 05:35] LABS: Blood Morphology Comment NOT SEEN (NOT SEEN); Platelet Estimate DECR
[2020-07-06] MEDS: INSULIN -REGULAR HUMAN 50 UNIT/0.5 ML ML SQ SCH ×4 (07:30→22:26)
--- NOTE | 2020-07-06 08:05 | RAD REPORT ---
EXAM DESCRIPTION: RAD - Chest Single View - 07/06/2020 7:01 am CLINICAL HISTORY: Hypoxia, pneumonia COMPARISON: Portable July 02, CT chest June 25 TECHNIQUE: AP portable chest image was obtained 07/06/2020 7:01 am . FINDINGS: Right base infiltrate and/ or atelectasis pattern similar to comparison. Extensive left ba se opacification is still present obscuring the left hemidiaphragm and left heart border. No new or p rogressive failure or volume overload. Defibrillator is in place. Heart and vasculature are normal. N o measurable pleural effusion and no pneumothorax. No acute bony abnormality seen. No acute aortic fi ndings suspected. IMPRESSION: Left greater than right lung base infiltrate pattern similar to July 02.
[2020-07-06] MEDS: allopurinoL 100 MG TAB PO SCH (09:00)
[2020-07-06] MEDS: APIXABAN 5 MG TABLET PO SCH ×2 (09:21→22:24)
[2020-07-06] MEDS: METHYLPREDNISOLONE 40 MG INJ IV SCH ×2 (09:21→22:24)
[2020-07-06] MEDS: PREGABALIN 150 MG CAP PO SCH ×2 (09:21→22:25)
[2020-07-06] MEDS: AMIODARONE HCL 200 MG TAB PO SCH (09:21)
[2020-07-06] MEDS: DOXYCYCLINE 100 MG CAP PO SCH ×2 (09:21→22:25)
[2020-07-06] MEDS: ASPIRIN 81 MG CHEWABLE TABLET PO SCH (09:21)
[2020-07-06] MEDS: ATORVASTATIN 20 MG TAB PO SCH (09:22)
[2020-07-06] MEDS: VENLAFAXINE HCL XR 75 MG CAP PO SCH ×2 (09:22→22:25)
--- NOTE | 2020-07-06 09:24 | RAD REPORT ---
EXAM DESCRIPTION: CT - Head Brain Wo Cont - 07/06/2020 9:01 am CLINICAL HISTORY: new leg weakness since admission, eval for stroke COMPARISON: Chest Single View dated 07/06/2020 TECHNIQUE: Axial 5 mm thick images of the head were obtained without IV contrast. MRI imaging could not be performed due the presence of a pacemaker. All CT scans are performed using dose optimization technique as appropriate and may include automated exposure control or mA/KV adjustment according to patient size. FINDINGS: No intracranial hemorrhage, mass, edema or shift of mid-line structures. No acute cortical based infarction identified. No cortical edema or sulcal effacement identifiable. An 8 millimeter fo cus of decreased attenuation is present in the deep periventricular white matter right frontal lobe. A smaller similar focus is present in the left cerebral hemisphere. These are probably old ischemic i nsults. An ischemic injury in this location would not likely yield lower extremity motor sensory defi cits. No abnormal extra-axial fluid collections. Ventricles are normal. Mastoid air cells and visualized portions of the paranasal sinuses are clear. No acute bony findings. IMPRESSION: No hemorrhage or mass lesions seen. No acute infarction identifiable. Small focal areas of diminished attenuation in the bilateral deep periventricular frontal lobe white matter are probably old ischemic insults. Lower extremity motor sensory deficits would not be expect ed with ischemic injury in this portion of the brain.
[2020-07-06] MEDS: allopurinoL 300 MG TAB PO SCH (12:40)
[2020-07-06] MEDS ORDERED: NA CHLORIDE 0.9% 500 ML IV ONE (12:54)
--- NOTE | 2020-07-06 12:57 | P.PN ---
Subjective Date of Service: 07/06/20 Chief Complaint: Respiratory failure Subjective: Improving (Patient is improving oxygen requirements are decreasing still shortness of breath on exertion) Review of Systems General: Weakness ENT: Nose Discharge Respiratory: Shortness of Breath Physical Examination - Vital Signs Temperature: 96.8 F Blood Pressure: 110/62 Pulse: 61 Respirations: 18 Pulse Ox (%): 93 Assessment & Plan - Problems (Diagnosis) (1) Pneumonia due to COVID-19 virus Current Visit: Yes Status: Acute Plan: Respiratory failure patient is improving continue to titrate O2 down to a sat of for for L possible discharge labs reviewed
[2020-07-06] MEDS ORDERED: NA CHLORIDE 0.9% 1,000 ML IV SCH (14:00)
[2020-07-06 16:35] LABS: Magnesium 2.1 mg/dL (1.8-2.4); Potassium 4.8 mmol/L (3.5-5.1)
[2020-07-06 16:39] LABS: Urine Appearance CLEAR (Clear); Urine Bilirubin NEGATIVE (Negative); Urine Blood NEGATIVE (Negative); Urine Color DK YELLOW (Yellow); Urine Glucose 1+ (Negative); Urine Protein TRACE (Negative); Urine Specific Gravity 1.025 (1.005-1.030)
[2020-07-06 16:41] LABS: Urine Microscopic Reflex ORDER UMIC
[2020-07-06 16:49] LABS: Urine Bacteria <20 /HPF (NONE SEEN); Urine RBC <5 /HPF (NONE SEEN)
[2020-07-06 16:50] LABS: Urine Mucus 2+ /HPF (NONE SEEN)
--- NOTE | 2020-07-06 17:13 | P.PN ---
Subjective Date of Service: 07/06/20 Chief Complaint: Respiratory failure Subjective: Improving (Feeling well, continues with generalized weaknessworse in the lower extremities, some shortness of breath, no chest pain, no abdominal pain) Review of Systems 10-point ROS is otherwise unremarkable Physical Examination - Vital Signs Temperature: 96.8 F Blood Pressure: 110/62 Pulse: 61 Respirations: 18 Pulse Ox (%): 93 Assessment & Plan Physician Review Additional Text: Physical Exam General: Alert, In no apparent distress HEENT: Normal conjunctiva, sclerae anicteric Pulm: nonlabored respirations on 10 LNC CV: paced, no edema Abd: soft, non-tender, non-distended, +BS Integumentary: No rashes Neuro: 4+/5 str bilaterally in upper/lower extremities, slightly more weak against resistance in lower legs bilaterally, intact sensation bilaterally Problem List: acute respiratory failure with hypoxia secondary to COVID-19 pneumonia Chronic Diastolic CHF DM2, non-insulin dependent Congenital Heart Defect, s/p VSD repair, pacemaker/defibrillator h/o Afib/Aflutter Hypothyroidism hyperkalemia -wean O2 as tolerated. Pulmonary is following / assisting with management -continue IV Solu-medrol (down to 40 BID on 07/03), vitamin supplementation. s/p ivermectin, remdesevir -requried levophed briefly last week, BP stable. R femoral central line removed 07/03 -Sputum culture: pansensitive Staph aureus. Was on levaquin but switched to Doxy on 06/29 given aflutter / pt on amiodarone -continue Eliquis for thromboembolism prophylaxis. -Insulin sliding scale and Lantus insulin for glucose management. -adjust as needed -continue home medications -continue stool softener -hyperkalemia improved - stopped spironolactone, received kayexalate x2 on 07/04 -PT/OT consulted -weakness is bilateral but worse on the right, CT head ordered to rule out possible stroke -unlikely based on exam, but he is at increased risk given COVID-19 infection, if negative will consider MRI VTE: Eliquis Code: full Dispo: anticipate dc home in ~72hrs, will need home O2 After long discussion with patient, and his brother Shereen patient continues with this current level of function he may not have enough care at home since he only lives with his . Patient states he will discuss with his if he does not have improvement in his functional status, and may be amenable to SNF Time Spent Managing Pts Care (In Minutes): 35
[2020-07-06] MEDS: INSULIN GLARGINE 100 UNITS/ML SQ SCH (22:26)
[2020-07-07] MEDS: HYDROCODONE/APAP 7.5/325 MG TAB PO PRN ×4 (00:19→17:47)
[2020-07-07] MEDS: carvediloL 12.5 MG TAB PO SCH ×2 (05:59→17:47)
[2020-07-07] MEDS: LEVOTHYROXINE SOD 0.05 MG TABLET PO SCH (06:00)
[2020-07-07] MEDS: AMIODARONE HCL 200 MG TAB PO SCH (09:21)
[2020-07-07] MEDS: VENLAFAXINE HCL XR 75 MG CAP PO SCH ×2 (09:37→20:55)
[2020-07-07] MEDS: PREGABALIN 150 MG CAP PO SCH ×2 (09:37→20:55)
[2020-07-07] MEDS: INSULIN -REGULAR HUMAN 50 UNIT/0.5 ML ML SQ SCH ×4 (09:37→20:56)
[2020-07-07] MEDS: ASPIRIN 81 MG CHEWABLE TABLET PO SCH (09:37)
[2020-07-07] MEDS: METHYLPREDNISOLONE 40 MG INJ IV SCH ×2 (09:37→20:55)
[2020-07-07] MEDS: ATORVASTATIN 20 MG TAB PO SCH (09:37)
[2020-07-07] MEDS: DOXYCYCLINE 100 MG CAP PO SCH ×2 (09:37→20:55)
[2020-07-07] MEDS: allopurinoL 300 MG TAB PO SCH (09:37)
[2020-07-07] MEDS: APIXABAN 5 MG TABLET PO SCH ×2 (09:37→20:55)
--- NOTE | 2020-07-07 15:28 | P.PN ---
Subjective Date of Service: 07/07/20 Chief Complaint: Respiratory failure Patient doing better. He is tolerating 5 L of oxygen by nasal cannula. Physical Examination - Vital Signs Temperature: 96.9 F Blood Pressure: 115/61 Pulse: 84 Respirations: 16 Pulse Ox (%): 92 - Physical Exam General: Alert, In no apparent distress HEENT: Other (Oxygen by nasal cannula) Neck: JVD not distended Respiratory: Other (Nonlabored breathing) Cardiovascular: No edema, Regular rate/rhythm, Normal S1 S2 Gastrointestinal: Soft and benign, Non-distended Musculoskeletal: No swelling Integumentary: No rashes Neurological: Normal strength at 5/5 x4 extr Assessment And Plan - Current Problems (Diagnosis) (1) Pneumonia due to COVID-19 virus Current Visit: Yes Status: Acute (2) Acute respiratory failure with hypoxia Current Visit: Yes Status: Acute (3) Chronic systolic (congestive) heart failure Current Visit: Yes Status: Chronic (4) Diabetes Current Visit: No Status: Chronic Physician Review Additional Text: Physical Exam General: Alert, In no apparent distress HEENT: Normal conjunctiva, sclerae anicteric Pulm: nonlabored respirations on 10 LNC CV: paced, no edema Abd: soft, non-tender, non-distended, +BS Integumentary: No rashes Neuro: 4+/5 str bilaterally in upper/lower extremities, slightly more weak against resistance in lower legs bilaterally, intact sensation bilaterally Problem List: acute respiratory failure with hypoxia secondary to COVID-19 pneumonia Chronic Diastolic CHF DM2, non-insulin dependent Congenital Heart Defect, s/p VSD repair, pacemaker/defibrillator h/o Afib/Aflutter Hypothyroidism hyperkalemia -wean O2 as tolerated. Pulmonary is following / assisting with management -continue IV Solu-medrol (down to 40 BID on 07/03), vitamin supplementation. s/p ivermectin, remdesevir -requried levophed briefly last week, BP stable. R femoral central line removed 07/03 -Sputum culture: pansensitive Staph aureus. Was on levaquin but switched to Doxy on 06/29 given aflutter / pt on amiodarone -continue Eliquis for thromboembolism prophylaxis. -Insulin sliding scale and Lantus insulin for glucose management. -adjust as needed -continue home medications -continue stool softener -hyperkalemia improved - spironolactone d/c, received kayexalate x2 on 07/04 -PT/OT consulted -weakness is bilateral but worse on the right, CT head negative for acute stroke. -weakness most likely due to deconditioning. -patient looking at home with home health for PT. VTE: Eliquis Code: full Dispo: Home with home health.
[2020-07-07] MEDS: INSULIN GLARGINE 100 UNITS/ML SQ SCH (20:56)
[2020-07-08] MEDS: HYDROCODONE/APAP 7.5/325 MG TAB PO PRN ×5 (00:13→23:45)
[2020-07-08 03:46] LABS: Absolute Lymphocytes (CBC) 0.3 K/uL (0.7-4.9); Basophils % 0.2 % (0-1.3); Hematocrit 42.4 % (39.6-49.0); Lymphocytes % 1.9 % (15.3-44.8); MPV 11.9 fL (7.6-11.3); RBC Red Blood Cell Count 4.55 M/uL (4.33-5.43)
[2020-07-08 04:44] LABS: ALT/SGPT 30 U/L (12-78); AST/SGOT 28 U/L (15-37); Albumin 1.8 g/dL (3.4-5.0); Alkaline Phosphatase 83 U/L (45-117); BUN Blood Urea Nitrogen 25 mg/dL (7-18); Bicarbonate 28 mmol/L (21-32); Bilirubin Total 0.8 mg/dL (0.2-1.0); Ferritin 1523.9 ng/mL (26-388); Glucose Level 106 mg/dL (74-106); Potassium 4.5 mmol/L (3.5-5.1); Protein, Total 5.4 g/dL (6.4-8.2); Sodium Level 137 mmol/L (136-145)
[2020-07-08] MEDS: DOCUSATE NA 100 MG CAP PO PRN (05:03)
[2020-07-08] MEDS: carvediloL 12.5 MG TAB PO SCH ×2 (05:03→17:31)
[2020-07-08] MEDS: LEVOTHYROXINE SOD 0.05 MG TABLET PO SCH (05:04)
[2020-07-08] MEDS: INSULIN -REGULAR HUMAN 50 UNIT/0.5 ML ML SQ SCH ×4 (07:30→21:00)
[2020-07-08] MEDS: VENLAFAXINE HCL XR 75 MG CAP PO SCH ×2 (08:54→21:35)
[2020-07-08] MEDS: ASPIRIN 81 MG CHEWABLE TABLET PO SCH (08:55)
[2020-07-08] MEDS: APIXABAN 5 MG TABLET PO SCH ×2 (08:55→21:35)
[2020-07-08] MEDS: PREGABALIN 150 MG CAP PO SCH ×2 (08:55→21:35)
[2020-07-08] MEDS: allopurinoL 300 MG TAB PO SCH (08:55)
[2020-07-08] MEDS: METHYLPREDNISOLONE 40 MG INJ IV SCH ×2 (08:55→21:37)
[2020-07-08] MEDS: DOXYCYCLINE 100 MG CAP PO SCH ×2 (08:55→21:35)
[2020-07-08] MEDS: ATORVASTATIN 20 MG TAB PO SCH (08:55)
[2020-07-08] MEDS: NYSTATIN 500,000 UNIT/5 ML UDC PO SCH ×3 (08:56→21:35)
[2020-07-08] MEDS: ASPIRIN 325 MG TAB PO SCH (09:00)
[2020-07-08] MEDS: D50W 25 GM/50 ML VIAL IV PRN ×2 (09:22→10:25)
[2020-07-08] MEDS: AMIODARONE HCL 200 MG TAB PO SCH (09:23)
--- NOTE | 2020-07-08 18:58 | P.PN ---
Subjective Date of Service: 07/08/20 Chief Complaint: Respiratory failure Patient doing better. He is tolerating 5 L of oxygen by nasal cannula. Patient was borderline hypoglycemia today. He reports decreased appetite. Physical Examination - Vital Signs Temperature: 97.4 F Blood Pressure: 128/82 Pulse: 117 Respirations: 18 Pulse Ox (%): 88 - Physical Exam General: Alert, In no apparent distress HEENT: Other (Oral candidiasis) Respiratory: Other (No labored breathing) Cardiovascular: No edema, Regular rate/rhythm Gastrointestinal: Soft and benign, Non-distended Musculoskeletal: No swelling Integumentary: No rashes Neurological: Normal strength at 5/5 x4 extr Assessment And Plan - Current Problems (Diagnosis) (1) Pneumonia due to COVID-19 virus Current Visit: Yes Status: Acute (2) Acute respiratory failure with hypoxia Current Visit: Yes Status: Acute (3) Chronic systolic (congestive) heart failure Current Visit: Yes Status: Chronic (4) Diabetes Current Visit: No Status: Chronic (5) Oral candidiasis Current Visit: Yes Status: Acute Physician Review Additional Text: Problem List: acute respiratory failure with hypoxia secondary to COVID-19 pneumonia Chronic Diastolic CHF DM2, non-insulin dependent Congenital Heart Defect, s/p VSD repair, pacemaker/defibrillator h/o Afib/Aflutter Hypothyroidism hyperkalemia -wean O2 as tolerated. Pulmonary is following / assisting with management -continue IV Solu-medrol (down to 40 BID on 07/03), vitamin supplementation. s/p ivermectin, remdesevir -requried levophed briefly last week, BP stable. R femoral central line removed 07/03 -Sputum culture: pansensitive Staph aureus. Was on levaquin but switched to Doxy on 06/29 given aflutter / pt on amiodarone -continue Eliquis for thromboembolism prophylaxis. -Insulin sliding scale and Lantus insulin for glucose management. -adjust as needed -continue home medications -continue stool softener -hyperkalemia improved - spironolactone d/c, received kayexalate x2 on 07/04 -PT/OT consulted -Has weakness most likely due to deconditioning. -patient looking at home with home health for PT. -start oral Diflucan for oral candidiasis. It appears to Nystatin was ineffective. VTE: Eliquis Code: full Dispo: Home with home health.
[2020-07-08] MEDS: FLUCONAZOLE 100 MG TAB PO SCH (21:35)
[2020-07-08] MEDS: INSULIN GLARGINE 100 UNITS/ML SQ SCH (21:36)
[2020-07-09 04:05] LABS: Absolute Lymphocytes (CBC) 0.2 K/uL (0.7-4.9); Basophils % 0.3 % (0-1.3); Hematocrit 41.8 % (39.6-49.0); Lymphocytes % 1.5 % (15.3-44.8); MPV 11.5 fL (7.6-11.3); RBC Red Blood Cell Count 4.51 M/uL (4.33-5.43)
[2020-07-09 04:36] LABS: BUN Blood Urea Nitrogen 25 mg/dL (7-18); Bicarbonate 26 mmol/L (21-32); Ferritin 2484.5 ng/mL (26-388); Glucose Level 134 mg/dL (74-106); Potassium 4.9 mmol/L (3.5-5.1); Sodium Level 135 mmol/L (136-145)
[2020-07-09] MEDS: LEVOTHYROXINE SOD 0.05 MG TABLET PO SCH (06:00)
[2020-07-09] MEDS: HYDROCODONE/APAP 7.5/325 MG TAB PO PRN ×3 (06:16→22:34)
[2020-07-09] MEDS: carvediloL 12.5 MG TAB PO SCH (06:17)
[2020-07-09] MEDS: INSULIN -REGULAR HUMAN 50 UNIT/0.5 ML ML SQ SCH ×4 (07:30→21:26)
[2020-07-09] MEDS: PREGABALIN 150 MG CAP PO SCH ×2 (08:38→21:23)
[2020-07-09] MEDS: ATORVASTATIN 20 MG TAB PO SCH (08:38)
[2020-07-09] MEDS: ASPIRIN 325 MG TAB PO SCH (08:38)
[2020-07-09] MEDS: VENLAFAXINE HCL XR 75 MG CAP PO SCH ×2 (08:38→21:23)
[2020-07-09] MEDS: allopurinoL 300 MG TAB PO SCH (08:38)
[2020-07-09] MEDS: DOXYCYCLINE 100 MG CAP PO SCH ×2 (08:38→21:22)
[2020-07-09] MEDS: APIXABAN 5 MG TABLET PO SCH ×2 (08:38→21:22)
[2020-07-09] MEDS: AMIODARONE HCL 200 MG TAB PO SCH (08:38)
[2020-07-09] MEDS: METHYLPREDNISOLONE 40 MG INJ IV SCH ×2 (08:39→21:23)
[2020-07-09] MEDS: NYSTATIN 500,000 UNIT/5 ML UDC PO SCH ×3 (08:39→21:23)
[2020-07-09] MEDS: MIDODRINE HCL 5 MG TABLET PO SCH ×2 (09:51→17:51)
--- NOTE | 2020-07-09 10:04 | P.PN ---
Subjective Date of Service: 07/09/20 Chief Complaint: Respiratory failure Subjective: No new changes (-seen today, frustrated with non improving status - State oral thrush improving) Physical Examination - Vital Signs Temperature: 97.7 F Blood Pressure: 129/80 Pulse: 114 Respirations: 16 Pulse Ox (%): 88 - Physical Exam General: Alert, In no apparent distress, Oriented x3 HEENT: Atraumatic, Normocephalic Neck: Supple, 2+ carotid pulse no bruit Respiratory: Diminished, Dull Cardiovascular: Normal pulses, Regular rate/rhythm, Normal S1 S2, Edema Gastrointestinal: Normal bowel sounds, Soft and benign, Non-distended, No tenderness Musculoskeletal: No clubbing, Swelling Neurological: Normal speech, Normal strength at 5/5 x4 extr, Normal tone Assessment And Plan - Current Problems (Diagnosis) (1) Acute respiratory failure with hypoxia Current Visit: Yes Status: Acute (2) Oral candidiasis Current Visit: Yes Status: Acute (3) Pneumonia due to COVID-19 virus Current Visit: Yes Status: Acute (4) Chronic systolic (congestive) heart failure Current Visit: Yes Status: Chronic (5) Cardiomyopathy as manifestation of underlying disease Onset Date: 10/07/15 Current Visit: No Status: Acute (6) History of implantable cardioverter-defibrillator (ICD) placement Onset Date: 10/07/15 Current Visit: No Status: Acute (7) Low blood pressure Onset Date: 08/28/15 Current Visit: No Status: Acute Physician Review Additional Text: Problem List: acute respiratory failure with hypoxia secondary to COVID-19 pneumonia Chronic Diastolic CHF DM2, non-insulin dependent Congenital Heart Defect, s/p VSD repair, pacemaker/defibrillator h/o Afib/Aflutter Hypothyroidism hyperkalemia PLAN Blood pressure borderline low today, we had midodrine See mild fluid overload, pulmonary congestion may be contributing to persistent hypoxia on O2 requirements We aggressively use Lasix to ensure diureses -keep MEP greater than 70 -continue IV Solu-Medrol -wean O2 as tolerated-still requiring 6 L -oral candidiasis improving, continue Diflucan, nystatin was ineffective -Continue insulin sliding scale and Lantus for glucose control -Follow pulmonary -continue IV Solu-medrol (down to 40 BID on 07/03), vitamin supplementation. s/p ivermectin, remdesevir -requried levophed briefly last week, BP stable. R femoral central line removed 07/03 -Sputum culture: pansensitive Staph aureus. Was on levaquin but switched to Doxy on 06/29 given aflutter / pt on amiodarone -continue Eliquis for thromboembolism prophylaxis. - spironolactone d/c, received kayexalate x2 on 07/04 -PT/OT consulted VTE: Eliquis Code: full Dispo: Home with home health.
[2020-07-09] MEDS: BUMETANIDE 1 MG/4 ML VIAL IV SCH ×2 (12:24→21:39)
[2020-07-09 12:30] LABS: Arterial Blood Carboxyhemoglob 0.8 % (0-1.5); Blood Gas Oxyhemoglobin 87.4 % (94-97); Blood O2 Saturation 88.9 % (92-98.5)
[2020-07-09] MEDS ORDERED: MIDODRINE HCL 5 MG TABLET PO SCH (14:00)
[2020-07-09] MEDS: carvediloL 6.25 MG TAB PO SCH (17:50)
[2020-07-09] MEDS: FLUCONAZOLE 100 MG TAB PO SCH (21:21)
[2020-07-09] MEDS: INSULIN GLARGINE 100 UNITS/ML SQ SCH (21:25)
[2020-07-10] MEDS: MIDODRINE HCL 5 MG TABLET PO SCH ×3 (01:22→17:09)
[2020-07-10 04:36] LABS: Albumin 1.5 g/dL (3.4-5.0); Bilirubin Total 0.7 mg/dL (0.2-1.0); Potassium 4.3 mmol/L (3.5-5.1); Protein, Total 5.3 g/dL (6.4-8.2)
[2020-07-10] MEDS: carvediloL 6.25 MG TAB PO SCH ×2 (05:37→17:10)
[2020-07-10] MEDS: LEVOTHYROXINE SOD 0.05 MG TABLET PO SCH (05:38)
[2020-07-10] MEDS: BENZONATATE 100 MG CAP PO PRN (05:42)
[2020-07-10] MEDS: HYDROCODONE/APAP 7.5/325 MG TAB PO PRN ×3 (05:50→22:52)
[2020-07-10] MEDS: INSULIN -REGULAR HUMAN 50 UNIT/0.5 ML ML SQ SCH ×4 (07:30→21:27)
[2020-07-10] MEDS: BUMETANIDE 1 MG/4 ML VIAL IV SCH ×2 (08:36→21:25)
[2020-07-10] MEDS: METHYLPREDNISOLONE 40 MG INJ IV SCH ×2 (08:36→21:27)
[2020-07-10] MEDS: PREGABALIN 150 MG CAP PO SCH ×2 (08:37→21:27)
[2020-07-10] MEDS: APIXABAN 5 MG TABLET PO SCH ×2 (08:37→21:27)
[2020-07-10] MEDS: ASPIRIN 325 MG TAB PO SCH (08:37)
[2020-07-10] MEDS: allopurinoL 300 MG TAB PO SCH (08:37)
[2020-07-10] MEDS: ATORVASTATIN 20 MG TAB PO SCH (08:37)
[2020-07-10] MEDS: NYSTATIN 500,000 UNIT/5 ML UDC PO SCH ×3 (08:37→21:26)
[2020-07-10] MEDS: VENLAFAXINE HCL XR 75 MG CAP PO SCH ×2 (08:37→21:27)
[2020-07-10] MEDS: DOXYCYCLINE 100 MG CAP PO SCH (08:38)
[2020-07-10] MEDS: AMIODARONE HCL 200 MG TAB PO SCH (08:38)
--- NOTE | 2020-07-10 09:23 | P.PN ---
Subjective Date of Service: 07/09/20 Chief Complaint: Respiratory failure Subjective: Improving (Patient is improving the nasal cannula oxygen) Review of Systems General: Weakness Respiratory: Shortness of Breath Physical Examination - Vital Signs Temperature: 96.0 F Blood Pressure: 125/81 Pulse: 121 Respirations: 19 Pulse Ox (%): 90 Assessment & Plan - Problems (Diagnosis) (1) Pneumonia due to COVID-19 virus Current Visit: Yes Status: Acute Plan: Respiratory failure reason nasal cannula oxygen continue to titrate his oxygen levels down discuss with the patient patient is still hypoxic currently on 8 L
--- NOTE | 2020-07-10 17:16 | P.PN ---
Subjective Date of Service: 07/10/20 Chief Complaint: Respiratory failure Patient is requiring more oxygen. Oxygen is up to 10 L by nasal cannula. Physical Examination - Vital Signs Temperature: 97.3 F Blood Pressure: 136/72 Pulse: 121 Respirations: 20 Pulse Ox (%): 89 - Physical Exam General: Alert, In no apparent distress, Other HEENT: Other (Oral trials significantly improved.) Neck: JVD not distended Respiratory: Other (Nonlabored breathing) Cardiovascular: No edema, Regular rate/rhythm Gastrointestinal: Soft and benign, Non-distended Musculoskeletal: No swelling Integumentary: No rashes Neurological: Other (No focal motor deficit.) Assessment And Plan - Current Problems (Diagnosis) (1) Pneumonia due to COVID-19 virus Current Visit: Yes Status: Acute (2) Acute respiratory failure with hypoxia Current Visit: Yes Status: Acute (3) Chronic systolic (congestive) heart failure Current Visit: Yes Status: Chronic (4) Diabetes Current Visit: No Status: Chronic (5) Oral candidiasis Current Visit: Yes Status: Acute Physician Review Additional Text: Problem List: acute respiratory failure with hypoxia secondary to COVID-19 pneumonia Chronic Diastolic CHF DM2, non-insulin dependent Congenital Heart Defect, s/p VSD repair, pacemaker/defibrillator h/o Afib/Aflutter Hypothyroidism hyperkalemia PLAN -pulmonary congestion may be contributing to persistent hypoxia on O2 requirements -continue IV Bumex -keep MEP greater than 70 -continue IV Solu-Medrol -wean O2 as tolerated. -oral candidiasis improving, continue Diflucan, nystatin was ineffective -Continue insulin sliding scale and Lantus for glucose control -pulmonary is following. -continue IV Solu-medrol, vitamin supplementation. s/p ivermectin, remdesevir -requried levophed briefly last week, BP stable. R femoral central line removed 07/03 -Sputum culture: pansensitive Staph aureus. Was on levaquin but switched to Doxy on 06/29 given aflutter / pt on amiodarone -continue Eliquis for thromboembolism prophylaxis. - spironolactone discontinued. He received kayexalate x2 on 07/04 -PT VTE: Eliquis Code: full Dispo: Home with home health.
[2020-07-10] MEDS: CEPACOL LOZENGES PO PRN (18:18)
[2020-07-10] MEDS: FLUCONAZOLE 100 MG TAB PO SCH (21:26)
[2020-07-10] MEDS: INSULIN GLARGINE 100 UNITS/ML SQ SCH (21:27)
[2020-07-11] MEDS: MIDODRINE HCL 5 MG TABLET PO SCH ×3 (02:14→16:49)
[2020-07-11 04:44] LABS: Absolute Lymphocytes (CBC) 0.3 K/uL (0.7-4.9); Basophils % 0.1 % (0-1.3); Hematocrit 43.8 % (39.6-49.0); Lymphocytes % 5.8 % (15.3-44.8); MPV 11.9 fL (7.6-11.3); RBC Red Blood Cell Count 4.74 M/uL (4.33-5.43)
[2020-07-11 05:01] LABS: Albumin 1.5 g/dL (3.4-5.0); Bilirubin Total 0.6 mg/dL (0.2-1.0); Potassium 4.7 mmol/L (3.5-5.1); Protein, Total 5.7 g/dL (6.4-8.2)
[2020-07-11 05:52] LABS: Blood Morphology Comment NOT SEEN (NOT SEEN); Platelet Estimate DECR; Platelets, Giant FEW
[2020-07-11] MEDS: HYDROCODONE/APAP 7.5/325 MG TAB PO PRN ×2 (05:56→18:16)
[2020-07-11] MEDS: carvediloL 6.25 MG TAB PO SCH ×2 (05:56→17:38)
[2020-07-11] MEDS: LEVOTHYROXINE SOD 0.05 MG TABLET PO SCH (06:00)
[2020-07-11] MEDS: INSULIN -REGULAR HUMAN 50 UNIT/0.5 ML ML SQ SCH ×4 (07:30→21:00)
[2020-07-11] MEDS: D50W 25 GM/50 ML VIAL IV PRN (07:52)
[2020-07-11] MEDS: ATORVASTATIN 20 MG TAB PO SCH (08:08)
[2020-07-11] MEDS: PREGABALIN 150 MG CAP PO SCH ×2 (08:08→22:08)
[2020-07-11] MEDS: VENLAFAXINE HCL XR 75 MG CAP PO SCH ×2 (08:08→22:09)
[2020-07-11] MEDS: ASPIRIN 325 MG TAB PO SCH (08:08)
[2020-07-11] MEDS: APIXABAN 5 MG TABLET PO SCH ×2 (08:09→22:09)
[2020-07-11] MEDS: METHYLPREDNISOLONE 40 MG INJ IV SCH ×3 (08:09→22:09)
[2020-07-11] MEDS: AMIODARONE HCL 200 MG TAB PO SCH (08:09)
[2020-07-11] MEDS: BUMETANIDE 1 MG/4 ML VIAL IV SCH (08:09)
[2020-07-11] MEDS: allopurinoL 300 MG TAB PO SCH (08:09)
[2020-07-11] MEDS: NYSTATIN 500,000 UNIT/5 ML UDC PO SCH ×3 (08:09→22:09)
--- NOTE | 2020-07-11 13:30 | RAD REPORT ---
EXAM DESCRIPTION: RAD - Chest Single View - 07/11/2020 1:05 pm CLINICAL HISTORY: Dyspnea COMPARISON: Portable chest July 06, portable chest July 02, CT chest June 25 TECHNIQUE: AP portable chest image was obtained 07/11/2020 1:05 pm . FINDINGS: Lateral right base and right base infrahilar opacification are slightly worse than the 2 r ecent portable chest films. Dense left base opacification is not clearly different. Upper lung summers remain clear. Cardiac silhouette is prominent but stable. Upper lobe vasculature within normal limits. Pacemaker/d efibrillator is in place. No pneumothorax. No enlarging pleural effusion. No acute bony abnormality s een. No acute aortic findings suspected. IMPRESSION: Minimal worsening of right base opacification since July 06 imaging. Dense left base opacification similar to comparison. Developing failure or volume overload not seen.
[2020-07-11] MEDS: CEPACOL LOZENGES PO PRN (13:55)
--- NOTE | 2020-07-11 14:08 | P.PN ---
Subjective Date of Service: 07/11/20 Chief Complaint: Respiratory failure Patient was hypoglycemic this morning. His heart rate is up. Oxygen is up to 10 L by nasal cannula. His oral intake is improving. Physical Examination - Vital Signs Temperature: 97 F Blood Pressure: 90/60 Pulse: 124 Respirations: 22 Pulse Ox (%): 88 - Physical Exam General: Alert, Oriented x3 Neck: JVD not distended Respiratory: Other (Nonlabored breathing.) Cardiovascular: Normal S1 S2, Edema (Trace bilateral lower extremity edema), Irregular heart rate/rhythm Gastrointestinal: Soft and benign, Non-distended Musculoskeletal: No swelling Neurological: Other (No focal motor deficit.) Assessment And Plan - Current Problems (Diagnosis) (1) Pneumonia due to COVID-19 virus Current Visit: Yes Status: Acute (2) Acute respiratory failure with hypoxia Current Visit: Yes Status: Acute (3) Chronic systolic (congestive) heart failure Current Visit: Yes Status: Chronic (4) Diabetes Current Visit: No Status: Chronic (5) Oral candidiasis Current Visit: Yes Status: Acute - Plan Continue high-flow oxygen. On IV Solu-Medrol, vitamin supplementation, zinc supplementation. Status post Ivermectin. Blood pressure is stable. Sputum culture is growing pansensitive Staph aureus. This is being treated with oral Levaquin Continue Eliquis for thromboembolism prophylaxis. Insulin sliding scale and Lantus insulin for glucose management. Status post Remdesivir therapy. Monitor inflammatory markers. Pulmonary is following and assisting with management. Increase activity as tolerated. Physician Review Additional Text: Problem List: acute respiratory failure with hypoxia secondary to COVID-19 pneumonia Chronic Diastolic CHF DM2, non-insulin dependent Congenital Heart Defect, s/p VSD repair, pacemaker/defibrillator h/o Afib/Aflutter Hypothyroidism hyperkalemia PLAN -pulmonary congestion may be contributing to persistent hypoxia on O2 requirements -repeat chest x-ray shows no indication for volume overload. -will discontinue Bumex -continue IV Solu-Medrol -wean O2 as tolerated. -oral candidiasis improving, continue Diflucan, nystatin was ineffective -Continue insulin sliding scale. -discontinue Lantus insulin due to episodes of hypoglycemia. -pulmonary is following. -continue, vitamin supplementation. s/p ivermectin, remdesevir -requried levophed briefly last week, BP stable. R femoral central line removed 4/2 -Sputum culture: pansensitive Staph aureus. Was on levaquin but switched to Doxy on 06/29 given aflutter / pt on amiodarone -leukocytosis resolved but patient has bandemia. -continue Eliquis for thromboembolism prophylaxis. -spironolactone discontinued. He received kayexalate x2 on 07/04 -continue PT VTE: Eliquis Code: full Dispo: Home with home health.
[2020-07-11] MEDS: FLUCONAZOLE 100 MG TAB PO SCH (22:09)
[2020-07-12] MEDS: HYDROCODONE/APAP 7.5/325 MG TAB PO PRN (00:06)
[2020-07-12] MEDS: MIDODRINE HCL 5 MG TABLET PO SCH ×3 (02:11→18:00)
[2020-07-12 03:57] LABS: Absolute Lymphocytes (CBC) 0.2 K/uL (0.7-4.9); Basophils % 0.1 % (0-1.3); Hematocrit 45.8 % (39.6-49.0); Lymphocytes % 7.1 % (15.3-44.8); MPV 12.8 fL (7.6-11.3); RBC Red Blood Cell Count 4.95 M/uL (4.33-5.43)
[2020-07-12 04:16] LABS: Albumin 1.4 g/dL (3.4-5.0); Bilirubin Total 0.8 mg/dL (0.2-1.0); Potassium 5.1 mmol/L (3.5-5.1); Protein, Total 5.5 g/dL (6.4-8.2)
[2020-07-12] MEDS: carvediloL 6.25 MG TAB PO SCH (05:29)
[2020-07-12] MEDS: LEVOTHYROXINE SOD 0.05 MG TABLET PO SCH (05:29)
[2020-07-12] MEDS: D50W 25 GM/50 ML VIAL IV PRN ×2 (06:50→07:00)
[2020-07-12] MEDS ORDERED: NA CHLORIDE 0.9% 1,000 ML ONE ×2 (07:24→16:40)
[2020-07-12] MEDS ORDERED: DEXTROSE 10%-WATER 500 ML IV ONE (07:27)
[2020-07-12] MEDS: INSULIN -REGULAR HUMAN 50 UNIT/0.5 ML ML SQ SCH (07:30)
[2020-07-12] MEDS ORDERED: ALBUMIN HUMAN 25% 200 ML IV ONE ×2 (07:47→08:00)
[2020-07-12] MEDS ORDERED: NOREPINEPHRINE 4 MG in D5W 250 ML IV PRN (07:50)
[2020-07-12] MEDS ORDERED: ALBUMIN HUMAN 25% 50 ML IV ONE (08:09)
[2020-07-12] MEDS ORDERED: NOREPINEPHRINE 4mg/D5W 250mL 4 MG/250 ML BAG IV ONE (08:23)
[2020-07-12] MEDS ORDERED: CEFEPIME 1 GM/VIAL IV SCH (09:00)
[2020-07-12] MEDS: ATORVASTATIN 20 MG TAB PO SCH (09:00)
[2020-07-12] MEDS: PREGABALIN 150 MG CAP PO SCH (09:00)
[2020-07-12] MEDS: allopurinoL 300 MG TAB PO SCH (09:00)
[2020-07-12] MEDS: ASPIRIN 325 MG TAB PO SCH (09:00)
[2020-07-12] MEDS: NYSTATIN 500,000 UNIT/5 ML UDC PO SCH ×3 (09:00→21:00)
[2020-07-12] MEDS: VENLAFAXINE HCL XR 75 MG CAP PO SCH ×2 (09:00→21:00)
[2020-07-12] MEDS ORDERED: VANCOMYCIN 1.5 GM in NA CHLORIDE 0.9% 500 ML IVPB SCH (09:00)
--- NOTE | 2020-07-12 09:24 | P.PN ---
Subjective Date of Service: 07/12/20 Chief Complaint: Altered mental status hypoglycemia Patient's condition deteriorated he became hypoglycemic unresponsive transfer to the ICU currently on high-flow nasal cannula thrombocytopenic unresponsive Review of Systems is unable to be obtained Physical Examination - Vital Signs Temperature: 99.0 F Blood Pressure: 136/99 Pulse: 105 Respirations: 28 Pulse Ox (%): 93 - Physical Exam General: Moderate distress, Unresponsive Respiratory: Clear to auscultation bilaterally, Crackles/rales Cardiovascular: No edema, Irregular heart rate/rhythm Assessment & Plan - Problems (Diagnosis) (1) Pneumonia due to COVID-19 virus Current Visit: Yes Status: Acute Plan: Patient's condition deteriorated was transferred to the ICU increases Solu- Medrol agree with broad-spectrum coverage patient is in AFib reduce dose of aspirin anticoagulation is on hold now thrombocytopenic
[2020-07-12] MEDS: METHYLPREDNISOLONE 40 MG INJ IV SCH ×2 (09:25→21:02)
[2020-07-12] MEDS: CEFEPIME/SWI 1gm 10 ML IVP SCH ×2 (09:25→21:02)
--- NOTE | 2020-07-12 09:29 | RAD REPORT ---
EXAM DESCRIPTION: RAD - Chest Single View - 07/12/2020 8:53 am CLINICAL HISTORY: R/O Pneumo. Central line placement Chest pain. COMPARISON: <Comparisons> FINDINGS: Portable technique limits examination quality. A right-sided venous catheter has been placed. The tip is in the SVC. No pneumothorax is seen.
--- NOTE | 2020-07-12 10:38 | P.CNS ---
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, and AFIb pt presented with, diagnosed with covid 19 pneumonia , Cr 1.6 on admission, Cr improved and stabilized at 0.8, pt was on Bumex and aldactone, on 07/11 notied to have hypoglycemia with poor oral intake and hypotension, Bumex and aldactone stopped, today pt was lethargic and hypotensive , moved to ICU cr 1.4, oliguric , started on levophed ROS unable to provide Physical exam general: lethargic , tachypnic Neck; Supple, No elevated JVD hear: RRR, normal S1,2 no murmur or rub Chest: diffuse rales , tachypnia Abdomen: Soft , Nt Extremities no edema A/p MARCOS with oliguria due to ischemic ATN cont pressers , hold IVF will resume Bumex avoid NSAID and contrast will order renal US And UA acute respiratory failure with hypoxia secondary to COVID-19 pneumonia on High flow O2 on setroids pulmonary following now pt likely have ARDS/ CHF , will reusme Bumex Chronic Diastolic CHF will resume bumex DM2 hypoglycemic now insulin on hold cont D10 Afib rate controlled on amiodarone total time spent 65 min Allergies No Known Drug Allergies Allergy (Verified 03/26/19 03:22) Unknown Home Medications: Amiodarone HCl [Cordarone*] 200 mg PO DAILY 08/27/15 allopurinoL [Zyloprim*] 300 mg PO DAILY 08/27/15 carvediloL [Coreg*] 25 mg PO BID 08/27/15 Pregabalin [Lyrica*] 150 mg PO BID 10/07/15 Venlafaxine HCl [Effexor Xr] 1 cap PO BID 10/07/15 Atorvastatin Calcium 2 tab PO DAILY 03/26/19 Sacubitril/Valsartan [Entresto 49 mg-51 mg Tablet] 1 tab PO BID 03/26/19 Hydrocodone Bit/Acetaminophen [Hydrocodon-Acetaminoph 7.5-325] 1 each PO Q6HP PRN 06/23/20 Levothyroxine [Synthroid] 50 mcg PO [id number] 06/23/20 Spironolactone [Aldactone] 25 mg PO DAILY 06/23/20 Torsemide [Demadex] 20 mg PO DAILY 06/23/20 hydrOXYzine HCL [Atarax] 25 mg PO QID 06/23/20 - Past Medical/Surgical History Diabetic: Yes -: CAD -: CHF -: Hyperlipidemia -: NIDDM -: gout -: HTN -: constipation -: insomnia -: peripheral neuropathy -: depression -: Chronic pain -: ADD/ADHD -: vasectomy -: pacemaker/defibrillator -: VSD repair -: Back & neck surgery - Family History Father Medical History: Heart disease Mother Notes: Alzheimer's - Social History Smoking Status: Never smoker Alcohol use: No CD- Drugs: No Caffeine use: Yes Physical Examination Temp Pulse Resp BP Pulse Ox 96.8 F 61 18 110/62 93 07/12/20 09:23 07/12/20 09:23 07/12/20 09:23 07/12/20 09:23 07/12/20 09:23
--- NOTE | 2020-07-12 11:26 | P.PN ---
Subjective Date of Service: 07/12/20 Chief Complaint: Respiratory failure Patient developed an episode of hypoglycemia and became altered. Rapid response was called. He was given D50 and started on IV D10. Patient transferred to the ICU where he became hypotensive. He received a dose of Coreg prior to the rapid response. Patient remain altered after blood sugar correction. General surgery consulted. Central line placed. Patient started on vasopressors. Was also given normal saline bolus and albumin infusion. Physical Examination - Vital Signs Temperature: 96.8 F Blood Pressure: 110/62 Pulse: 61 Respirations: 18 Pulse Ox (%): 93 - Physical Exam General: Unresponsive HEENT: PERRLA, Mucous membr. moist/pink, EOMI Neck: JVD not distended Respiratory: Crackles/rales (Bilateral) Cardiovascular: Normal S1 S2, No murmurs, Edema (Trace bilateral lower extremity edema.), Irregular heart rate/rhythm Gastrointestinal: Soft and benign, Non-distended, No tenderness Musculoskeletal: No swelling Integumentary: No rashes Neurological: Other (Unresponse. He moves all extremities spontaneously.) Assessment And Plan - Current Problems (Diagnosis) (1) Pneumonia due to COVID-19 virus Status: Acute (2) Acute respiratory failure with hypoxia Status: Acute (3) Chronic systolic (congestive) heart failure Status: Chronic (4) Diabetes Status: Chronic (5) Oral candidiasis Status: Acute (6) Septic shock Status: Acute (7) Atrial fibrillation Status: Acute (8) Hypoglycemia Status: Acute Physician Review Additional Text: Problem List: acute respiratory failure with hypoxia secondary to COVID-19 pneumonia Chronic Diastolic CHF DM2, non-insulin dependent Congenital Heart Defect, s/p VSD repair, pacemaker/defibrillator h/o Afib/Aflutter Hypothyroidism hyperkalemia PLAN -start IV cefepime and vancomycin. -blood cultures repeated. -vasopressors:Levophed, phenylephrine as needed. -continue to hold Bumex -continue IV Solu-Medrol -oxygen therapy -change Diflucan from oral to IV -insulin therapy discontinued. -pulmonary is following. -Sputum culture: pansensitive Staph aureus. Was on levaquin but switched to Doxy on 06/29 given aflutter / pt on amiodarone -Eliquis on hold due to thrombocytopenia -spironolactone discontinued. He received kayexalate x2 on 4/3 -prognosis is guarded. DVT: SCD Code: full
[2020-07-12] MEDS ORDERED: NOREPINEPHRINE 8 MG in Dextrose 5%-Water 500 ML IV PRN (14:02)
[2020-07-12] MEDS ORDERED: Phenylephrine HCl 10 MG/ML 1 ML VIAL ONE ×2 (16:05→21:41)
[2020-07-12] MEDS ORDERED: RSI MEDICATION KIT IV ONE (16:13)
[2020-07-12] MEDS ORDERED: AMIODARONE HCL 150 MG in D5W 100 ML IV STA (16:16)
[2020-07-12 16:44] LABS: Absolute Lymphocytes (CBC) 0.1 K/uL (0.7-4.9); Basophils % 0.2 % (0-1.3)
--- NOTE | 2020-07-12 16:56 | P.PN ---
Date of Service: 07/12/20 Patient remaining unresponsive. He remain hypotensive despite 2 vasopressors-Levophed and phenylephrine. Note shallow irregular breathing and hypoxia. HR up to 110 and in Afib. WBC 1.9, Platelet down to 19. Lactic acid severely elevated to 9. Liver enzymes severely elevated. Patient has septic shock. I also suspect DIC. Shocked Liver. Hyperkalemia Metabolic encephalopathy Multi-organ failure. I spoke to the Spouse and updated her on patient's critical condition. Patient intubated and mechanical ventilation started. He is given 1 L NS bolus. S/p Albumin infusion this morning. Now febrile. Cooling blanket place on him. Labs- CBC, CMP, Lactic acid troponin drawn. Amiodarone 150 mg IV bolus given. EKG after amiodarone bolus: Sinus rhythm, first degree AV block. Continue IV antibiotics. Poor prognosis. I spoke to the and Daughter. I discussed poor prognosis and DNR. want to discuss the situation with patient's brother before making a decision on DNR. They want to continue aggressive treatment for now. Critical Care time spent: 68 minutes.
[2020-07-12] MEDS ORDERED: AMIODARONE HCL 450 MG in D5W 241 ML IV SCH (17:00)
[2020-07-12] MEDS ORDERED: AMIODARONE IN DEXTROSE,ISO-OSM 360 MG/200 ML BAG IV ONE (17:05)
[2020-07-12] MEDS ORDERED: AMIODARONE HCL 150 MG/3 ML INJ IV ONE ×2 (17:11→17:14)
[2020-07-12] MEDS ORDERED: D5W 250 ML IV ONE (17:14)
[2020-07-12 17:19] LABS: Albumin 1.9 g/dL (3.4-5.0); Bilirubin Total 2.2 mg/dL (0.2-1.0); Protein, Total 4.5 g/dL (6.4-8.2)
[2020-07-12 17:20] LABS: Hematocrit 30.9 % (39.6-49.0); MPV 10.6 fL (7.6-11.3); RBC Red Blood Cell Count 3.19 M/uL (4.33-5.43)
[2020-07-12 17:21] LABS: Potassium 6.3 mmol/L (3.5-5.1); Troponin I 28.1 ng/mL (0.0-0.045)
--- NOTE | 2020-07-12 17:21 | RAD REPORT ---
EXAM DESCRIPTION: RAD - Chest Single View - 07/12/2020 4:45 pm CLINICAL HISTORY: ET Position Chest pain. COMPARISON: Chest Single View dated 07/12/2020; Chest Single View dated 07/11/2020; Chest Single View dated 07/06/2020; Chest Single View dated 07/02/2020 FINDINGS: Portable technique limits examination quality. Tip of the ET tube is at the level of the aortic arch. Mild worsening in bilateral pulmonary opacitie s are seen since comparative study earlier same date. Right-sided PICC line has tip in the SVC.Multi lead pacer/defibrillator device is present. The heart is mildly enlarged in size.
[2020-07-12] MEDS ORDERED: VASOPRESSIN 80 UNIT in NA CHLORIDE 0.9% 250 ML IV PRN (17:50)
[2020-07-12] MEDS ORDERED: SOD POLYSTYREN SUL 15 GM/60 ML UCUP PO ONE (17:53)
[2020-07-12 17:54] LABS: Blood Morphology Comment NOT SEEN (NOT SEEN); Platelet Estimate DECR; White Blood Cell Scan OK (OK)
[2020-07-12] MEDS ORDERED: VASOPRESSIN 20 UNIT/ML VIAL ONE ×3 (17:59→18:46)
--- NOTE | 2020-07-12 18:08 | P.PN ---
Patient remaining unresponsive. He remain hypotensive despite 2 vasopressors-Levophed and phenylephrine. Note shallow irregular breathing and hypoxia. HR up to 110 and in Afib. WBC 1.9, Platelet down to 19. Lactic acid severely elevated to 9. Liver enzymes severely elevated. Patient has septic shock. I also suspect DIC. Shocked Liver. Hyperkalemia Metabolic encephalopathy Multi-organ failure. I spoke to the Spouse and updated her on patient's critical condition. Patient intubated and mechanical ventilation started. He is given 1 L NS bolus. S/p Albumin infusion this morning. Now febrile. Cooling blanket place on him. Labs- CBC, CMP, Lactic acid troponin drawn. Amiodarone 150 mg IV bolus given. EKG after amiodarone bolus: Sinus rhythm, first degree AV block. Continue IV antibiotics. Platelet count is low. Patient bled from the central line. Will order 2 units of platelets. Poor prognosis. I spoke to the and Daughter. I discussed poor prognosis and DNR. want to discuss the situation with patient's brother before making a decision on DNR. They want to continue aggressive treatment for now. Critical Care time spent: 68 minutes.
[2020-07-12 18:18] LABS: Arterial Blood Carboxyhemoglob 0.4 % (0-1.5); Blood Gas Oxyhemoglobin 76.8 % (94-97)
[2020-07-12] MEDS ORDERED: NA CHLORIDE 0.9% 250 ML ONE ×2 (18:22→20:20)
[2020-07-12 18:36] LABS: Protime INR 6.66
[2020-07-12] MEDS: NA CHLORIDE 0.9% 1,000 ML IV ONE ×2 (18:36→21:04)
[2020-07-12] MEDS: VASOPRESSIN 20 UNIT/ML VIAL ONE ×2 (18:52→18:53)
[2020-07-12] MEDS ORDERED: NA CHLORIDE 0.9% 250 ML IV SCH (19:00)
[2020-07-12] MEDS ORDERED: D5 0.9 NS 1,000 ML IV SCH (19:00)
[2020-07-12] MEDS ORDERED: SODIUM BICARB 50 MEQ/50ML VIAL ONE (19:42)
[2020-07-12] MEDS ORDERED: SOD POLYSTYREN SUL 15 GM/60 ML UCUP ONE (19:43)
[2020-07-12] MEDS ORDERED: BUMETANIDE 1 MG/4 ML VIAL IV SCH (21:00)
[2020-07-12] MEDS: FLUCONAZOLE 100 MG TAB PO SCH (21:02)
[2020-07-12] MEDS ORDERED: EPINEPHrine 1 MG/10 ML SYR IV ONE (21:47)
[2020-07-13 03:44] VITALS: O2SAT 79
--- NOTE | 2020-07-13 07:14 | EKG ---
Test Date: 2020-07-12 Test Time: 16:45:13 Tube Building Machine Operator: BALDEV MEASUREMENT RESULTS: Intervals: Rate: 79 MD: 260 QRSD: 216 QT: 468 QTc: 536 [place]: P: MD: 260 QRS: 180 T: 24 INTERPRETIVE STATEMENTS: Sinus rhythm with 1st degree AV block Right bundle branch block Septal infarct, age undetermined Abnormal ECG Compared to ECG 06/26/2020 20:28:44 First degree AV block now present Myocardial infarct finding now present Sinus tachycardia no longer present T-wave abnormality no longer present Possible ischemia no longer present Electronically Signed On 07-13-20 07:13:58 CDT by Errol Powers
[2020-07-13] MEDS ORDERED: ASPIRIN EC 81 MG TAB PO SCH (09:00)
[2020-07-13 19:18] VITALS: BP 110/62; TEMP 96.8
--- NOTE | 2020-07-13 19:36 | P.DS ---
Admission Date: 06/23/20 Discharge Date: 07/12/20 Disposition: Reason for Admission: Respiratory failure - Problems (1) Pneumonia due to COVID-19 virus Status: Acute (2) Acute respiratory failure with hypoxia Status: Acute (3) Chronic systolic (congestive) heart failure Status: Chronic (4) Diabetes Status: Chronic (5) Oral candidiasis Status: Acute (6) Septic shock Status: Acute (7) Atrial fibrillation Status: Acute (8) Hypoglycemia Status: Acute Brief History of Present Illness: 55-year-old gentleman with a history of diabetes mellitus type 2, hypertension presented emergency department with increased shortness of breath, cough and general malaise. Patient stated he was diagnosed with COVID 19 infection about 4-5 days ago. He was hypoxic on room air in respiratory distress on arrival to the ED. Patient was placed on BiPAP therapy. Chest x-ray demonstrated bilateral infiltrates. Patient given Solu-Medrol prior to arrival to the ED. Was also given a dose of IV Zithromax. Patient hospitalized for further management. Hospital Course: Patient was admitted to the medical floor and treated aggressively for COVID pneumonia with hypoxia with IV steroid, vitamin D CRUZ and zinc supplementation. Patient received convalescent plasma, Remdesivir therapy, and Ivermectin. His hospital course was protracted, he required high-flow oxygen and BiPAP for several days, he eventually weaned to oxygen by nasal cannula. His sputum grew fountain-sensitive Staph aureus which was treated with Levaquin followed by doxycycline. He developed oral candidiasis which was treated with Diflucan. He had previous episode of hypotension treated briefly with Levophed. Patient cli nical condition began to decline and was requiring more oxygen. He developed septic shock with DIC. He was intubated and placed on mechanical ventilation. He was put on three vasopressors but was still hypotensive, and also hypoxic despite being on a mechanical ventilation. Patient continued to declined, he developed PEA, code blue was called, ACLS carried out, patient was not revived. He on 07/12/2020 at 2148 hours. Vital Signs/Physical Exam: Temp Pulse Resp BP Pulse Ox 96.8 F 61 18 110/62 93 07/13/20 19:17 07/13/20 19:17 07/13/20 19:17 07/13/20 19:17 07/13/20 19:17 Laboratory Data at Discharge: WBC 1.90 K/uL (4.3-10.9) L* 07/12/20 16:30 Hgb 10.0 g/dL (13.6-17.9) L D 07/12/20 16:30 Hct 30.9 % (39.6-49.0) L D 07/12/20 16:30 Plt Count 19 K/uL (152-406) L* D 07/12/20 16:30 PT 78.1 SECONDS (9.5-12.5) H 07/12/20 16:36 INR 6.66 H* 07/12/20 16:36 APTT 38.4 SECONDS (24.3-36.9) H 07/12/20 16:36 Sodium Cancelled 07/13/20 05:00 Potassium Cancelled 07/13/20 05:00 BUN Cancelled 07/13/20 05:00 Creatinine Cancelled 07/13/20 05:00 Glucose Cancelled 07/13/20 05:00 Phosphorus 3.5 mg/dL (2.5-4.9) 07/03/20 03:45 Magnesium 2.0 mg/dL (1.8-2.4) 07/09/20 03:08 Total Bilirubin Cancelled 07/13/20 05:00 AST Cancelled 07/13/20 05:00 ALT Cancelled 07/13/20 05:00 Alkaline Phosphatase Cancelled 07/13/20 05:00 Troponin I 28.10 ng/mL (0.0-0.045) H* 07/12/20 16:30 Triglycerides 85 mg/dL (<150) 06/24/20 03:40 Cholesterol 146 mg/dL (<200) 06/24/20 03:40 HDL Cholesterol 52 mg/dL (40-60) 06/24/20 03:40 Cholesterol/HDL Ratio 2.81 06/24/20 03:40 Amylase 48 U/L (25-115) 06/23/20 06:30 Lipase 120 U/L (73-393) 06/23/20 06:30 Home Medications: Amiodarone HCl [Cordarone*] 200 mg PO DAILY 08/27/15 allopurinoL [Zyloprim*] 300 mg PO DAILY 08/27/15 carvediloL [Coreg*] 25 mg PO BID 08/27/15 Pregabalin [Lyrica*] 150 mg PO BID 10/07/15 Venlafaxine HCl [Effexor Xr] 1 cap PO BID 10/07/15 Atorvastatin Calcium 2 tab PO DAILY 03/26/19 Sacubitril/Valsartan [Entresto 49 mg-51 mg Tablet] 1 tab PO BID 03/26/19 Hydrocodone Bit/Acetaminophen [Hydrocodon-Acetaminoph 7.5-325] 1 each PO Q6HP PRN 06/23/20 Levothyroxine [Synthroid] 50 mcg PO [id number] 06/23/20 Spironolactone [Aldactone] 25 mg PO DAILY 06/23/20 Torsemide [Demadex] 20 mg PO DAILY 06/23/20 hydrOXYzine HCL [Atarax] 25 mg PO QID 06/23/20
== END 2020-07-12 21:48 | disposition expired | DRG 871 ==
LOC: ER 06:31 → ERHOLD 09:44 → 4TH 16:34 → 3RD-ICU 06-24 05:32 → 4TH 07-02 18:12 → 3RD-ICU 07-12 07:25
PROVIDERS: ADMIT Internal Medicine; ATTEND Internal Medicine
PROC: XW033E5 Introduction of Remdesivir Anti-infective into Peripheral Vein, Percutaneous Approach, New Technology Group 5 (ICD-10-PCS; 2020-06-23)
PROC: 5A09457 Assistance with Respiratory Ventilation, 24-96 Consecutive Hours, Continuous Positive Airway Pressure (ICD-10-PCS; principal; 2020-07-08)
PROC: 5A1935Z Respiratory Ventilation, Less than 24 Consecutive Hours (ICD-10-PCS; 2020-07-12)
PROC: 0BH17EZ Insertion of Endotracheal Airway into Trachea, Via Natural or Artificial Opening (ICD-10-PCS; 2020-07-12)
PROC: XW13325 Transfusion of Convalescent Plasma (Nonautologous) into Peripheral Vein, Percutaneous Approach, New Technology Group 5 (ICD-10-PCS; 2020-07-12)
PROC: 02HV33Z Insertion of Infusion Device into Superior Vena Cava, Percutaneous Approach (ICD-10-PCS; 2020-07-12)
DX: A41.89 Other specified sepsis (principal); U07.1 COVID-19; R65.21 Severe sepsis with septic shock; J12.82 Pneumonia due to coronavirus disease 2019; J96.01 Acute respiratory failure with hypoxia; N17.0 Acute kidney failure with tubular necrosis; K72.00 Acute and subacute hepatic failure without coma; G93.41 Metabolic encephalopathy; I50.22 Chronic systolic (congestive) heart failure; B37.0 Candidal stomatitis; I42.9 Cardiomyopathy, unspecified; I11.0 Hypertensive heart disease with heart failure; I25.10 Atherosclerotic heart disease of native coronary artery without angina pectoris; D69.6 Thrombocytopenia, unspecified; E87.5 Hyperkalemia; E11.649 Type 2 diabetes mellitus with hypoglycemia without coma; E03.9 Hypothyroidism, unspecified; I48.91 Unspecified atrial fibrillation; G89.29 Other chronic pain; Q24.9 Congenital malformation of heart, unspecified; K59.09 Other constipation; M10.9 Gout, unspecified; E78.5 Hyperlipidemia, unspecified; B95.61 Methicillin susceptible Staphylococcus aureus infection as the cause of diseases classified elsewhere; Z95.810 Presence of automatic (implantable) cardiac defibrillator; Z79.890 Hormone replacement therapy; Z79.899 Other long term (current) drug therapy; Z66 Do not resuscitate
CPT/HCPCS: 36415; 36430; 70450; 71045; 71275; 76700; 80048; 80053; 80061; 80076; 80202; 81003; 81015; 82150; 82550; 82553; 82728; 82805; 82947; 83605; 83690; 83735; 84100; 84145; 84450; 84460; 84484; 85025; 85379; 85384; 85610; 85730; 86140; 86900; 86901; 87040; 87070; 87077; 87186; 87205; 93005; 93306; 94002; 94003; 94010; 94660; 94760; 96361; 96365; 96372; 97110; 97112; 97116; 97161; 97530; 99285; J0171; J0282; J0456; J0692; J0696; J1644; J1650; J1815; J2370; J2405; J2920; J2930; J3370; J3480; J7030; J7040; J7042; J7050; J7060; J7799; P9047; P9059; Q9967